=== PATIENT | male | born 1955 | race Caucasian/White ===

== ENCOUNTER 2018-07-02 09:00 | Outpatient (RCR) | payer BC, SELFPAY ==
--- NOTE | 2018-07-02 09:10 | BH.SGPN.GN ---
Behaviors/Verbalizations/Mental Status: [] Eye contact is good. Motor activity is appropriate. Appearance is casual. Speech is Appropriate. Mood is anxious/depressed. Affect is congruent. Thoughts are linear and logical. No evidence of psychosis. Reviewed daily check in sheet and reported 03/09/ for suicidal ideations and 03/09 for intent. Therapist notified Client Response/Progress/Benefit: [] Pt spoke when prompted however was attentive. This was patient's first day in IOP. Shared with the group what led to admission. Reports overwhelming depression recently. Discussed of his adult son 3 years ago in car accident and I just can't get over it... I've hit a wall. Isolating and utilizing unhealthy coping skills such as drinking to numb emotions. Talked at length about difficulty managing his emotions with limited benefit from medications and traditional counseling. No progress noted. Benefited from group support and encouragement. Will continue in IOP to maintain safety, stabilize mood, and increase coping skills. Narrative Note: []
--- NOTE | 2018-07-02 10:15 | BH.SGPN.GN ---
Behaviors/Verbalizations/Mental Status: []Client alert and oriented, neatly dressed and groomed. Eye contact fair-eyes closed at times and rubbing his head. Motor activity appropriate. Speech within normal limits. Affect constricted, mood depressed. Thoughts linear, logical, no signs of hallucinations or delusions. Client Response/Progress/Benefit: []Client responded well to session, quiet, but nodding frequently. Client listened to comments on the quote and nodded when the group mentions in order to ?carry the load? one needs coping skills. The group mentioned there are unhealthy and healthy coping skills that one learns over the years. Client nodded that healthy coping skills have more benefits; however, most people turn to unhealthy coping skills such as drinking, overworking, or avoidance because it is easier. The group mentioned often negative consequences occur from using unhealthy coping skills. Client engaged in the activity and was able to make the connection that one must have a strong base of internal and external coping skills. Client realized that during the activity his group kept looking for the ?quick fix? which they were able to connect to reverting to using coping skills that are easy, but not always healthy. Client appeared to benefit from increasing awareness of the importance of developing healthy coping skills. Client?s first day of IOP. Client to continue to prevent decompensation and reduce depressive symptoms.
--- NOTE | 2018-07-02 11:20 | BH.SGPN.GN ---
Behaviors/Verbalizations/Mental Status: [Pt eye contact good, casually dressed, motor activity appropriate, speech normal rate and tone -limited input provided, mood anxious and depressed, congruent affect, thoughts linear and intact, no evidence of delusions or hallucinations.] Client Response/Progress/Benefit: [Pt providing limited input to group due to it being his first day and is adjusting to group environment. He did well to remain attentive to group discussion on different types of coping skills AEB maintaining eye contact and taking notes throughout. Pt nodding during discussion on pros/cons of each category of coping skill discussed. Pt seemed to benefit from increasing repertoire of healthy coping skills and displayed progress in ability to recognize types of coping skills he would benefit from further developing. Identified wanting to improve use of grounding related coping skills. Pt recommended to continue IOP level of care to promote utilization of healthy coping skills, reduce depression, promote stability and maintain safety.] Narrative Note: []
--- NOTE | 2018-07-02 14:02 | BH.COMM ---
Communication Note - Communication with Client Communication Note: Therapist followed up with client as it was his first day in [facility]. Client reported group was helpful and it really sunk in with me. Therapist also assessed risk and suicidality as client marked 1/5 for thoughts of suicide and risk of suicide. Client declined any suicidal thoughts, plan, or intent as of 07/02/18. Client reported confusion on the self-assessment scale, I didn't think it went lower than 1. Client reported I have no suicidal thoughts at all. Client reports plan to attend group again on 07/04/18.
--- NOTE | 2018-07-02 14:06 | BH.COMM_ITS ---
Communication Note - Communication with Client Communication Note: Therapist followed up with client as it was his first day in [facility]. Client reported group was helpful and it really sunk in with me. Therapist also assessed risk and suicidality as client marked 1/5 for thoughts of suicide and risk of suicide. Client declined any suicidal thoughts, plan, or intent as of 07/02/18. Client reported confusion on the self-assessment scale, I didn't think it went lower than 1. Client reported I have no suicidal thoughts at all. Client reports plan to attend group again on 07/04/18.
--- NOTE | 2018-07-02 16:17 | BH.DR.ITP ---
Initial Treatment Plan - Patient Information Visit Information: ADMISSION DATE: 07/02/18 EXPECTED LOS: 4-6 weeks Diagnoses:: MDD, recurrent, unspecified. LOLY. Adjustment Disorder - Problems/Symptoms Problem #1:: Depression Symptom:: sadness, passive thoughts of , grieving Problem #2:: Anxiety Symptom:: anxiety, worry, difficulty coping with stress Problem #3:: Alcohol Use Disorder Symptom:: self-medication with alcohol, lack of coping skills
== END 2018-07-02 23:59 ==
LOC: BHIOP 09:00
PROVIDERS: Referring Provider Psychiatry & Neurology Psychiatry; Visit Provider Psychiatry & Neurology Psychiatry
DX: F33.9 Major depressive disorder, recurrent, unspecified (principal); F41.1 Generalized anxiety disorder; F43.20 Adjustment disorder, unspecified
CPT/HCPCS: H0035; 90853

== ENCOUNTER 2018-07-04 09:00 | Outpatient (RCR) | payer BC, SELFPAY ==
--- NOTE | 2018-07-04 09:10 | BH.SGPN.GN ---
Behaviors/Verbalizations/Mental Status: [] Eye contact is good. Motor activity is appropriate. Appearance is casual. Speech is Appropriate. Mood is depressed. Affect is flat. Thoughts are linear and logical. No evidence of psychosis. Reviewed daily check in sheet with no reports of suicidal ideations. Client Response/Progress/Benefit: [] Pt spoke when prompted. Emotion for today is scattered. Reports that he continues to severely struggles with controlling negative and intrusive thoughts. Feels embarrassed that he has no control over his thoughts and emotions. I'm always down on myself. Talked at length regarding his daily struggle with depression. Discussed coping skills which had been effective for anxiety such as mindfulness being ineffective for depression. States I can't believe that I'm actually like this group thing. Reports benefit from support and feeling as if he is not alone. Set goal not to drink this week. Will continue in IOP to maintain safety, improve coping for depression, prevent decompensation. Narrative Note: []
--- NOTE | 2018-07-04 11:10 | BH.SGPN.GN ---
Behaviors/Verbalizations/Mental Status: []Client alert and oriented, neatly dressed and groomed. Eye contact good. Motor activity appropriate. Speech within normal limits. Affect congruent to topics being discussed, mood depressed Thoughts linear, logical, no signs of hallucinations or delusions. Client Response/Progress/Benefit: []Client responded well to session, quiet, but engaged when prompted. Client listened as the group processed the activity and nodded that communication and tuning out the negatives helped the group accomplish the activity. Client completed the fear of failure worksheet and he reported that his biggest fear of failure is letting down the people he cares about. Client reported no desire to address conflict is his barrier to overcoming fear of failure. Client helped the group identify strategies to overcome fear of failure and client selected a goal to help him overcome his fear of failure. Client?s goal is to work on ?doing the anxious thing.? Client shared he has been avoiding things over the past few months, but he is more willing to take small steps now. Client appeared to benefit from gaining awareness and setting a goal to reduce fear of failure. Client?s second day of IOP, so no significant progress to document. Client to continue IOP to prevent decompensation and increase mood stability.
--- NOTE | 2018-07-05 10:15 | BH.SGPN.GN ---
Behaviors/Verbalizations/Mental Status: []Client alert and oriented, neatly dressed and groomed. Eye contact good. Motor activity appropriate. Speech within normal limits. Affect constricted, mood depressed, anxious. Thoughts linear, logical, no signs of hallucinations or delusions. Client Response/Progress/Benefit: []Client was a passive participant in group discussion and activity. Group worked together to identify the benefits of setting goals which included; increased motivation, maintenance in progress, accountability, sense of accomplishment, and hope. Group discussed the barriers to following through with completing a goals which included; high expectations, low motivation, negative self-talk, putting other?s needs first, hopelessness, and not knowing where to start. Client took notes and was nodding throughout discussion. Client was attentive during psychoeducation on developing SMART (Specific, Measurable, Achievable, Realistic, Timely) goals as a tool to help with goal setting. Client?s affect and mood improved during the activity and he helped the group set realistic goals. Benefited from group by learning effective strategies for goal-setting and identifying barriers to completing goals.
--- NOTE | 2018-07-05 11:20 | BH.SGPN.GN ---
Addendum entered and electronically signed by Cele Casas [facility] 07/09/18 10:51: Addendum added to include missing section of goal of group and staff interventions. Goal of group: The goal of group was to identify a short-term SMART goal to benefit mental health, explore potential barriers to achieving that set goal, and identify strategies to overcome barriers. Staff Interventions: Therapist facilitated group activity in which group members identified a goal to work on over the next week. Therapist asked group members to identify barriers to achieving identified goal and strategies to help them achieve their goal. Therapist led group in processing their goal, assisting clients with establishing SMART goals. Therapist provided support by using reflective listening. Original Note: Behaviors/Verbalizations/Mental Status: []Pt alert and oriented, eye contact good, casually dressed, motor activity appropriate, speech normal rate and tone, mood anxious, congruent affect, thoughts linear and intact, no evidence of delusions or hallucinations. Client Response/Progress/Benefit: []Pt appeared disengaged during group discussion however did complete goal setting worksheet. Pt identified her short-term SMART goal is to go outside for at least 10 minutes a day. Pt stated this goal will benefit her decreasing isolation. Pt identified not having time as one obstacle that could get in the way of her accomplishing her goal. Pt stated she can overcome not having time by putting it into her daily schedule. Pt stated another barrier apathy which she stated she can overcome this barrier by reminding herself of the benefits and taking her daughter outside with her. Pt seemed to benefit from creating a SMART goal. Pt to continue IOP level of care to decrease negative self-talk, maintain safety and prevent decompensation. Narrative Note: []
--- NOTE | 2018-07-05 15:12 | HP.PCM_ITS ---
History and Physical Date of Admission: 07/02/18 Chief Complaint: The patient is a 62-year old male who is beginning treatment in the intensive outpatient mental treatment program at [facility]. He has a history of generalized anxiety and recent worsening depression. He also has marital problems, some personality vuln erabilities, alcohol problems, and grief issues. History of Present Illness: The patient reports that he has had anxiety problems for most of his life. He is a big worrier and tends to worry about many different things. His anxiety has been under fairly good control with the help of his medications. Next Patient reports that he has had problems with depression ever since his son 3 years ago. He worked through his initial grief issues with the help of therapy. However, on the anniversary of his son's he becomes depressed again. His depression has worsened more this year, the third anniversary of his son's . He became increasingly depressed about 3 weeks ago. He does say that his medications are helping him. His sleep and appetite are good. His energy level is good. He denies crying spells. He is able to enjoy some things in life. He does have hope for the future. He denies suicidal thoughts. Patient reports problems in his marriage. He has been for 38 years. For the most part things are going pretty well until several years ago when he found out that his had taken out credit cards that he was not aware of had been spending large amounts of money. He had planned to retire at age 57 but then had to keep working to pay off the credit card bills. He confronted his about her spending, and she reportedly made light of it, said that she would cut down on her spending. However, he was deeply wounded by her behavior and thought of it as a betrayal of their marriage. He is still suspicious and worried that she is spending money excessively. In addition, he has started ruminating over his 's partners prior to their marriage - he is obsessing over betrayal issues. He has not been able to talk to his about these issues because he feels that he would lose his temper and cause problems in the marriage. Instead, he holds his resentment N and drinks alcohol excessively. The patient has a history of personality vulnerabilities. He has had anger problems all of his life. In his younger years he used to get into frequent fights. He would also drink alcohol and his anger became worse. He said that his anger problems improved after his marriage and only came out again in the setting of his 's spending of money. During the evaluation, the patient expressed his demoralization and I provided supportive therapy. Past Psychiatric History: The patient has never been admitted to a psychiatric hospital. He said that in the past he has gone to the emergency room on 2 occasions because of chest pains caused by panic symptoms and anxiety. He denies any history of suicide attempts. He has been receiving outpatient mental health care through [facility] for the past year and sees a therapist and nurse practitioner. He first received mental health treatment 3 years ago after his son . Current Psychiatric Medications: Effexor XR 225 mg daily, BuSpar 15 mg 3 times daily, Ativan 1 mg as needed Medical History: The patient has hypercholesterolemia treated with atorvastatin. Allergies: No known drug allergies Family Psychiatric History: The patient's mother and brother have depression. Personal/Social History: The patient's mother 2 years ago and his father 4 years ago. He reported a happy upbringing and said that he was raised in a [employer] family. He continues to live with his 2 brothers and sister on a [place] and said they get along well together. He dropped out during his first year of college. 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 He has been for 38 years and there have been problems in the marriage as per the HPI. He has 1 son who in an accident 3 years ago. Substance abuse history: The patient stated that he was a heavy drinker during high school and young adulthood. Drinking cut down after his marriage. Drinking worsened 4 or 5 years ago in the setting of marital problems. Binge drinks on Mondays and Fridays until I do not feel any pain. He has at least 4 drinks at a time. He has a history of hangovers but no blackouts. Denied any illegal drug use. Review of Systems: Psychiatry: Symptoms of depression and grieving as per HPI. He is not suicidal. There is no psychosis. He is cognitively intact. Constitutional: He is of muscular build and his weight has been steady. His energy level is good. He has hypercholesterolemia. All other systems reviewed and are negative. Examination: The patient presented as a demoralized male with short hair who is neatly dressed and groomed. He demonstrates good social skills. Vital signs: Height 5 feet 10 inches, weight 215 pounds, respirations 16. Musculoskeletal: No muscle weakness or joint pain. His speech is fluent and spontaneous. Leg which is intact. His judgment and insight are fair. He is alert and oriented x3. His affect is distressed and demoralized. His recent and remote memory are intact. He demonstrates normal attention span and concentration. He has normal thought processes and abstract reasoning. His associations are intact. There are no hallucinations or delusions and he is not suicidal or homicidal. He demonstrates normal age-appropriate fund of knowledge. Mental Status Examination: Patient presents as a demoralized male who demonstrates good social skills. His thoughts are logical and coherent. He reported some symptoms of depression and grieving as per HPI. He is not suicidal. There is no psychosis. He is cognitively intact. Diagnoses: [] Naylor I: Depressive disorder unspecified; generalized anxiety disorder; bereavement T: Relationship distress with spouse: Alcohol use disorder Naylor II: Personality vulnerabilities with angry traits Naylor III: Hypercholesterolemia Plan: The patient will continue current medicines at their current doses. Will participate in the intensive outpatient groups. I recommended couples therapy. During the evaluation I provided 17 minutes of supportive and prolem-solving therapy.
--- NOTE | 2018-07-05 15:12 | BH.DR.ITP ---
Initial Treatment Plan - Patient Information Visit Information: ADMISSION DATE: EXPECTED LOS: 4-6 weeks Diagnoses:: Depression unspecified; LOLY; adjustment disorder with disturbance of emotions ; alcohol use disorder - Problems/Symptoms Problem #1:: depression Symptom:: feeling sad; grieving; some passive thoughts Problem #2:: anxiety Symptom:: worry, feeling anxious, problems coping with stress Problem #3:: alcohol use disorder Symptom:: lack of coping skills, using alcohol for self-medication
--- NOTE | 2018-07-05 16:31 | BH.MDN_ITS ---
Multi-Disciplinary Note - Note 30-min Individual Time Started:: 09:25 Date: 07/05/18 Purpose of session/treatment goals addressed:: Purpose of session was to assess pt's current symptoms and stressors. Also started discussion about treatment goals for IOP and processed underlying stressor. Eye Contact:: Good Motor Activity:: Appropriate Appearance:: Casual Speech:: Appropriate Mood:: Anxious, Depressed Affect:: Constricted Thoughts:: Linear, Logical, No evidence of hallucinations/delusions noted Staff Interventions:: Therapist used open ended qeustions to elicit pt's current symptoms and stressors. Therapist processed pt's current emotional stressor of not dealing with a situation from his past. Therapist elicited pt's thoughts about treatment goals for IOP. Therapist provided support by using active listening and validating emotions. Client Response:: Client shared he has been struggling with managing his depressive symptoms. Client reported he is better able at managing his anxious symptoms because he utilizes mindfulness skills. Client shared the third anniversary of his son's was last month which has exasperated his depressive symptoms. Client stated he is upset with himself for not being able to just move on. Client shared he believes the underlying issue that is contributing to his depression is something that happened about 15 years ago that he hasn't talked about until he met with the psychiatrist this morning. Client reported about 15 years ago he found out his got them into over $75,000 in debt which he didn't know until was being called by various creditors. Client stated at the time his refused to talk about what happened and what had happened to all their money. Client shared despite feeling like she broke his trust with the situation he chose to stay in the marriage and just move on. Client shared he is frustrated for himself for not being able to just man up about the situation. Client reported he is starting to recognize pushing down his feelings are not healthy for him which he stated has resulted in him starting to use alcohol as a coping skill at times. Client stated he is unsure if he is ready to address the situation with his because he is wo rried she will view him as weak and doesn't want to upset her. Client recognizes his childhood upbringing has shaped his view that he needs to be a man but reported he is starting to see how his old way of dealing with situations has not been healthy. Client identified wanting to continue to process this situation as one of his goals in therapy. Client stated he'd also like to learn healthy coping strategies to manage depressive symptoms and anger. Risks/Concerns:: Client denies suicidal ideation, plan or intention to date. Progress Toward Goals/Plan:: Client progressing as evidenced by client's report of having improved mood since he started IOP this week. Client stated he thinks he has benefitted already from the program because talking about how he feels is helping him. Client's progress could be hindered by client having hx of putting others needs before his own. Client to continue IOP level of care to decrease depression, increase healthy coping, and prevent decompensation. Time Stopped:: 10:00
--- NOTE | 2018-07-09 09:10 | BH.SGPN.GN ---
Behaviors/Verbalizations/Mental Status: [] Eye contact is good. Motor activity is appropriate. Appearance is casual. Speech is Appropriate. Mood is depressed. Affect is flat. Thoughts are linear and logical. No evidence of psychosis. Reviewed daily check in sheet and no reports of suicidal ideations or intent Client Response/Progress/Benefit: [] Pt spoke when prompted. Appeared distressed. Tearful at times. Shared that his weekend was mixed. On Sunday he spent a majority of his time with his grandkids, however on Sunday I fell apart. Reports that he was tense, anxious, and in a depressive haze. Described this haze and group provided support and feedback. Struggles with intrusive thoughts which lead to depression and impact functioning and lead to hopelessness. Able to identify that he had a good talk with program psychiatrist last week and is hopeful that he is going to make some progress. Did not share anymore. Limited progress noted. Will continue in IOP to maintain safety, decrease intrusive depressive thoughts, and increase functioning. Benefited from group support and encouragement. Narrative Note: []
--- NOTE | 2018-07-09 10:08 | BH.SGPN.GN ---
Behaviors/Verbalizations/Mental Status: []Client alert and oriented, neatly dressed and groomed. Eye contact good. Motor activity tense. Speech within normal limits. Affect congruent to mood, mood dysthymic, irritable. Thoughts linear, logical, no signs of hallucinations or delusions. Client Response/Progress/Benefit: []Client responded well to session, quiet, but participating when prompted. Client connected with the quote and concept of having different chapters in one?s life. Group identified things that can prevent people from moving forward to their next chapter such as; fear of the unknown, negative thoughts, lack confidence, anger, and lack of awareness. Client helped group discuss the ?chapters of my life? handout and was able to make connections to emotions, thoughts, and actions in each chapter. Client identified himself as in chapter 2/3 as client shared he understands his emotions and has learned coping skills, but he is struggling with forgiveness and moving forward. Client reported a barrier keeping him from getting to chapter 3/4 is self-anger. Client appeared to benefit from increasing self-awareness of current chapter and barriers. Client appears to be progressing in increasing awareness of distortions and learning about self-compassion. Client continues to struggle with managing depressive symptoms and can continue to benefit from IOP level of care.
--- NOTE | 2018-07-09 11:17 | BH.SGPN.GN ---
Behaviors/Verbalizations/Mental Status: []Pt eye contact good, casually dressed, motor activity appropriate, speech normal rate and tone, mood anxious and irritable, congruent affect, thoughts linear and intact, no evidence of delusions or hallucinations. Client Response/Progress/Benefit: []Pt listened attentively to others during group discussion, contributed thoughts during small group discussion. Completed WDEP (Wants, Doing, Evaluate, and Plan) worksheet. Pt identified want as I want to cope with emotions and decrease anger. Pt expressed having a lot of anger towards himself. Able to identify that he is currently avoiding dealing with his emotions and not talking about how he feels. Stated he recognizes current actions are not helping him move closer to his want. Pt identified his plan is to open up by talking about his problems. Benefited from group by identifying thoughts and behaviors that are keeping him stuck and developing plan to become unstuck. Will continue in IOP to increase healthy coping, prevent decompensation, and decrease anger. Narrative Note: []
--- NOTE | 2018-07-11 09:05 | BH.SGPN.GN ---
Behaviors/Verbalizations/Mental Status: [] Eye contact is good. Motor activity is appropriate. Appearance is causal. Speech is Appropriate. Mood is depressed. Affect is flat. Thoughts are linear and logical. No evidence of psychosis. Reviewed daily check in sheet and no reports of suicidal ideations or intent. Client Response/Progress/Benefit: [] Pt was an active participant in group discussion. Shared in great detail about current stressors including relationships which are impacting his thoughts. Shared recent break-throughs during IOP which have motivated him to address ruminating thoughts which he has been pushing down for 15 years. Had difficult conversation with last night and is currently willing to participate in family counseling. Group provided feedback and praised him for his strength to address conflict rather than avoid it. Progress noted. Benefited from group feedback and support. Will continue in IOP to prevent decompensation, address family concerns, and decrease intrusive thoughts. Narrative Note: []
--- NOTE | 2018-07-11 10:12 | BH.SGPN.GN ---
Behaviors/Verbalizations/Mental Status: [Pt alert and oriented, casually and neatly dressed, appropriate grooming. Eye contact good. Motor activity WNL. Speech appropriate rate/tone. Affect constricted, mood depressed and anxious. Thoughts linear, logical, no signs of hallucinations or delusions.] Client Response/Progress/Benefit: [Pt receptive of session, actively listening AEB nodding and taking notes, though providing limited input during discussion. Pt remained attentive to discussion on barriers to effective communication and importance in maintaining healthy communication for mental health. Nodding as group identified potential communication potholes impacting ability to engage with others, indicated connecting with barriers of fear and lack of attention. Pt appeared to benefit from increasing awareness of how communication impacts mental health. Pt recommended to continue IOP to increase insight and use of coping skills for depression and anxiety, as well as prevent decompensation. ] Narrative Note: []
--- NOTE | 2018-07-11 13:16 | BH.MDN ---
Multi-Disciplinary Note - Note 30-min Individual Time Started:: 12:17 Date: 07/11/18 Purpose of session/treatment goals addressed:: Purpose of session was to assess pt's current symptoms and stressors. Processed relationship stressor, reviewed healthy communication and identified wants for relationship. Eye Contact:: Good Motor Activity:: Appropriate Appearance:: Casual Speech:: Appropriate Mood:: Anxious, Dysthymic Affect:: Congruent Thoughts:: Linear, Logical, No evidence of hallucinations/delusions noted Staff Interventions:: Therapist used open ended questions to elicit pt's current symptoms and stressors. Therapist processed conversation pt had with his yesterday. Therapist validated pt's thoughts and feelings. Therapist elicited pt's wants in regards to his marriage. Therapist provided psychoeducation about effective communication styles. Therapist discussed scheduling a family session with pt and his . Client Response:: Client reported he had a conversation with his last night about needing to be able to process and talk about what happened 15 years ago. Client shared his immediately became defensive and told him that he always attacks her. Client stated he tried to be open and honest with his and made it clear that he could no longer go on in their marriage without addressing the break of trust 15 years ago. Client shared he has gained insight into how holding onto the anger and sadness of not understanding why his didn't include him in what she was doing 15 years ago with spending an excessive amount of money. Client able to connect how over the years of ignoring what happened he has been ruminating on it and now no longer can push those feelings and thoughts down. Client stated he wants to rebuild trust with his . Client identified wanting to know why she didn't go to him 15 years ago about the spending money problems she was having. Client stated he also wants to understand how she could embarrass and hurt him by putting them into debt without his knowledge. Client reported his is open to coming in for a family session. Client shared he wants to work on this because he knows he can't continue to pretend nothing happened. Client connected with psychoeducation about different ways to communicate. Client stated he recognzies sometimes he the way he words a statement or question can be misinterpreted. Client open to working on improving the way he communicates with others. Risks/Concerns:: Pt denies suicidal ideation, plan or intention to date. Progress Toward Goals/Plan:: Pt demonstrating progress as evidenced by pt communicating his thoughts, about a situation from the past, openly with his which is something pt has avoiding in over 10 years. Pt showing progress with increased self-awareness and insight of triggers and unhealthy coping strategies. pt to continue IOP level of care to improve communication, increase use of healthy coping and prevent decompensation. Time Stopped:: 12:51
--- NOTE | 2018-07-12 09:05 | BH.SGPN.GN ---
Behaviors/Verbalizations/Mental Status: [] Eye contact is good. Motor activity is appropriate. Appearance is casual. Speech is Appropriate. Mood is depressed. Affect is flat. Thoughts are linear and logical. No evidence of psychosis. Reviewed daily check in sheet and no reports of suicidal ideations or intent. Client Response/Progress/Benefit: [] Pt participated in group discussion. Pt continues to report intrusive thoughts and ruminations on several topics mainly his relationship with . Verbalized several cognitive distortions and at one point stated that his outpatient therapist whom he has been with for years gave up on my. Discussed how he has been stuffing down an issues which turns out is central to his negative thoughts and depression. Has been avoiding this topic and recently had a conversation with . Reports that it was beneficial however painful. Group provided support and encouragement. Pt was engaged in feedback with group and benefited from other's perspectives and experiences. Progress noted. Has family sessions arranged. While he is addressing rather than avoiding it has brought up significant depression and stress. Will continue in IOP to maintain safety, stabilize emotions, and work on significant relationships stressors. Narrative Note: []
--- NOTE | 2018-07-12 10:10 | BH.SGPN.GN ---
Behaviors/Verbalizations/Mental Status: [] Eye contact is good. Motor activity is appropriate. Appearance is casual. Speech is Appropriate. Mood is depressed. Affect is flat. Thoughts are linear and logical. No evidence of psychosis. Client Response/Progress/Benefit: [] Pt was an active participant in group discussion. Attentive during psycho-education on boundaries. Worked with fellow group members to define what it means to set up a boundary. Group identified what happens when we have poor boundaries which includes; burn-out, people taking advantage of you, people pleasing, and decreased time for ourself and our issues. Identified what the result of rigid boundaries would be which includes; no close relationships, isolation, and loneliness. Attentive during education on the types of boundaries which include; physical, emotional, intellectual, sexual, material, and time. Group also identified the purpose of healthy boundaries as they can; remove toxic relationships, protect relationships by developing clear expectations, give us permission to care for ourselves, help us develop and have healthy connections, makes us feel safe, and helps protect us from taking on other people's stressors. Benefited from group by increasing education and aware of boundaries and how they impact mental health. Will continue in IOP to maintain safety, prevent decompensation, and stabilize mood. Narrative Note: []
--- NOTE | 2018-07-12 11:15 | BH.SGPN.GN ---
Behaviors/Verbalizations/Mental Status: []Client alert and oriented, neatly dressed and groomed. Eye contact good. Motor activity appropriate. Speech within normal limits. Affect congruent to mood, mood irritable, depressed. Thoughts linear, logical, no signs of hallucinations or delusions. Client Response/Progress/Benefit: []Client responded well to session, quiet, but participating when prompted. Client listened to the discussion of the different boundary setting styles. Client self-identified with the rigid boundary setting style. Client shared ?I was raised old school that I?m a man and I shouldn?t need people to help me.? Client stated now that he is older he realizes ?that couldn?t be more wrong? and that he wants to become more open to connecting with people. Client reported being rigid has kept client from asking for help and making friendships. Client listened as the group identified characteristics of healthy boundaries such as saying no when appropriate, knowing one?s limits, and stating clear expectations. Client appeared to benefit from increasing awareness of her personal boundary style and from learning ways to increase healthy boundaries. Progress noted as client reports increased self-awareness, but he continues to report self-blame, depression, and unhealthy coping skills. Client to continue IOP to prevent decompensation and increase mood stability.
--- NOTE | 2018-07-16 09:10 | BH.SGPN.GN ---
Behaviors/Verbalizations/Mental Status: [] Eye contact is good. Motor activity is appropriate. Appearance is casual. Speech is Appropriate. Mood is depressed. Affect is flat. Thoughts are linear and logical. No evidence of psychosis. Reviewed daily check in sheet and no reports of suicidal ideations or intent. Client Response/Progress/Benefit: [] Pt spoke when prompted. Attentive during group. Emotion for today is Depressed. Shared stressors and discussed recent family session. Stated several times I'm going to have to deal with it and work the program. Ruminating on past events with family and feeling lack of control which lead to depression and anxiety. Able to point out that he is addressing issues rather than avoiding however while beneficial is exhausting and overwhelming. Admits to utilizing unhealthy coping skills recently which increase guilt and feelings of failure. Limited progress. Benefited from group support, encouragement, and feedback. Will continue in IOP to stabilize emotions, prevent decompensation, provided support, and improve daily functioning. Narrative Note: []
--- NOTE | 2018-07-16 10:15 | BH.SGPN.GN ---
Behaviors/Verbalizations/Mental Status: []Client alert and oriented, neatly dressed and groomed. Eye contact good. Motor activity appropriate. Speech within normal limits. Affect constricted, mood irritable, depressed Thoughts linear, logical, no signs of hallucinations or delusions. Client Response/Progress/Benefit: []Client responded well to session, quiet, primarily an observatory participant. Client indicated connecting with the topic of cognitive distortions through nodding. Client listened to discussion of how negative thoughts impact one?s mental health and relationships. Client agreed with peers that cognitive distortions lead to increased symptoms, low self-esteem, and unhealthy coping skills. Client was attentive as the group defined and reflected upon various types of distortions. Client appeared to connect to distortions such as all or nothing thinking and labeling as shown by nodding. Client benefitted from increasing awareness of cognitive distortions and how they can impact emotions and behaviors. Progress noted as client brought in his for a family session yesterday. However, client continues to report feeling depressed, angry, and ?stuck.? Client to continue IOP to prevent further decompensation and increase emotional regulation.
--- NOTE | 2018-07-16 11:20 | BH.SGPN.GN ---
Behaviors/Verbalizations/Mental Status: [Client alert and oriented, casually dressed, hygiene well tended to. Eye contact good. Motor activity appropriate. Speech within normal limits. Affect constricted, mood depressed and anxious. Thoughts linear, logical, no signs of hallucinations or delusions.] Client Response/Progress/Benefit: [Pt receptive of session and actively listening throughout discussion on the various cognitive distortions and their potential impact on mental health. Pt provided minimal verbal input, though nodding throughout discussion, as well as taking notes. He appeared to connect with distortions reviewed AEB nodding while fellow participants provided input and indicated struggling with distortion of minimization. Pt did well to give input during small group discussion. He was able to identify what distortion was used in provided prompt, note potential mental health impacts, and brainstorm ways to reframe example thought. Benefitted from the review of thought challenging techniques and practical application of thought challenging skills. Recommended continued IOP tx to prevent decompensation, promote application of healthy coping skills, decrease healthy communication with supports, as well as decrease depression.] Narrative Note: []
--- NOTE | 2018-07-16 13:59 | BH.COMM ---
Communication Note - Communication with Client Communication Note: Completed brief check-in with pt at therapist request as she is off today. Pt denies any suicidal ideations, plan, or, intent. States I've never had any actual suicidal thoughts. Ruminating on relationship however states this is a good thing because I have to address this. Future-oriented.
--- NOTE | 2018-07-18 09:10 | BH.SGPN.GN ---
Behaviors/Verbalizations/Mental Status: [] Eye contact is good. Motor activity is appropriate. Appearance is casual. Speech is Appropriate. Mood is depressed. Affect is flat. Thoughts are linear and logical. No evidence of psychosis. Reviewed daily check in sheet and no reports of suicidal ideations or intent. Client Response/Progress/Benefit: [] Pt did not speak unless prompted. Reports that the is getting closer to coming out of deep depression Optimistic. Reports attempting to increase self-care skills. Continues to struggle with working through intrusive thoughts however is going to work the program. Talked a little more about his stressors and relationship with . Benefited from group support, feedback, and encouragement. Will continue in IOP to maintain safety, stabilize emotions, control intrusive thoughts, and improve daily functioning. Narrative Note: []
--- NOTE | 2018-07-18 10:20 | BH.SGPN.GN ---
Behaviors/Verbalizations/Mental Status: []Client alert and oriented, neatly dressed and groomed. Eye contact good. Motor activity appropriate. Speech within normal limits. Affect flat, mood anxious, depressed. Thoughts linear, logical, no signs of hallucinations or delusions. Client Response/Progress/Benefit: []Client responded well to session, mostly quiet, but attentive. Client verbally agreed with the quote and comments made by peers about the barriers to making change. Client listened to discussion of what it means to ?take action? in one?s mental health treatment. Client agreed with peers that to make change one needs self-awareness and follow through. Client identified things in his life he wants to start taking control over and change. These things included: his emotions, blaming himself for his mental health, anger, and feeling like he must control everything in his life. Client stated if he could start gaining more control over these things he would feel more stable. Client appeared to benefit from identifying things that are holding him back from mental wellness.
--- NOTE | 2018-07-18 11:25 | BH.SGPN.GN ---
Behaviors/Verbalizations/Mental Status: [Client alert and oriented, neat and casually dressed and groomed. Eye contact good. Motor activity appropriate. Speech appropriate rate and tone. Affect congruent, mood dysthymic, anxious. Thoughts linear, logical, no signs of hallucinations or delusions.] Client Response/Progress/Benefit: [Client was an active participant AEB client providing some input to discussion and taking notes throughout. Attentive and connecting to discussion of the different zones of taking action as well as the pros and cons of each. Client agreed with peers that to grow and improve mental health, one must step out of their comfort zone, but not take on too much at once to prevent staying stuck but also avoid burnout. Client completed worksheet in which he identified a problem area to focus on, a SMART goal to help work on problem area, and identify additional supports needed to be successful. Client identified he wants to improve emotion regulation. Client identified a small goal which is to identifying warning signs and use thought challenging when recognizing distorted thoughts causing irritability. Client stated additional supports needed to be successful with goal which included: positive self-talk, reminding self of importance of doing so for his mental health and relationships, and using calming skills. Appeared to benefit from creating a small goal to aid in mental health progress. Will continue IOP tx to promote use of healthy coping skills, reduce anxiety, improve mood stability, and prevent decompensation.] Narrative Note: []
--- NOTE | 2018-07-19 09:12 | BH.SGPN.GN ---
Behaviors/Verbalizations/Mental Status: [Eye contact is good. Motor activity is appropriate. Appearance is neat and casual. Speech is Appropriate. Mood is depressed, irritable. Affect is constricted. Thoughts are linear and logical. No evidence of psychosis. Reviewed daily check in sheet and no reports of suicidal ideations or intent.] Client Response/Progress/Benefit: [Pt was a mostly passive participant in group discussion, willing to process with group. Emotion for today is angry. Identified some mental health wins as practicing slowing down when recognizing warning signs so he does not escalate and attending AA. States that it has been stressful continuing to work on his relationship and challenging resentment that impacts ability to communicate with her in healthy ways. Reports insight that increasing self-care may aid in improving emotion regulation, but discussed ?self-care is hard? and struggles to find ?me time?. While it has been a struggle with his mental health due to recent stressors he states i haven't given up. Benefited from group support and encouragement. Will continue in IOP to prevent decompensation, improve daily functioning, and increase emotion regulation.] Narrative Note: []
--- NOTE | 2018-07-19 10:25 | BH.SGPN.GN ---
Behaviors/Verbalizations/Mental Status: [Client alert and oriented, casually dressed and groomed. Eye contact good. Motor activity appropriate. Speech within normal limits. Affect congruent, mood euthymic, anxious, irritable. Thoughts linear, logical, no signs of hallucinations or delusions. ] Client Response/Progress/Benefit: [Client engaged participant as shown by client?s positive contribution to discussion and helpful insight. Client participated in the discussion of the common myths about self-care including self-care is selfish, easy, makes us weak, and always fun. Indicated struggling with myth that self-care is selfish, makes him weak, and that it is times consuming. Agreed with participants who noted difficulties in finding time they feel they can justify for self-care as he often can think of other responsibilities requiring his attention. Client worked with group to debunk the myths about self-care. Client stated he is beginning to see how important self-care is in improving ability to better regulate emotions, decrease resentment, and improve personal relationships. Client seemed to benefit from increased awareness of the importance of self-care. Client progress shown by increased engagement and ability to connect with materials discussed. Will continue IOP tx, to increase improve mood stability, further promote application of healthy coping skills, improve anger management, and prevent decompensation.] Narrative Note: []
--- NOTE | 2018-07-19 11:25 | BH.SGPN.GN ---
Behaviors/Verbalizations/Mental Status: [] Eye contact is good. Motor activity is appropriate. Appearance is casual. Speech is Appropriate. Mood is depressed. Affect is flat. Thoughts are linear and logical. No evidence of psychosis. Client Response/Progress/Benefit: [] Pt was attentive during group discussion however did not provide feedback on the topic. Attentive during psychoeducation on types of self care which are spiritual, physical, emotional, social, financial, psychological, and professional. Admits to poor self-care. Will continue in IOP to maintain safety, stabilize emotions, and learn ways to manage conflict/grief which is impacting functioning. Narrative Note: []
--- NOTE | 2018-07-23 09:10 | BH.SGPN.GN ---
Behaviors/Verbalizations/Mental Status: [] Eye contact is good. Motor activity is appropriate. Appearance is casual. Speech is Appropriate. Mood is depressed. Affect is flat. Thoughts are linear and logical. No evidence of psychosis. Reviewed daily check in sheet and no reports of suicidal ideations or intent. Client Response/Progress/Benefit: [] Pt spoke with prompted. Emotions for today is hopeful. Pt reports I have to hopeful that this process will work Shared that he had a panic attacks while at the [employer] games yesterday. Has not had a panic attack in a couple months. States that he is begning to address the cause or root of his depression, anger, trust issues, and anxiety which has resulted in some erratic emotions. Admits to struggling to cope however believes that addressing rather than avoiding will have long-term benefits. Benefited from group support, feedback, and encouragement. 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 Narrative Note: []
--- NOTE | 2018-07-23 10:20 | BH.SGPN.GN ---
Behaviors/Verbalizations/Mental Status: []Client alert and oriented, neatly dressed and groomed. Eye contact good. Motor activity appropriate. Speech within normal limits. Affect constricted, mood euthymic. Thoughts linear, logical, no signs of hallucinations or delusions. Client Response/Progress/Benefit: []Client receptive of session, mostly passive participant. Participated in the activity and was attentive to the discussion of the group topic of resilience. Client agreed with the group definition of resilience as being able to overcome adversity and ?spring back? despite lives challenges. Client listened to examples of how resilience can positively impact mental health and wellness. Client engaged in small group discussion about the various strategies that can help strengthen one's resilience and provided examples of the benefits of establishing supportive connections and moving towards one?s goals in increasing resilience. Client seemed to benefit from increased awareness of various components that can contribute to resilience. Progress noted as client reports utilizing mindfulness to help manage his symptoms. However, client continues to report self-blame, anger, and rumination that reinforces depressive symptoms.
--- NOTE | 2018-07-23 11:17 | BH.SGPN.GN ---
Behaviors/Verbalizations/Mental Status: [Client alert and oriented, casually dressed and appropriately groomed. Eye contact fair to good. Motor activity appropriate. Speech within normal limits. Affect congruent to topic being discussed, mood euthymic, agitated. Thoughts linear, logical, no signs of hallucinations or delusions.] Client Response/Progress/Benefit: [Client engaged participant throughout which was evidenced by client providing some input to discussion and listening attentively to peers. Client worked cooperatively with peers to identify how each resiliency factor can help increase personal resiliency. Client reported he wants to work on the resiliency component of ?take care of yourself?. Client stated he will work on increasing personal resilience by improving ability to engage in self-care daily and begin to improve communication with himself and others. Reports plans to improve use of self-compassionate statements. Client appeared to benefit from identifying goal to improve personal resilience factors. Client to continue IOP to continue to encourage increased use of healthy coping skills, continue to reduce irritability, increase mood stability, and prevent decompensation.] Narrative Note: []
--- NOTE | 2018-07-25 09:10 | BH.SGPN.GN ---
Behaviors/Verbalizations/Mental Status: [] Eye contact is good. Motor activity is appropriate. Appearance is casual. Speech is Appropriate. Mood is anxious. Affect is congruent. Thoughts are linear and logical. No evidence of psychosis. Reviewed daily check in sheet and no reports of suicidal ideations or intent. Client Response/Progress/Benefit: [] Pt spoke when prompted. Shared with the group that he had a panic attacks yesterday while attending a conference. Reports that the anxiety lasted all day. Could not take his PRN medications b/c he was driving. Has noticed an increase in panic attacks in the past week. He associates this with relationship stressors and unresolved issues. He remains hopeful stating I know I'm on the right path with addressing these unresolved issues and reports that if he knows it will get better than is helpful. Appears that his does not want to start marriage counseling currently. Unclear on the motivation behind this decision. Regression noted with panic attacks. Benefited from group support. Pt verbalizes often that he gets a great deal from groups. Will continue in IOP to increase coping skills, stabilize emotions, and work on strategies to improve relationships. Narrative Note: []
--- NOTE | 2018-07-25 11:30 | BH.SGPN.GN ---
Addendum entered and electronically signed by FADY Meraz 03/09/19 12:51: Amended to include missing group #2 documentation Date: 07/25/18 1025 Duration: 54 minutes Assistant Controller: Angelica Sultana/FADY Group Topic: [Rat Trap] # of Participants: [9] Goal of Group: [To identify within self what is keeping client trapped from achieving better quality of life.] Staff Interventions: [Therapist facilitated discussion about what is keeping client?s stuck from moving toward mental wellness. Therapist assisted clients in connecting how thoughts can contribute to keeping clients stuck. Therapist led discussion about barriers clients face from making changes to help one move forward. Therapist provided support by using active listening and giving feedback to others.] Behaviors/Verbalizations/Mental Status: Client alert and oriented, casually dressed and groomed. Eye contact good. Motor activity appropriate. Speech within normal limits. Affect congruent, mood agitated and dysthymic. Thoughts linear, logical, no signs of hallucinations or delusions. Client Response/Progress/Benefit: Client responded well to session, attentive and participating throughout. Participated in discussion of things that can keep people feeling trapped or stuck in life including; isolation, lack of trust, past experiences, negative perspective, lack of awareness, denial, fear, and low self-esteem. Group discussed the connection between thoughts, emotions, and behaviors as well as how negative thinking can keep a person stuck. Client indicated being able to identify how this has played out in regard to his relationships and maintaining irritability. Attentive during psychoeducation on maintenance cycles. Client able to identify negative thoughts that have reinforced depression and kept client feeling trapped. Client shared a negative thought maintaining depression as ?It?s too late for things to get any better.? Client reported this thought has caused increased irritability and resentment, led to wanting to give up, and led to increased avoidance and poor communication. Appeared to benefit from gaining awareness of how negative thoughts reinforce mental health symptoms and keep people stuck. Progress noted in client?s report of improved awareness of thoughts keeping her stuck. Will continue IOP to prevent decompensation, increase emotional regulation, reduce agitation, and maintain safety. Original Note: Behaviors/Verbalizations/Mental Status: []Client alert and oriented, neatly dressed and groomed. Eye contact good. Motor activity appropriate. Speech within normal limits. Affect flat-for most of session, mood dysthymic. Thoughts linear, difficulty formulating thoughts per his report, no signs of hallucinations or delusions. Client Response/Progress/Benefit: []Client responded well to session, quiet, participating when prompted. Client appeared to connect with how negative thinking can keep a person stuck. Client identified a negative thought that has kept him stuck which was ?I can?t accept this.? Client shared when he thinks this way it causes client to feel angry, depressed, anxious, and use unhealthy coping skills. Client recognized that this thought is unrealistic because he is working on acceptance. Client able to reframe the thought to ?I must work through this and know I can only do so much.? Client shared this thought would improve his mental health because it would help client feel more confident and reduce anxiety and anger. Client appeared to benefit from practicing challenging negative thinking. Client showing progress in increasing self-awareness and applying coping skills. Client to continue IOP to prevent decompensation and reduce negative core beliefs of self.
--- NOTE | 2018-07-26 09:10 | BH.SGPN.GN ---
Behaviors/Verbalizations/Mental Status: [] Eye contact is good. Motor activity is appropriate. Appearance is casual. Speech is Appropriate. Mood is depressed. Affect is flat. Thoughts are linear and logical. No evidence of psychosis. Reviewed daily check in sheet and no reports of suicidal ideations or intent. Client Response/Progress/Benefit: [] Pt spoke with prompted. Emotion for today is hopeful. Reports being overwhelmed. Recent in the family. Pt reports feelings like I want to shutdown however knows that will not be beneficial. Has not reached to alcohol to self-medicate. States I have to do it however I don't know how. Issues with marriage have been constant rumination and does not want marriage counseling. Group provided feedback and discussed positive from marriage counseling from some members. Limited progress noted. Some regression in the past week. Benefited from group support, feedback, and encouragement. Will continue in IOP to maintain safety, stabilize mood, and improve daily functioning. Narrative Note: []
--- NOTE | 2018-07-26 10:13 | BH.SGPN.GN ---
Behaviors/Verbalizations/Mental Status: []Eye contact is good. Motor activity is appropriate. Appearance is casual. Speech is Appropriate. Mood is depressed. Affect is flat. Thoughts are linear and logical. No evidence of psychosis. Client Response/Progress/Benefit: []Client responded well to session, attentive and listening to peers during discussion. Client listened to discussion of the importance of sleep and how it impacts mental health. Group able to identify benefits of sleep on mental health including: improved emotional regulation, better patience, improved attention, and better cognition. Client listened to the discussion of the ?dos and don?ts? of sleep hygiene. The group identified strategies to improve sleep hygiene including: turning off electronics, getting sunlight during the day, reducing caffeine, having a routine, and engaging in relaxation strategies. Client participated in identifying things to avoid or things that could hinder sleep quality including: drinking alcohol before bed, using substances, exercising before bed, eating large meals, and spending time on electronics. Appeared to benefit from psychoeducation on sleep hygiene. Will continue IOP tx as he continues to struggle with managing his depressive symptoms and anger.
--- NOTE | 2018-07-26 11:39 | PCM.PN.BLA ---
Progress Note Chief Complaint: The patient is a 62-year old male who is an active participant in the intensive outpatient mental health treatment program at [facility]. He has a history of generalized anxiety, depression, marital problems, some personality vulnerabilities, alcohol problems and grief issues. History of Present Illness/Interim History: The patient has good days and bad. He is working in groups on trying to manage his mental health symptoms. He finds groups helpful. He continues to have problems in his marriage, and his mood is often dictated by how things are going at home. He brought his in for a meeting with 1 of our therapists. He stated that he voiced his complaints and concerns and she became highly defensive. Similarly, he voiced her concerns and he became defensive. They have not had good communication since the marital session, but they have not had good communication in the long time.. He continues to feel bad about the relationship with his . He is still highly concerned about her spending of money, especially when the end up in debt. She manages the finances and is not transparent with him about the state of their finances. He said that it will be impossible for him to move forward and improve his mental health without current improvement in his marriage. He expressed demoralization and I provided supportive therapy. His level of anxiety and depression often depends on what is going on at home. He also still is grieving the of his son. Current Psychiatric Medications: Effexor XR 225 mg daily, BuSpar 15 mg 3 times daily, Ativan 1 mg as needed Review of Symptoms: Psychiatry: Symptoms of depression, anxiety and grieving continue as per HPI. He is not suicidal. There is no psychosis. He is cognitively intact. Constitutional: He is of muscular build and his weight has been steady. His energy level is good. Mental Status Examination: The patient presented as a demoralized male who demonstrates good social skills. His thoughts are logical and coherent. He reported ongoing intermittent symptoms of depression, anxiety and grieving as per HPI. He is not suicidal. There is no psychosis. He is cognitively intact. Diagnoses: [place] I: Depressive disorder unspecified, generalized anxiety disorder, bereavement, relationship distress with spouse [place] II: Personality vulnerabilities with angry traits [place] III: Hypercholesterolemia Plan: I am continuing treatment with Effexor XR, BuSpar and Ativan at their current doses. The patient will continue participation in the intensive outpatient groups. I highly recommended that he begin with his on a standard course of marital therapy. During the session I provided 16 minutes of supportive therapy. I will see him again for follow-up.
--- NOTE | 2018-07-26 11:48 | PN_ITS ---
Progress Note Chief Complaint: The patient is a 62-year old male who is an active participant in the intensive outpatient mental health treatment program at [facility]. He has a history of generalized anxiety, depression, marital problems, some personality vulnerabilities, alcohol problems and grief issues. History of Present Illness/Interim History: The patient has good days and bad. He is working in groups on trying to manage his mental health symptoms. He finds groups helpful. He continues to have problems in his marriage, and his mood is often dictated by how things are going at home. He brought his in for a meeting with 1 of our therapists. He stated that he voiced his complaints and concerns and she became highly defensive. Similarly, he voiced her concerns and he became defensive. They have not had good communication since the marital session, but they have not had good communication in the long time.. He continues to feel bad about the relationship with his . He is still highly concerned about her spending of money, especially when the end up in debt. She manages the finances and is not transparent with him about the state of their finances. He said that it will be impossible for him to move forward and improve his mental health without current improvement in his marriage. He expre ssed demoralization and I provided supportive therapy. His level of anxiety and depression often depends on what is going on at home. He also still is grieving the of his son. Current Psychiatric Medications: Effexor XR 225 mg daily, BuSpar 15 mg 3 times daily, Ativan 1 mg as needed Review of Symptoms: Psychiatry: Symptoms of depression, anxiety and grieving continue as per HPI. He is not suicidal. There is no psychosis. He is cognitively intact. Constitutional: He is of muscular build and his weight has been steady. His energy level is good. Mental Status Examination: The patient presented as a demoralized male who demonstrates good social skills. His thoughts are logical and coherent. He reported ongoing intermittent symptoms of depression, anxiety and grieving as per HPI. He is not suicidal. There is no psychosis. He is cognitively intact. Diagnoses: [place] I: Depressive disorder unspecified, generalized anxiety disorder, bereavement, relationship distress with spouse [place] II: Personality vulnerabilities with angry traits [place] III: Hypercholesterolemia Plan: I am continuing treatment with Effexor XR, BuSpar and Ativan at their current doses. The patient will continue participation in the intensive outpatient groups. I highly recommended that he begin with his on a standard course of marital therapy. During the session I provided 16 minutes of supportive therapy. I will see him again for follow-up.
--- NOTE | 2018-08-01 15:55 | BH.DS ---
Discharge Summary - Demographics Date of Admission:: 07/02/18 Discharge Date: 08/01/18 Presenting Problems at Admission:: Pt presented to [facility] for worsening depression following the anniversary of his son's . Pt also struggling with marital problems which seemed to exasperate his mental health symptoms. Pt endorsed grief over son's , increased anger and irritability, and increased use of alcohol as way of coping with stress and mental health. Pt not functioning at baseline. Discharge Diagnoses:: F33.9 Major Depressive disorder, recurrent, unspecified; generalized anxiety disorder; bereavement; relationship distress with spouse Reason for Discharge:: During time in program pt gained increased insight as to how much his marital problems are impacting his mental health. Pt's main stressor is currently his marital problems so pt is discharging from [facility] to begin couples counseling with his . - Treatment Progress During Treatment & Response: Pt demonstrated progress with increased self-awarenes of how ignoring his emotions and thoughts negatively impact his depressive symptoms. Pt progressed with opening up to his about his feelings about a situation that occured many years ago in their marriage. Pt's main stressor was pt's marital problems as a result progress hindered due to pt's focus being on relationship issues and pt realizing marital counseling would better fit his needs at this time. Pt tended to be quiet in group sessions, at times contributing his thoughts and ideas to discussion. Pt engaged in group activities and listened attentively to peers. Issues Still to be Addressed:: Pt could benefit from marriage counseling to improve relationship with his . Pt also could benefit from increasing utilization of healthy coping skills, challenging distorted thoughts, and improved communciation skills. Discharge Recommendations/Instructions:: 1. Pt to follow up with individual counseling at [facility]. 2. Pt to follow up with psychiatrist at [facility]. 3. Pt states he will contact his individual counselor at [facility] for a referral to a couples counselor at [facility]. Discharge Handout: Complete Discharge Handout with client on aftercare options and continuity of care.
--- NOTE | 2018-08-01 16:24 | BH.DS_ITS ---
Discharge Summary - Demographics Date of Admission:: 07/02/18 Discharge Date: 08/01/18 Presenting Problems at Admission:: Pt presented to [facility] for worsening depression following the anniversary of his son's . Pt also struggling with marital problems which seemed to exasperate his mental health symptoms. Pt endorsed grief over son's , increased anger and irritability, and increased use of alcohol as way of coping with stress and mental health. Pt not functioning at baseline. Discharge Diagnoses:: F33.9 Major Depressive disorder, recurrent, unspecified; generalized anxiety disorder; bereavement; relationship distress with spouse Reason for Discharge:: During time in program pt gained increased insight as to how much his marital problems are impacting his mental health. Pt's main stressor is currently his marital problems so pt is discharging from [facility] to begin couples counseling with his . - Treatment Progress During Treatment & Response: Pt demonstrated progress with increased self-awarenes of how ignoring his emotions and thoughts negatively impact his depressive symptoms. Pt progressed with opening up to his about his feelings about a situation that occured many years ago in their marriage. Pt's main stressor was pt's marital problems as a result progress hindered due to pt's focus being on relationship issues and pt realizing marital counseling would better fit his needs at this time. Pt tended to be quiet in group sessions, at times contributing his thoughts and ideas to discussion. Pt engaged in group activities and listened attentively to peers. Issues Still to be Addressed:: Pt could benefit from marriage counseling to improve relationship with his . Pt also could benefit from increasing utilization of healthy coping skills, challenging distorted thoughts, and improved communciation skills. Discharge Recommendations/Instructions:: 1. Pt to follow up with individual counseling at [facility]. 2. Pt to follow up with psychiatrist at [facility]. 3. Pt states he will contact his individual counselor at [facility] for a referral to a couples counselor at [facility]. Discharge Handout: Complete Discharge Handout with client on aftercare options and continuity of care.
== END 2018-08-01 14:00 | disposition home or self-care (01) ==
LOC: BHIOP 09:00
PROVIDERS: Referring Provider Psychiatry & Neurology Psychiatry; Visit Provider Psychiatry & Neurology Psychiatry
DX: F33.9 Major depressive disorder, recurrent, unspecified (principal); F41.1 Generalized anxiety disorder; Z63.4 Disappearance and death of family member; Z63.0 Problems in relationship with spouse or partner; Z79.899 Other long term (current) drug therapy; E78.00 Pure hypercholesterolemia, unspecified
CPT/HCPCS: H0035; 90832; 90847; 90853

== ENCOUNTER → 2019-03-25 06:08 | Outpatient (CLI) | payer BC, SELFPAY ==
[2019-03-13 15:49] VITALS: BMI 35.3
--- NOTE | 2019-03-25 06:08 | ECHOCS_ITS ---
Reason For Study: CHEST PAIN Procedure This was a 2D Doppler, Color Flow transthoracic echocardiogram. The study was technically difficult. Contrast injection was performed. Exam performed in department. Left Ventricle Based upon the 2D echocardiographic and contrast enhanced images obtained there appears to be grossly normal left ventricular size, wall motion, and systolic function. The estimated ejection fraction is 55 %. Diastolic function is indeterminate. Right Ventricle Normal RV size. Normal systolic function. Atria The left atrium is mildly enlarged. Normal right atrium. No doppler evidence for ASD. Mitral Valve There is no mitral annular calcification. Normal mitral valve. Trivial mitral valve insufficiency. Tricuspid Valve Normal tricuspid valve. Trivial tricuspid valve insufficiency. Right ventricular systolic pressure estimated to be 32 mmHg. Aortic Valve Trisinus/trileaflet aortic valve. Mild diffuse aortic valve calcification. Trivial aortic valve insufficiency. Pulmonic Valve The pulmonic valve is not well visualized. Trivial pulmonic valve insufficiency. Great Vessels Normal sized aortic root. Pericardium/Pleural No pericardial effusion. Medication Diluted definity 3.0ml given slow IV push to enhance endocardial definition. MMode/2D Measurements & Calculations LVIDd: 4.6 cm IVSd: 1.2 cm Ao root diam: 3.2 cm LVIDs: 3.2 cm LVPWd: 1.2 cm RVDd: 4.2 cm FS: 30.3 % LAV(MOD-bp): 79.0 ml EDV(MOD-sp4): 106.0 ml EDV(MOD-sp2): 60.5 ml LAV(MOD-bp) Indexed: 34.6 ml/m2 ESV(MOD-sp4): 43.4 ml EF(MOD-sp2): 55.4 % LAV(MOD-sp2): 80.8 ml EF(MOD-sp4): 59.0 % LAV(MOD-sp4): 77.4 ml SV(MOD-sp4): 62.5 ml SV(MOD-sp2): 33.5 ml LA A4 area: 23.9 cm2 LA dimension(2D): 3.4 cm RA A4 area: 15.9 cm2 Time Measurements MV dec time: 0.20 sec Doppler Measurements & Calculations MV E max louie: 73.3 cm/sec Lat Peak E' Louie: 9.7 cm/sec Med Peak E' Louie: 6.2 cm/sec MV A max louie: 54.6 cm/sec E/E' lat: 7.6 E/E' med: 11.8 MV E/A: 1.3 Ao V2 max: 144.2 cm/sec LV V1 max: 97.6 cm/sec PA V2 max: 81.9 cm/sec Ao max P.3 mmHg LV V1 max P.8 mmHg TR max louie: 270.5 cm/sec TR max P.3 mmHg Interpretation Summary The study was technically difficult. Contrast injection was performed. Based upon the 2D echocardiographic and contrast enhanced images obtained there appears to be grossly normal left ventricular size, wall motion, and systolic function. The estimated ejection fraction is 55 %. The left atrium is mildly enlarged. Trivial mitral valve insufficiency. Trivial tricuspid valve insufficiency. Mild diffuse aortic valve calcification. Trivial aortic valve insufficiency. Trivial pulmonic valve insufficiency. Right ventricular systolic pressure estimated to be 32 mmHg. Diastolic function is indeterminate. Ordering Physician: Cleveland Perez Referring Physician: laverne Ernandez Performed By: Nilsa Buckley, RDCS, RVT
--- NOTE | 2019-03-25 10:55 | STRESSREP ---
Stress Test Report Date: 03-25-2019 Procedure: Exercise tolerance test/imaging study Indications: Chest pain; shortness of breath/dyspnea on exertion Consent: Per the patient Procedure: The patient exercised on a Rob protocol for 10 minutes completing Stage III and 1 minute of Stage IV achieving a peak heart rate of 151 bpm (94 % predicted maximal heart rate) with a peak blood pressure 162/78 mmHg and a peak MET capacity of 11 METs. The baseline ECG demonstrated normal sinus rhythm. The peak exercise ECG demonstrated somatic/motion artifact with no obvious ECG changes. There was a rare PVC during exercise and a rare PAC during recovery. The functional capacity was considered good. There was no complaint of chest discomfort during exercise or recovery. The examination was discontinued secondary to dyspnea. Impression: 1. Technically adequate (percent predicted maximal heart rate greater than 85%) exercise tolerance test 2. Peak exercise ECG with somatic/motion artifact with no obvious ECG changes 3. There was a rare PVC during exercise and a rare PAC during recovery 4. Nuclear images pending Myocardial perfusion imaging study: Technique: The patient was injected with 14.3 mCi of technetium 99m Cardiolite and subsequently rest SPECT Cardiolite nuclear imaging was obtained in the horizontal long, vertical long, and short axis views. The patient exercised on a Rob protocol for 10 minutes completing Stage III and 1 minute of Stage IV achieving a peak heart rate of 151 bpm (94 % predicted maximal heart rate) with a peak blood pressure 162/78 mmHg and a peak MET capacity of 11 METs. The patient was injected with 44.6 mCi of technetium 99m Cardiolite and subsequently stress SPECT Cardiolite nuclear imaging was obtained in the horizontal long, vertical long, and short axis views. A gated Cardiolite study at peak stress was obtained. Interpretation: Rest and stress SPECT Cardiolite nuclear imaging status post realignment, normalization, and attenuation correction, demonstrates the appearance of relative uniform tracer uptake and myocardial perfusion appearing within normal limits. There is end systolic thickening and brightening. The gated Cardiolite study demonstrates myocardial thickening and inward wall motion. The reported LVEF is 67 %. Impression: 1. Rest and stress SPECT Cardiolite nuclear imaging demonstrate relative uniform tracer uptake and myocardial perfusion appearing within normal limits. 2. The gated Cardiolite study reports an LVEF of 67 %. This note was generated with [employer] software. It may contain incorrect words, spelling, and punctuation that were not noted in checking the note before signing.
== END ==
PROVIDERS: Family Provider Family Medicine; PCP Family Medicine; Referring Provider Internal Medicine Cardiovascular Disease; Visit Provider Internal Medicine Cardiovascular Disease
DX: R07.9 Chest pain, unspecified (principal); E78.2 Mixed hyperlipidemia
CPT/HCPCS: 78452; 93017; 93306; A9500; Q9957; A4216; C8929

== ENCOUNTER → 2019-05-06 09:07 | Outpatient (CLI) | payer BC, SELFPAY ==
[2019-04-16 10:45] VITALS: BMI 35.6
[2019-04-24 15:27] VITALS: BMI 35.2
--- NOTE | 2019-05-06 15:26 | PFTCOMP ---
COMPLETE PULMONARY FUNCTION TEST INTERPRETATION Brief HPI: Patient is a 63 year old male, currently under the care of Dr. Powers, who presents to [facility] for complete pulmonary function tests secondary to diagnosis of dyspnea. Respiratory therapist reports good effort and reproducible results. Interpretation: Forced expiration spirometry shows no large airways obstructive ventilatory defect with an FEV1 of 100% predicted. There is no significant bronchodilator response by strict ATS criteria. Spirograms are of good quality and plateau normally. The respiratory flow volume loop shows a normal pattern. Lung volumes by body plethysmography show a normal total lung capacity at 6.35 L, 96% predicted. All other lung volumes are within normal limits. Diffusion capacity by carbon monoxide is normal at 109% predicted. The airway resistance is normal. No previous pulmonary function tests were available for review. Impression: These pulmonary function tests are within normal limits.
== END ==
PROVIDERS: PCP Family Medicine; Referring Provider Family Medicine; Visit Provider Family Medicine
DX: R06.02 Shortness of breath (principal)
CPT/HCPCS: 94060; 94726; 94729

== ENCOUNTER → 2019-05-07 12:15 | Outpatient (CLI) | payer BC, SELFPAY ==
[2019-04-16 10:45] VITALS: BMI 35.6
[2019-04-24 15:27] VITALS: BMI 35.2
[2019-05-07 12:30] VITALS: PULSE 101; PULSE 77; PULSE 83; PULSE 95; PULSE 98; PULSE 99; O2SAT 90; O2SAT 92; O2SAT 93; O2SAT 94; O2SAT 95; O2SAT 96
--- NOTE | 2019-05-07 14:46 | PCM.PSN.6M ---
PSN 6 Minute Walk Test - 6 Minute Walk Test 6 Minute Walk Test: 6 Minute Walk Test PSN:6-Minute Walk Test Start: 05/07/19 12:50 Freq: Status: Active Protocol: RESP.6MINW Document 05/07/19 12:30 [facility] (Rec: 05/07/19 12:56 [facility] [id number]) 6 Minute Walk Test Date Performed 05/07/19 Time Performed 12:30 Height 5 ft 10 in Weight: 108.862 kg Weight in Pounds 240.[address]: Shaheed Powers Assistive device used: None Pre-test Oxygen Delivery Method Room Air Pulse Ox (%) 94 Pulse Rate (60-100 beats/min) 83 Dyspnea Spencer Scale (0-10) 0 Exertion Spencer Scale (6-20) 6 1st minute Oxygen Delivery Method Room Air Pulse Ox (%) 92 Pulse Rate (60-100 beats/min) 99 2nd minute Oxygen Delivery Method Room Air Pulse Ox (%) 90 Pulse Rate (60-100 beats/min) 101 H 3rd minute Oxygen Delivery Method Room Air Pulse Ox (%) 94 Pulse Rate (60-100 beats/min) 101 H 4th minute Oxygen Delivery Method Room Air Pulse Ox (%) 93 Pulse Rate (60-100 beats/min) 98 5th minute Oxygen Delivery Method Room Air Pulse Ox (%) 93 Pulse Rate (60-100 beats/min) 101 H 6th minute Oxygen Delivery Method Room Air Pulse Ox (%) 95 Pulse Rate (60-100 beats/min) 95 Dyspnea Spencer Scale (0-10) 0 Exertion Spencer Scale (6-20) 8 Post-test Oxygen Delivery Method Room Air Pulse Ox (%) 96 Pulse Rate (60-100 beats/min) 77 Full Laps Walked 22 Partial Lap, Number of Tiles Walked 0 Total Distance Walked (ft) 1298 - Interpretation Interpretation: The patient was able to ambulate 1298 feet over the course of 6 minutes on room air with no assistive devices or breaks. The patient did experience significant desaturation from a baseline of 94% to as low as 90% with some reflexive tachycardia. These findings are consistent with a respiratory limitation exercise tolerance. - Recommendations Recommendations: No supplemental oxygen is indicated at this time. However, patient will need to be followed closely given level of desaturation.
== END ==
PROVIDERS: PCP Family Medicine; Referring Provider Family Medicine; Visit Provider Family Medicine
DX: R06.02 Shortness of breath (principal)
CPT/HCPCS: 94618

== ENCOUNTER 2019-06-18 16:30 | Outpatient (RCR) | payer BC, SELFPAY ==
[2019-06-03 09:50] VITALS: BMI 35.6
--- NOTE | 2019-06-11 18:00 | HP.SP.AD_ITS ---
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 Pt reports the following: extreme difficulty with respiration - pato gray inhalation - following instances of lifting heavy objects for the last 5- 6 years. Pt reports being very Type A and is diagnosed with anxiety, depression, and OCD. Pt is medicated for anxiety for the last year and reports improvement in mood, however, still has some anxiety which may be an additional trigger. Pt denies any other triggers (exercise, noxious stimuli, etc...) Symptoms begin suddenly and consist of the feeling of having the air knocked out of his chest/abdomin, stridor with inhalation, and dizziness, with the pt near fainting on many occasions. Symptoms are acute and severe, requiring emergency assistance 2x (pt to ED). During these attacks, the pt reports feeling of panic and extreme anxiety. Attacks last approximately 30 seconds to one minute. Pt has been seen by pulmonology and cardiology who have found pt WNL for age. Pt passed a stress test. Pt has attempted use of an albuterol inhaler with no reported improvement in symptoms so has since discontinued. Pt does see a counselor weekly who is educating on mindfulness technique. Over the last five years, the pt has had a lot of emotional troubling events in his life (divorce and in family, with cancer). Plan - Plan Plan: Skilled therapy is warranted and medically necessary at this time as the pt presents with many severe symptoms consistent with PVFM which may have a significant impact on both his physical and mental health. - Recommendations Treatment Warranted: Yes - Frequency Frequency: 1x/Week Duration: 2 Months - Prognosis Prognosis: Good - Goals that are Established: Determination:: Goals will be added/modified as deemed necessary and appropriate. Therapy will be discontinued when results of re-evaluation indicate therapy is no longer needed or lack of progress has been documented. - Goal #1-5 Goal #1: The patient will increase his knowledge of PVFM by discussing normal an d paradoxical vocal fold motion during breathing to reduce anxiety and improve sense of control with 80% accuracy in 2/3 sessions. Goal #2: The patient will report awareness prior to participating in, or by consciously avoiding, a PVFM trigger in 4/5 opportunities. Goal #3: The patient will learn and report independent use of breathing methods in order to control and ultimately prevent an attack in 4/5 opportunities. Education - Patient Instruction Patient Education: Diagnosis, Treatment Plan, Goals Person Taught: Patient Teaching Method: Discussion, Demonstration Response to teaching: Verbalize understanding
--- NOTE | 2019-06-25 10:57 | HP.SP.DC ---
ST Discharge Summary - Discharged: Discharge: Tien Reaves is discharged from outpatient speech therapy effective 06/25/2019. Tien participated in two therapy sessions following his initial evaluation targeting suspected paradoxical vocal fold malfunction. Tien was provided education on the disorder and demonstrated increased awareness and/or avoidance of triggers as well as independent and successful use of breathing methods to control and/or prevent attacks. The patient reported decreased anxiety regarding his breathing as well as confidence moving forward on his own. Please reconsult as necessary.
== END 2019-06-18 19:00 | disposition home or self-care (01) ==
LOC: SP 16:30
PROVIDERS: PCP Family Medicine; Referring Provider Internal Medicine Critical Care Medicine; Visit Provider Internal Medicine Critical Care Medicine
DX: J38.3 Other diseases of vocal cords (principal)
CPT/HCPCS: 92507; 92524

== ENCOUNTER → 2019-11-20 13:33 | Outpatient (CLI) | payer BC, SELFPAY ==
[2019-06-03 09:50] VITALS: BMI 35.6
== END ==
PROVIDERS: Referring Provider Family Medicine; Visit Provider Family Medicine
DX: Z11.59 Encounter for screening for other viral diseases (principal)
CPT/HCPCS: 87635; U0003

== ENCOUNTER → 2019-12-04 10:42 | Outpatient (CLI) | payer BC, SELFPAY ==
[2019-06-03 09:50] VITALS: BMI 35.6
== END ==
PROVIDERS: Referring Provider Family Medicine; Visit Provider Family Medicine
DX: Z11.59 Encounter for screening for other viral diseases (principal)
CPT/HCPCS: 87635; U0003

== ENCOUNTER → 2019-12-18 12:54 | Outpatient (CLI) | payer BC, SELFPAY ==
[2019-06-03 09:50] VITALS: BMI 35.6
== END ==
PROVIDERS: Referring Provider Family Medicine; Visit Provider Family Medicine
DX: Z03.818 Encounter for observation for suspected exposure to other biological agents ruled out (principal)
CPT/HCPCS: 87635; U0003

== ENCOUNTER → 2020-01-01 10:44 | Outpatient (CLI) | payer BC, SELFPAY ==
[2019-06-03 09:50] VITALS: BMI 35.6
== END ==
PROVIDERS: Referring Provider Family Medicine; Visit Provider Family Medicine
DX: Z03.818 Encounter for observation for suspected exposure to other biological agents ruled out (principal)
CPT/HCPCS: 87635; U0003

== ENCOUNTER → 2020-01-15 13:16 | Outpatient (CLI) | payer BC, SELFPAY ==
[2019-06-03 09:50] VITALS: BMI 35.6
== END ==
PROVIDERS: Referring Provider Family Medicine; Visit Provider Family Medicine
DX: Z03.818 Encounter for observation for suspected exposure to other biological agents ruled out (principal)
CPT/HCPCS: 87635; U0003

== ENCOUNTER → 2020-11-12 12:51 | Outpatient (CLI) | payer BC, SELFPAY ==
--- NOTE | 2020-11-12 12:55 | ECHOCS_ITS ---
Reason For Study: AFIB Procedure This was a 2D Doppler, Color Flow transthoracic echocardiogram. The study was technically difficult. Contrast injection was performed. Exam performed in department. Left Ventricle Normal LV size. Left ventricular systolic function is normal. The estimated ejection fraction is 60 %. No evidence for diastolic dysfunction. No regional wall motion abnormalities noted. Right Ventricle Normal RV size. Normal systolic function. Atria The left atrium is mildly enlarged. Normal right atrium. No doppler evidence for ASD. Mitral Valve There is mild to moderate mitral annular calcification. Extension of the mitral annular calcification onto the posterior mitral valve leaflet. Trivial mitral valve insufficiency. Tricuspid Valve Normal tricuspid valve. Trivial tricuspid valve insufficiency. Right ventricular systolic pressure estimated to be 29 mmHg. Aortic Valve Normal aortic valve. Mild focal aortic valve calcification. Pulmonic Valve The pulmonic valve is not well visualized. Trivial pulmonic valve insufficiency. Great Vessels Normal sized aortic root. Calcified aortic root. Pericardium/Pleural No pericardial effusion. Medication 22 gauge I.V. with prn adaptor inserted into right arm. Diluted definity 6.0ml given slow IV push to enhance endocardial definition. MMode/2D Measurements & Calculations LVIDd: 4.5 cm IVSd: 1.2 cm Ao root diam: 4.2 cm LVIDs: 2.9 cm LVPWd: 1.2 cm RVDd: 3.8 cm FS: 34.7 % LAV(MOD-bp): 58.7 ml LVAd ap4: 40.4 cm2 LVAd ap2: 33.4 cm2 LAV(MOD-bp) Indexed: 25.4 ml/m2 LVLd ap4: 9.8 cm LVLd ap2: 9.2 cm LAV(MOD-sp2): 70.2 ml EDV(MOD-sp4): 138.1 ml EDV(MOD-sp2): 100.9 ml LAV(MOD-sp4): 50.2 ml EDV(sp4-el): 141.2 ml EDV(sp2-el): 102.9 ml LVAs ap4: 25.2 cm2 LVAs ap2: 21.8 cm2 LVLs ap4: 8.3 cm LVLs ap2: 8.2 cm ESV(MOD-sp4): 62.7 ml ESV(MOD-sp2): 48.7 ml ESV(sp4-el): 64.9 ml ESV(sp2-el): 49.1 ml EF(MOD-sp4): 54.6 % EF(MOD-sp2): 51.8 % EF(sp4-el): 54.0 % SV(MOD-sp4): 75.4 ml SV(MOD-sp2): 52.2 ml SV(sp4-el): 76.3 ml LA A4 area: 19.3 cm2 LA dimension(2D): 4.7 cm RA A4 area: 13.6 cm2 Time Measurements MV dec time: 0.22 sec Doppler Measurements & Calculations MV E max louie: 99.7 cm/sec Lat Peak E' Louie: 9.6 cm/sec Med Peak E' Louie: 7.4 cm/sec E/E' lat: 10.4 E/E' med: 13.4 Ao V2 max: 166.9 cm/sec LV V1 max: 101.4 cm/sec PA V2 max: 76.9 cm/sec Ao max P.5 mmHg LV V1 max P.3 mmHg PI end-d louie: 108.0 cm/sec TR max louie: 253.5 cm/sec TR max P.7 mmHg ECHO/Echo Complete W/ Contrast Interpretation Summary The study was technically difficult. Contrast injection was performed. Left ventricular systolic function is normal. The estimated ejection fraction is 60 %. The left atrium is mildly enlarged. There is mild to moderate mitral annular calcification. Extension of the mitral annular calcification onto the posterior mitral valve l eaflet. Trivial mitral valve insufficiency. Trivial tricuspid valve insufficiency. Mild focal aortic valve calcification. Trivial pulmonic valve insufficiency. Calcified aortic root. Right ventricular systolic pressure estimated to be 29 mmHg. No evidence for diastolic dysfunction. Ordering Physician: Cleveland Perez Referring Physician: CAMDEN SCOTT Performed By: Leelee Batista, AMANUELCS, RVT
== END ==
PROVIDERS: PCP Family Medicine; Referring Provider Internal Medicine Cardiovascular Disease; Visit Provider Internal Medicine Cardiovascular Disease
DX: I48.0 Paroxysmal atrial fibrillation (principal)
CPT/HCPCS: 93306; Q9957; A4216; C8929; J3490

== ENCOUNTER → 2020-11-18 13:08 | Outpatient (CLI) | payer BC, SELFPAY | PROVIDERS: PCP Family Medicine; Referring Provider Internal Medicine Cardiovascular Disease; Visit Provider Internal Medicine Cardiovascular Disease | DX: I48.0 Paroxysmal atrial fibrillation (principal) | CPT/HCPCS: 93225; 93226 ==

== ENCOUNTER 2021-07-21 16:53 | Emergency (ER) | payer OTHER, SELFPAY ==
[2021-07-21] VITALS (8 sets, daily range): BP systolic 118–156; BP diastolic 86–98; PULSE 63–81; RESP 15–18; TEMP 35.8; O2SAT 95–98; BMI 41.6
--- NOTE | 2021-07-21 17:05 | CT_ITS ---
We are attempting to reach an attending provider to discuss findings. An addendum with communication details will be sent when the communication is complete. EXAM: CT CHEST, ABDOMEN AND PELVIS WITH INTRAVENOUS CONTRAST CLINICAL INDICATION: trauma fall chest pain TECHNIQUE: Helically acquired images were obtained of the chest, abdomen and pelvis with intravenous contrast. This CT exam was performed using one or more of the following dose reduction techniques: automated exposure control, adjustment of the mA and/or kV according to patient size, and/or use of iterative reconstruction technique. This report was created using [employer] technology. CONTRAST: IV 100mL Isovue-300 RADIATION DOSE: CTDIvol = 35.38 mGy, DLP = 3340.10 mGy-cm COMPARISON: None. FINDINGS: CHEST: LUNGS AND PLEURAL SPACES: Small left pneumothorax which is less than 5% in size. No mass. No pleural effusion or thickening. HEART: There are coronary arterial calcifications. Heart size is normal. No pericardial effusion. MEDIASTINUM: Unremarkable. No mediastinal or hilar adenopathy. Esophagus is unremarkable. No hiatal hernia. THYROID: Unremarkable. No thyroid lesions. ABDOMEN: LIVER: There is diffuse fatty infiltration of the liver. GALLBLADDER AND BILE DUCTS: Unremarkable. No calcified gallstones. No gallbladder distention or wall edema. No intra- or extrahepatic biliary ductal dilation. PANCREAS: Unremarkable. No focal cystic or solid mass. SPLEEN: Calcified splenic granulomas. ADRENALS: Unremarkable. No nodules. KIDNEYS AND URETERS: Unremarkable. Normal renal size and position. No hydronephrosis. STOMACH AND BOWEL: There is an umbilical hernia containing fat. There is no bowel involvement. There is no incarceration. There is no findings suggesting that this is causing a bowel obstruction. There are bilateral inguinal hernias containing fat. There is no bowel involvement. There is no incarceration. There is no findings suggesting that this is causing a bowel obstruction. No focal inflammatory change. PELVIS: APPENDIX: The appendix is visualized and is normal. BLADDER: Unremarkable. REPRODUCTIVE: Unremarkable as visualized. No mass. CHEST, ABDOMEN and PELVIS: INTRAPERITONEAL SPACE: Unremarkable. No ascites or other fluid collection. No free air. BONES/JOINTS: Acute fracture of the left lateral second and third fourth fifth sixth seventh eighth ninth rib. Acute fracture of the left third fourth fifth sixth seventh eighth ninth posterior rib. Lower lobe infiltrates suggest pulmonary contusions. Degenerative findings in the lumbar spine. There is bilateral neural foraminal stenosis at L4-5 and L5-S1. No suspicious lytic or blastic abnormality. SOFT TISSUES: See above. VASCULATURE: There are calcifications of the abdominal aorta. This is consistent for atherosclerotic disease. There is NO abdominal aortic aneurysm. Vascular workup can be obtained based on clinical correlation. No aortic dissection. No obvious central pulmonary embolism although this study was not performed with the pulmonary embolism protocol. LYMPH NODES: Unremarkable. No enlarged lymph nodes. CT/CT Chest, Abd, Pel w/Contrast IMPRESSION: 1. Small left pneumothorax which is less than 5% in size. 2. There is diffuse fatty infiltration of the liver. 3. Acute fracture of the left lateral second and third fourth fifth sixth seventh eighth ninth rib. Acute fracture of the left third fourth fifth sixth seventh eighth ninth posterior rib. Lower lobe infiltrates suggest pulmonary contusions. 4. There is no shift of the mediastinum. CF called and case discussed. Electronically Signed: Gino Abebe MD at 18:50 EDT ,
--- NOTE | 2021-07-21 17:05 | CT_ITS ---
STUDY: CT BRAIN WITHOUT CONTRAST REASON FOR EXAM: Male, 65 years old. Technologist Notes fell approx 1 feet off ladder hitting head, + LOC, chest pain, on Eliquis. head pain head trauma TECHNIQUE: Transaxial CT imaging of the brain was performed without administration of intravenous contrast material. Individualized dose optimization techniques were used for this CT. COMPARISON: None FINDINGS: Normal calvarium. Normal soft tissues. Normal size ventricles and extra-axial spaces for the patient''s age. Normal white matter tracts of the cerebral hemispheres. Normal basal ganglia and thalami. Normal brainstem. Normal cerebellum. There is no intracranial hemorrhage. There are no findings of an acute ischemic infarction. Degenerative changes of the mandibular condyles. ASPECTS 10 CT/Brain/Head without Contrast IMPRESSION: There are no acute intracranial findings. Electronically Signed: Gino Abebe MD at 18:07 EDT ,
--- NOTE | 2021-07-21 17:05 | CT_ITS ---
STUDY: CT Spine Cervical W/O Contrast Injection 07/21/2021 6:17 PM REASON FOR EXAM: Male, 65 years old. NECK PAIN trauma HISTORY: NECK PAIN trauma TECHNIQUE: High resolution transaxial imaging was performed without intravenous administration of contrast material. Sagittal and coronal images were reconstructed. Individualized dose optimization techniques were used for this CT. COMPARISON: None FINDINGS: Normal craniovertebral junction. Normal anterior atlantoaxial articulation. Normal odontoid process. Normal cervical lordosis. Normal vertebral bodies and posterior osseous elements. C2-3: Normal endplates. Normal disc height and morphology. Normal central canal and intervertebral neuroforamina. C3-4: Normal endplates. Normal disc height and morphology. Normal central canal and intervertebral neuroforamina. C4-5: Normal endplates. Normal disc height and morphology. Normal central canal and intervertebral neuroforamina. C5-6: Loss of intervertebral disc height. There is endplate spondylosis of the vertebral body. Normal central canal and intervertebral neuroforamina. There is bilateral facet arthropathy. C6-7: Loss of intervertebral disc height. There is endplate spondylosis of the vertebral body. Normal central canal and intervertebral neuroforamina. There is bilateral facet arthropathy. C7-T1: Loss of intervertebral disc height. There is endplate spondylosis of the vertebral body. Normal central canal and intervertebral neuroforamina. There is bilateral facet arthropathy. Normal visualized soft tissue structures. CT/Spine Cervical without Contras IMPRESSION: (NOT LISTED IN ORDER OF SIGNIFICANCE) Multilevel degenerative changes, as described above. Electronically Signed: Gino Abebe MD at 18:18 EDT ,
--- NOTE | 2021-07-21 17:10 | ED.VIS.FALL ---
HPI HPI - Fall History of Present Illness Chief Complaint: Trauma Informant: patient Occured/Mechanism Occurred: Today and Hours Mechanism/Context: No same level fall Fall from Height (ft): Patient was on a ladder on a porch roof about 12 feet from the ground when Usually ambulates: Without assistance Pain/Injury Pain Location: head, chest and abdomen Current Severity: Moderate Maximum Severity: Moderate Associated Symptoms Associated Symptoms: Positive for Loss of consciousness; Negative for Parasthesias, Weakness, Loss of function and Inability to ambulate Narrative Narrative: 65-year-old male history of AJosefina ortez on [place]. Was on a ladder working on a porch roof about 12 foot near when he lost his balance and fell to the ground. He did have loss of conscious. Hit his head. Complaining of head pain, chest wall pain and abdominal pain. Prior similar symptoms: No Recent Illness/Hospitalization: [facility] Medical History Anxiety Chest pain Mixed hyperlipidemia Paroxysmal atrial fibrillation RBBB SOB (shortness of breath) Home Medications buspirone 15 mg tablet 15 mg PO BID tab 03/13/19 [History Last Taken Unknown] risperidone 0.5 mg tablet 0.5 mg PO QHS PRN 03/13/19 [History Last Taken Unknown] venlafaxine 75 mg capsule,extended release 24 hr 300 mg PO DAILY cap 03/13/19 [History Last Taken Unknown] apixaban 5 mg tablet 5 mg PO BID 10/29/20 [History Last Taken Unknown] hydroxyzine pamoate 100 mg capsule 100 mg PO QHS PRN 10/29/20 [History Last Taken Unknown] rosuvastatin 10 mg tablet 10 mg PO DAILY 10/29/20 [History Last Taken Unknown] metoprolol succinate 50 mg tablet,extended release 24 hr 50 mg PO DAILY #30 tab 11/24/20 [Rx Last Taken Unknown] Allergy/AdvReac Type Severity Reaction Status Date / Time No Known Allergies Allergy Verified 07/21/21 17:07 Family History Father CAD (coronary artery disease) Myocardial infarction Grandfather CAD (coronary artery disease) Myocardial infarction Surgical History History of repair of hiatal hernia History of spinal fusion Social History Smoking Status: Never smoker alcohol intake: current details: occasional substance use type: does not use caffeine: Yes Type: coffee Number of servings: 1 ROS ROS ED ROS Narrative Denies recent illness. Review of Systems ROS Unobtainable: Denies due to encephalopathy Constitutional Constitutional ED: Denies fever(s) Eyes Eyes: Denies change in vision ENT ENT ED: Denies ear pain Cardiovascular Cardiovascular: Denies chest pain Respiratory/Chest Respiratory/Chest: Denies cough or dyspnea Gastrointestinal Gastrointestinal: Reports abdominal pain; Denies diarrhea, nausea or vomiting Genitourinary Genitourinary ED: Denies dysuria Musculoskeletal Musculoskeletal: Denies myalgias Integumentary Denies rash Neurologic Neurologic: Reports headache(s) Psychiatric Psychiatric: Denies depression Endocrine Endocrinology: Denies polyuria Hematologic/Lymphatic Hematologic/Lymphatic: Denies easy bruising Allergic/Immunologic Allergic/Immunologic ED: Denies urticaria EXAM Physical Exam Narrative Exam Narrative: 65-year-old male trauma patient. Backboard and c-collar. Patient is awake and alert. Initial vital signs are stable. On 3 L nasal cannula his pulse ox is 98% no hypoxia. H EENT exam. Legs motions are intact. He has abrasions and contusions to his face worse on the left than the right. C-spine is immobilized. Trachea midline. Lungs clear to auscultation bilaterally. Heart regular rhythm rate about 70 no murmur. He does have chest wall tenderness with abrasions and contusions on his left chest wall and rib cage. No crepitus. No subcu air. Abdomen is soft. He is tender on the left we also has a contusion and abrasion. Pelvic girdle intact. He is moving all 4 extremities. Nontender. No deformity. 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 Dorsi and plantar flexion intact. Both hips, knees and ankles are nontender. Neurologically he is awake and alert. He is answering questions and following commands. Currently has a GCS of 15. Const Vital Signs: 07/21/21 17:00 07/21/21 17:07 07/21/21 17:15 Temperature 96.4 F L Temperature Source Temporal Pulse Rate 68 65 Respiratory Rate 16 16 Respiratory Effort Normal Non-Labored Respiratory Depth Normal Respiratory Pattern Normal Blood Pressure 147/89 H 134/98 H Blood Pressure Mean 108 110 Pulse Ox 98 98 Oxygen Delivery Method Nasal Cannula Nasal Cannula Nasal Cannula Oxygen Flow Rate (L/min) 3 3 3 07/21/21 17:30 07/21/21 17:45 07/21/21 18:00 Temperature Temperature Source Pulse Rate 69 68 80 Respiratory Rate 16 18 16 Respiratory Effort Respiratory Depth Respiratory Pattern Blood Pressure 139/94 H 150/98 H 156/86 H Blood Pressure Mean 109 115 109 Pulse Ox 97 95 98 Oxygen Delivery Method Nasal Cannula Nasal Cannula Nasal Cannula Oxygen Flow Rate (L/min) 3 3 3 07/21/21 18:15 07/21/21 18:30 Temperature Temperature Source Pulse Rate 79 81 Respiratory Rate 15 18 Respiratory Effort Respiratory Depth Respiratory Pattern Blood Pressure 152/92 H 118/86 H Blood Pressure Mean 112 96 Pulse Ox 97 96 Oxygen Delivery Method Nasal Cannula Nasal Cannula Oxygen Flow Rate (L/min) 3 3 Positive well nourished, well developed and obese; Negative for cachectic, contractures or unkempt General Appearance ED: well developed; Negative for unkempt, cachectic, contractures or NAD Nutritional Appearance: obese; Negative for cachectic HEENT Reports normocephalic trauma, contusion and tenderness; Negative for atraumatic Eyes PERRL and EOMs intact bilaterally General Eye ED: Negative for pale conjunctiva or scleral icterus Neck No full ROM, no lymphadenopathy and supple Neck Narrative: C-collar in place. Chest Wall Negative for inspection of chest normal or palpation of chest normal Chest Narrative: Abrasions and contusions to his chest wall more so on the left. Tenderness. Resp normal respiratory effort, no retractions and clear to auscultation bilaterally Auscultation: Negative for rales, rhonchi or wheezes Cardio regular rate, regular rhythm, S1 normal heart sound, S2 normal heart sound and no murmurs GI non-distended and no masses; Negative for non-tender Auscultation: normoactive bowel sounds Palpation: soft; Negative for guarding Back/Spine Back/Spine Narrative: Currently has backboard and c-collar. I did not do a back exam as of yet. Extremity normal to inspection, full ROM, no calf tenderness and no pedal edema Extremity Narrative: Upper and lower extremities are nontender. Normal predictive maintenance technician strength. Normal dorsi plantar flexion. Neuro oriented x3, moves all extremities and no focal motor deficits Neuro Narrative: GCS of 15. [place] Coma Scale: document GCS findings Spontaneous Obeys Commands Oriented 15 Sensorium / Orientation: alert, oriented to person, oriented to place and oriented to time; Negative for orientation impaired, confused, lethargic or stuporous Psych Appearance: Negative for unkempt Skin Lesions: no lesions and No lesion noted Rashes: no rashes and No rashes noted Trauma: abrasion MDM MDM MDM Narrative Medical decision making narrative: 65-year-old male significant trauma on a ladder on a roof fell to the ground on [facility]. Lab work and CAT scans are being obtained. He will be given fentanyl IV for pain and Zofran for nausea. I am significantly concerned due to the patient's trauma being on Eliquis that he may have a significant injury. Multiple repeat exams the patient is stable. He is awake and alert. I discussed initial test results with he and his family. Were awaiting the formal radiology interpretation of the CAT scans. He has been given a first dose of fentanyl for pain and he was given a second dose of the second dose of Zofran. He will be transferred to a level 1 trauma center to be observed overnight. CAT scan of the chest showed rib fractures on the left second rib through the ninth. Some had multiple fractures. Also small pneumothorax. I discussed that with the family. Will be transferred to a trauma center. We are attempting to contact [facility]. Patient was removed on his right side. His thoracic and lumbar spine are nontender. He was taken off the backboard. C-collar remained in place. Awaiting ambulance transfer to a [facility] [place]. Lab Data Attestation: I reviewed the patient's lab results. Lab results narrative: CBC normal white count of 10. H&H 16 and 46. PT, INR and PTT unremarkable. Electrolytes unremarkable gap 11. His BUN is elevated 25 creatinine was abnormal 1.56. Liver enzymes AST of 49 ALT of 89. Alk phos is normal. As is his total bilirubin. I reviewed his initial CAT scans of his head, neck, chest, abdomen and pelvis. Awaiting formal radiology interpretation. Alcohol was negative. Labs: Laboratory Results - last 24 hr 07/21/21 07/21/21 07/21/21 16:35 16:35 16:35 WBC 10.0 RBC 5.45 Hgb 16.1 Hct 46.5 MCV 85.3 MCH 29.5 MCHC 34.6 RDW Std Deviation 38.4 RDW Coeff of Yolanda 12.6 Plt Count 315 MPV 8.9 PT 13.7 INR 1.1 APTT 25.9 Sodium 142 Potassium 4.0 Chloride 106 Carbon Dioxide 25.0 Anion Gap 11 BUN 25 H Creatinine 1.56 H Estim Creat Clear Calc 50.04 Est GFR (MDRD) Af Amer 58 L Est GFR (MDRD) Non-Af 48 L BUN/Creatinine Ratio 16.0 Glucose 126 H Calcium 9.6 Total Bilirubin 0.50 AST 49 H ALT 89 H Alkaline Phosphatase 74 Total Protein 7.4 Albumin 4.1 Globulin 3.3 Albumin/Globulin Ratio 1.2 Ethyl Alcohol 07/21/21 17:45 WBC RBC Hgb Hct MCV MCH MCHC RDW Std Deviation RDW Coeff of Yolanda Plt Count MPV PT INR APTT Sodium Potassium Chloride Carbon Dioxide Anion Gap BUN Creatinine Estim Creat Clear Calc Est GFR (MDRD) Af Amer Est GFR (MDRD) Non-Af BUN/Creatinine Ratio Glucose Calcium Total Bilirubin AST ALT Alkaline Phosphatase Total Protein Albumin Globulin Albumin/Globulin Ratio Ethyl Alcohol 6.0 Radiography Diagnostic Testing: Clinical Impression(s) from Imaging Studies Brain CT 07/21/21 17:05 IMPRESSION: There are no acute intracranial findings. Electronically Signed: Gino Abebe MD at 18:07 EDT , Cervical Spine CT 07/21/21 17:05 IMPRESSION: (NOT LISTED IN ORDER OF SIGNIFICANCE) Multilevel degenerative changes, as described above. Electronically Signed: Gino Abebe MD at 18:18 EDT , Chest/Abdomen/Pelvis CT 07/21/21 17:05 IMPRESSION: 1. Small left pneumothorax which is less than 5% in size. 2. There is diffuse fatty infiltration of the liver. 3. Acute fracture of the left lateral second and third fourth fifth sixth seventh eighth ninth rib. Acute fracture of the left third fourth fifth sixth seventh eighth ninth posterior rib. Lower lobe infiltrates suggest pulmonary contusions. 4. There is no shift of the mediastinum. CF called and case discussed. Electronically Signed: Gino Abebe MD at 18:50 EDT , ADDENDUM: 07/21/21 1910 IMPRESSION: 1. Small left pneumothorax which is less than 5% in size. 2. There is diffuse fatty infiltration of the liver. 3. Acute fracture of the left lateral second and third fourth fifth sixth seventh eighth ninth rib. Acute fracture of the left third fourth fifth sixth seventh eighth ninth posterior rib. Lower lobe infiltrates suggest pulmonary contusions. 4. There is no shift of the mediastinum. CF called and case discussed. N.B. : The above Results were Read Back by Gino Abebe MD to David Ardon MD, and understanding confirmed on 07/21/2021 19:03:28 (ET). Electronically Signed: Gino Abebe MD at 18:50 EDT , Rhythm Strip Rhythm Strip: Sinus Rhythm Rate: 88 Ectopy: None EKG Initial EKG: Attestation: I personally reviewed and interpreted this EKG as follows: Interpretation: Sinus Rhythm and No Acute Injury Pattern Comments: Sinus rhythm rate of 88 no acute signs of [place] nor ischemia. Critical Care Time Critical care time (excluding procedures): 30-74 minutes, Discussing w/Patient &/or Family/[place], Discussing w/Consultants, Arranging Admission or Transfer, Performing Direct Patient Care at Bedside and - (35 min) Discharge Plan Triage Chief Complaint: Trauma ED Provider: Jake Ardon Dx/Rx/DC Orders Clinical Impression: Fall from height of greater than 3 feet, Closed head injury, Contusion of face, Chest wall contusion, Abdominal wall contusion, History of atrial fibrillation, Chronic anticoagulation, Multiple fractures of ribs, Pneumothorax on left Prescriptions: No Action buspirone 15 mg tablet 15 mg PO BID RF: 0 risperidone 0.5 mg tablet 0.5 mg PO QHS PRN (Reason: Anxiety) RF: 0 hydroxyzine pamoate 100 mg capsule 100 mg PO QHS PRN (Reason: Sleep) RF: 0 venlafaxine [Effexor XR] 75 mg capsule,extended release 24hr 300 mg PO DAILY RF: 0 rosuvastatin 10 mg tablet 10 mg PO DAILY RF: 0 Eliquis 5 mg tablet 5 mg PO BID RF: 0 metoprolol succinate 50 mg tablet extended release 24 hr 50 mg PO DAILY Qty: 30 RF: 12 Primary Care Provider: Ravinder Ernandez Referrals: Ravinder Ernandez MD [Primary Care Provider] - Disposition Disposition: Acute Care Hospital
[2021-07-21] MEDS: Ondansetron 4 MG/2 ML Vial IV ×2 (17:17→18:06)
[2021-07-21] MEDS: 0.9% Normal Saline 1,000 ML 1000 ML IV (17:17)
[2021-07-21 17:18] LABS: Hematocrit 46.5 % (40-54); Hemoglobin 16.1 g/dL (13.0-16.5); Mean Corp Hgb Conc 34.6 g/dL (32-36); Mean Corpuscular Hgb 29.5 pg (27.0-32.0); Mean Corpuscular Volume 85.3 fL (80-94); Mean Platelet Vol. 8.9 fl (6.2-12.0); Platelet Count 315 K/mm3 (150-450); RBC Distribution Width CV 12.6 % (11.6-14.6); RBC Distribution Width SD 38.4 fl (35.1-43.9); Red Blood Count 5.45 M/mm3 (4.6-6.2)
[2021-07-21] MEDS: fentaNYL 100 MCG/2 ML Ampul 50 MCG IV ×3 (17:18→19:24)
[2021-07-21 17:26] LABS: International Normalized Ratio 1.1; Prothrombin Time (Protime)PT. 13.7 SECONDS (11.7-14.9)
[2021-07-21 17:27] LABS: Partial Thromboplast Time 25.9 Seconds (24.1-36.2)
[2021-07-21 17:37] LABS: ALB/GLOB Ratio 1.2 RATIO (0.9-2.4); AST(SGOT) 49 U/L (15-37); Alanine Aminotransfer ALT/SGPT 89 U/L (16-61); Albumin, Serum 4.1 g/dL (3.2-5.0); Alkaline Phosphatase 74 U/L (45-117); Anion Gap 11 (5-15); BUN 25 mg/dL (7-18); Calcium,Total 9.6 mg/dL (8.5-10.1); Chloride 106 mmol/L (98-107); Creatinine, Serum 1.56 mg/dL (0.70-1.30); EST Glomerular Filtration Rate 48 mL/min (>60); Est Glom Filt Rate - Afr Amer 58 mL/min (>60); Estimated Creatinine Clearance 50.04 ml/min; Globulin 3.3 g/dL (2.2-4.2); Glucose 126 mg/dL (74-106); Protein, Total 7.4 g/dL (6.4-8.2); Sodium Level 142 mmol/L (136-145)
--- NOTE | 2021-07-21 17:58 | EKG12_ITS ---
Test Reason : FALL Blood Pressure : / mmHG Vent. Rate : 088 BPM Atrial Rate : 053 BPM P-R Int : 168 ms QRS Dur : 086 ms QT Int : 422 ms P-R-T Axes : 050 066 048 degrees QTc Int : 510 ms Sinus bradycardia with marked sinus arrhythmia Prolonged QT Abnormal ECG Confirmed by KRYSTEN DYER, FINA ([id number]), loan expeditor NATALIE LINARES ([id number]) on 07/25/2021 9:56:38 AM Referred By: JAVIER Confirmed By:EASTON BASHIR MD
== END 2021-07-21 20:38 | disposition short-term general hospital (02) ==
PROVIDERS: Emergency Provider Emergency Medicine; PCP Family Medicine; Visit Provider Emergency Medicine
DX: S30.1XXA Contusion of abdominal wall, initial encounter (principal); I48.0 Paroxysmal atrial fibrillation; Y99.0 Civilian activity done for income or pay; W11.XXXA Fall on and from ladder, initial encounter; E78.2 Mixed hyperlipidemia; S00.83XA Contusion of other part of head, initial encounter; S27.0XXA Traumatic pneumothorax, initial encounter; S22.32XA Fracture of one rib, left side, initial encounter for closed fracture; S20.20XA Contusion of thorax, unspecified, initial encounter; R11.0 Nausea; Z79.01 Long term (current) use of anticoagulants; F41.9 Anxiety disorder, unspecified; Z79.899 Other long term (current) drug therapy
CPT/HCPCS: 70450; 71260; 72125; 74177; 80053; 82077; 85027; 85610; 85730; 93005; 96361; 96374; 96375; 96376; 99285; J7030; Q9967; A4216; J2405

== ENCOUNTER 2021-09-19 08:30 | Outpatient (RCR) | payer OTHER, SELFPAY ==
--- NOTE | 2021-08-17 09:54 | HP.PTEVAL ---
Patient's Visit Information NOE ALEXADNRE is a 65 year old M referred to Physical Therapy by Dr. Ravinder Ernandez MD with a diagnosis of L shoulder pain. Date of Evaluation: 08/17/21 Physical Therapist: Miguel Cesar, DPT, OCS, CSCS - Visit Plan Frequency: 3x /Week Duration: 4-6 Weeks Plan: 3x/week for 2-4 weeks for. 1. manual and AAROM to aROM L shoulder. 2. Strength RC L and postural muscles. 3. US, TENS, ice if needed. Pt to contact doctor paulino regarding RCT for next step(MRI, ORtho)(pt will not get in a tube for MRI he says) - Subjective Fell off a roof and busted 8 ribs and got steel plate and frozen L shoulder. Fall was 3 weeks ago. Shoulder does Not hurt but it is hard to move. It hurts to have it moved though. swims with it every day and can move it around, out of the water it will not move. Ribs are still painful. X rays done. No MRI yet and he will not do it. Sleep is fine. 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 Does nto do a lot of physical stuff due to rib pain. Hard to breathe with ribs. Basic ADLs done just slow. No hobbies, just works. 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 HEP for shoulder, washcloth across table, pendulum, ext rotation isometric. - Pain L shouldr pain Pain Intensity (Out of 10): 0 Pain Intensity Range: 0, 8 Comment: transient with movement. - Objective Pt moves I with gait and trasnfers although hesitant with rib pain. Posture is forward head and kyphosis in T/S. Tender to touch over supraspinatus and generally in upper shoulder. Cervical aROM is full and painfree, scapular motion is good and painfree. elbow and wrist and finger AROM WNL and painfree. R shoulder movement WNL. 70 L elevation limiited by pain in LLA and unable in SLA. ext rotation aROM 75 and IR slow but able to L5. reflexes 2/3 bi and tri. Sensation UE WNL to gross light touch. Strength is 3 in ext rotation 4 in IR, not much pain just weak. 3- in elevation. Strength elbow and wrist 5/5. + L drop arm test.- apprehension, + HK L and + neer. - Balance/Special Test Scores Quick DASH Score: 65.9075 - Goals Goal 1:: Full aROM of L shoulder without pain or hesitation Goal Time Frame: 2-4 Weeks Goal 2:: Pt feel shoulder function is back to 90% normal. Goal Time Frame: 2-4 Weeks Goal 3:: QuickDash score 15 or better. Goal Time Frame: 2-4 Weeks Goal 4:: I management of condition Goal Time Frame: 2-4 Weeks - Rehabilitation Potential Physical Therapy Diagnosis: Likely Rotator cuff pathology Rehabilitation Potential: Questionable - Anticipated Interventions Patient/Client Instruction: Educate patient on: Condition, Plan of Care For the Purpose of:: To decrease pain, To increase ROM, To improve muscle performance and motor function, To increase tolerance to activity/condition/position Therapeutic Exercise to Include: Strength training, Postural training, Flexibilty training For the Purpose of:: To decrease pain, To increase ROM, To improve muscle performance and motor function, To increase tolerance to activity/condition/position Manual Therapy Techniques to Include: Mobilization, Soft tissue mobilization For the Purpose of:: To improve muscle performance and motor function, To increase tolerance to activity/condition/position TENS: Yes Cryotherapy (ice pack, ice massage): Yes For the Purpose of:: To decrease pain, To decrease swelling/inflammation, To increase ROM, To improve muscle performance and motor function Thank you for the opportunity to evaluate your patient. For Medicare and Medicare HMO plans, please review the plan of care and approve it. It will need to be FAXED BACK to us at [phone] for Medicare purposes. For Medicare only, by signing this I certify the plan of care. Please let me know if there are questions or concerns regarding this plan of care. Physician Signature: Date:
--- NOTE | 2021-09-19 08:56 | HP.PTDCSUM ---
It has been my pleasure to treat NOE ALEXANDRE referred by Dr. Ravinder Ernandez MD, with the diagnosis of L shoulder pain for a total of 11 visit(s). Discharge Date: 09/19/21 Please see the following information for a summary of their discharge status. Subjective: Getting better. Saw doctor last week adn did not have any other options. Does not want injection.Pain in the last week up to 3/10, 0/10 at rest. 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 Worked 9 hours Sunday. Putting belt on is doable but painful posteriorly. Does get clicking and grinding sometimes. L shouldr pain Pain Intensity (Out of 10): 3 % Improvement: 75 Objective/Function: Full aROM just stiffer on L in elevation. Weakness persists L external rotation at 3+ but good ROM and improved form initial day. 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 Goal 1:: Full aROM of L shoulder without pain or hesitation Goal Progress: Progressing Goal 2:: Pt feel shoulder function is back to 90% normal. Goal Progress: 75% Goal 3:: QuickDash score 15 or better. Goal Progress: Progressing Goal 4:: I management of condition Goal Progress: Goal Met Plan: d/c to gym 3x/week and HEP daily. If there are questions or concerns regarding this patient's physical therapy, please feel free to call me at [phone]. Thank you for the referral of this patient. Sincerely, Miguel Cesar, DPT, OCS, CSCS Balance/Gait/Functional tests - Balance/Special Test Scores Quick DASH Score: 31.8175
== END 2021-09-19 19:00 | disposition home or self-care (01) ==
LOC: PT 08:30
PROVIDERS: PCP Family Medicine; Referring Provider Family Medicine; Visit Provider Family Medicine
DX: S22.39XD Fracture of one rib, unspecified side, subsequent encounter for fracture with routine healing (principal); X58.XXXD Exposure to other specified factors, subsequent encounter; M25.512 Pain in left shoulder
CPT/HCPCS: 97110; 97140; 97161; 97164

== ENCOUNTER 2023-01-23 15:48 | Emergency (ER) | payer OTHER, SELFPAY ==
[2023-01-23 15:49] VITALS: BP 123/85; PULSE 76; RESP 18; TEMP 36.2; O2SAT 99; BMI 36.6
[2023-01-23 15:54] VITALS: O2SAT 98
--- NOTE | 2023-01-23 16:13 | RAD_ITS ---
INDICATION: chest pain EXAMINATION/TECHNIQUE: X-RAY - XR Chest 1 View COMPARISON: None. FINDINGS: The lungs are clear. Tortuous and calcified thoracic aorta. The heart is mildly enlarged. No pleural effusion or pneumothorax. Degenerative changes of the thoracic spine. Multiple chronic left-sided rib fractures. RAD/Chest 1 View (Portable) IMPRESSION: No acute radiographic abnormalities. Electronically Signed: Howard Espinal MD at 16:37 EST ,
[2023-01-23 16:39] LABS: Absolute Lymphocyte Count 3.28 X10^3/uL (0.83-4.51); Absolute Neutrophil Count 4.1 X10^3/uL (2.0-7.7); Basophil# 0.03 X10^3/uL; Basophil% 0.4 % (0-1); Eosinophil# 0.19 X10^3/uL; Eosinophils% 2.3 % (0-5); Hematocrit 45.1 % (40-54); Hemoglobin 14.9 g/dL (13.0-16.5); Lymphocyte # 3.28 X10^3/ul (0.83-4.51); Mean Corpuscular Hgb 28.9 pg (27.0-32.0); Mean Corpuscular Volume 87.4 fL (80-94); Mean Platelet Vol. 8.5 fl (6.2-12.0); Monocyte# 0.59 X10^3/uL; Monocyte% 7.2 % (0-10); NRBC Flagged by Analyzer 0 % (0-5); Neutrophil % 49.9 % (47-70); Platelet Count 272 K/mm3 (150-450); RBC Distribution Width CV 12.9 % (11.6-14.6); Red Blood Count 5.16 M/mm3 (4.6-6.2); White Blood Count 8.2 K/mm3 (4.4-11.0)
--- NOTE | 2023-01-23 16:51 | EX.ED.DYSGE1 ---
HPI History of Present Illness Chief Complaint: Syncope Informant: patient Onset/Context/Timing Onset: Today Context: Sudden Onset Timing: Intermittent Quality: Lightheaded, nauseated Location: Generalized Worsened by: Standing, exertion Relieved by: Rest Narrative Narrative: Patient presents with near syncopal episode that occurred today. He states he felt lightheaded and nauseated. Patient states this came on after he was doing some exertional activity and then stood up quickly. Patient states he had to sit down and his symptoms improved. Patient states that over the past few days he has had some dyspnea with exertion. Patient states he has a history of paroxysmal atrial fibrillation and thinks he may be back in again. Patient denies any palpitations. Patient states he does not normally feel whenever he goes in and out of atrial fibrillation. Patient does admit to some intermittent pain in his chest. Patient denies any fevers or chills. [facility] Medical History Anxiety Chest pain Mixed hyperlipidemia Paroxysmal atrial fibrillation RBBB SOB (shortness of breath) Home Medications buspirone 15 mg tablet 15 mg PO BID 03/13/19 [History Last Taken Unknown] venlafaxine 75 mg capsule,extended release 24 hr (Effexor XR) 300 mg PO DAILY 03/13/19 [History Last Taken Unknown] apixaban 5 mg tablet (Eliquis) 5 mg PO BID 10/29/20 [History Last Taken Unknown] hydroxyzine pamoate 100 mg capsule 100 mg PO QHS PRN Sleep 10/29/20 [History Last Taken Unknown] rosuvastatin 10 mg tablet 10 mg PO DAILY 10/29/20 [History Last Taken Unknown] metoprolol succinate 50 mg tablet,extended release 24 hr 50 mg PO DAILY #30 tabs 04/20/22 [Rx Last Taken Unknown] Allergy/AdvReac Type Severity Reaction Status Date / Time No Known Allergies Allergy Verified 01/23/23 15:49 Family History Father CAD (coronary artery disease) Myocardial infarction Grandfather CAD (coronary artery disease) Myocardial infarction Surgical History History of repair of hiatal hernia History of spinal fusion Social History Smoking Status: Never smoker alcohol intake: current details: occasional substance use type: does not use caffeine: Yes Type: coffee Number of servings: 1 ROS ROS ED Constitutional Constitutional ED: Denies chills or fever(s) Eyes Eyes: Denies blurry vision or change in vision ENT ENT ED: Denies rhinorrhea or sore throat Cardiovascular Cardiovascular: Reports chest pain; Denies palpitations Respiratory/Chest Respiratory/Chest: Denies cough or dyspnea Gastrointestinal Gastrointestinal: Denies nausea or vomiting Genitourinary Genitourinary ED: Denies dysuria or hematuria Musculoskeletal Musculoskeletal: Reports back pain; Denies neck pain Integumentary Denies abscess or rash Neurologic Neurologic: Denies headache(s) or weakness Allergic/Immunologic Allergic/Immunologic ED: Denies mouth swelling or urticaria EXAM Physical Exam Const Vital Signs: 01/23/23 15:49 01/23/23 15:54 01/23/23 15:54 Temperature 97.1 F L Temperature Source Temporal Pulse Rate 76 Respiratory Rate 18 Respiratory Effort Normal Non-Labored Respiratory Pattern Normal Blood Pressure 123/85 H Blood Pressure Mean 97 Pulse Ox 99 98 Oxygen Delivery Method Room Air Room Air 01/23/23 17:01 Temperature Temperature Source Pulse Rate 78 Respiratory Rate 12 Respiratory Effort Respiratory Pattern Blood Pressure 112/71 Blood Pressure Mean 84 Pulse Ox 97 Oxygen Delivery Method Room Air Positive well nourished and well developed General Appearance ED: well developed and NAD HEENT Reports moist mucous membranes Neck supple and no JVD Chest Wall inspection of chest normal and palpation of chest normal Resp normal respiratory effort and clear to auscultation bilaterally Cardio Rhythm: abnormal rhythm irregularly irregular GI non-tender and non-distended Palpation: soft Neuro oriented x3, CN's II-XII intact bilaterally and no sensory deficits noted Sensorium / Orientation: alert Motor Exam: strength 5/5 throughout Psych mental status grossly normal MDM MDM MDM Narrative Medical decision making narrative: Differential diagnosis includes cardiac dysrhythmia, cardiac ischemia, congestive heart failure, electrolyte abnormality, pneumonia, dehydration, and orthostatic hypotension. EKG will be obtained to assess for cardiac dysrhythmia and cardiac ischemia. Chest x-ray will be obtained to assess for congestive heart failure and pneumonia. CBC will be obtained to assess for leukocytosis and anemia. Basic metabolic profile will be obtained to assess for electrolyte abnormality and renal function. High-sensitivity troponin will be obtained to assess for cardiac ischemia. Lab Data Attestation: I reviewed the patient's lab results. Lab results narrative: CBC was reviewed and was within normal limits. Basic metabolic profile was reviewed and was essentially within normal limits. High-sensitivity troponin was reviewed and was normal at 9. 2-hour repeat high-sensitivity troponin was reviewed and was normal at 7. Labs: Laboratory Results - last 24 hr 01/23/23 01/23/23 16:30 18:30 WBC 8.2 RBC 5.16 Hgb 14.9 Hct 45.1 MCV 87.4 MCH 28.9 MCHC 33.0 RDW Std Deviation 41.0 RDW Coeff of Yolanda 12.9 Plt Count 272 MPV 8.5 Immature Gran % (Auto) 0.200 Neut % (Auto) 49.9 Lymph % (Auto) 40.0 [place] % (Auto) 7.2 Eos % (Auto) 2.3 Baso % (Auto) 0.4 Absolute Neuts (auto) 4.1 Absolute Lymphs (auto) 3.28 Nucleated RBC % 0 Sodium 139 Potassium 4.5 Chloride 107 Carbon Dioxide 30.0 Anion Gap 2 L BUN 19 H Creatinine 1.03 Estim Creat Clear Calc 73.83 Est GFR (MDRD) Af Amer 93 Est GFR (MDRD) Non-Af 77 BUN/Creatinine Ratio 18.4 Glucose 111 H Calcium 9.1 Troponin I High Sens 9 7 Radiography Diagnostic Testing: Clinical Impression(s) from Imaging Studies Chest X-Ray 01/23/23 16:13 IMPRESSION: No acute radiographic abnormalities. Electronically Signed: Howard Espinal MD at 16:37 EST , Portable 1 view chest x-ray was obtained. On my independent interpretation, lung novoa are clear. There is normal cardiac silhouette. Bony thorax is normal. There is no acute process noted. Radiologist also interpreted the x-ray and agrees. EKG Initial EKG: Attestation: I personally reviewed and interpreted this EKG as follows: Interpretation: No Acute Injury Pattern and Atrial Fibrillation (85) Comments: EKG was obtained. On my independent interpretation, it shows atrial fibrillation with a rate of 85. QRS interval was normal, QTc interval was normal. [place] was normal. There are no ST or T wave changes noted. Prior EKG tracings: available for review Prior: Unchanged (07/21/2021) Treatment and Re-Evaluation :: Patient is feeling better on reevaluation. Patient was advised of his findings. Patient states that they normally let him convert back to a sinus rhythm on his own. Patient states he has not been cardioverted in the past. Patient does not want cardioversion at this time. Patient is hemodynamically stable. Heart rate is controlled. Patient was instructed to continue his Eliquis as prescribed. Patient was instructed to get plenty of rest. Patient was instructed to follow-up with his primary care physician in 3 to 5 days. 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 Patient understood and was agreeable with the plan. All questions were answered. Discharge Plan Triage Chief Complaint: Syncope ED Provider: Miguel Sierra Dx/Rx/DC Orders Clinical Impression: Near syncope, PAF (paroxysmal atrial fibrillation) Instructions: ED AFIB, ED Near-Fainting, Uncertain Cause Prescriptions: No Action buspirone 15 mg tablet 15 mg PO BID hydroxyzine pamoate 100 mg capsule 100 mg PO QHS PRN (Reason: Sleep) venlafaxine [Effexor XR] 75 mg capsule,extended release 24hr 300 mg PO DAILY rosuvastatin 10 mg tablet 10 mg PO DAILY Eliquis 5 mg tablet 5 mg PO BID metoprolol succinate 50 mg tablet extended release 24 hr 50 mg PO DAILY Qty: 30 12RF Primary Care Provider: Care Physician,No Primary Referrals: Ravinder Ernandez MD [Non-Staff] - 3-5 Days Shukri Olson MD [Med Staff - Active Staff] - 5-7 Days Disposition Disposition: Home, Self Care
[2023-01-23 16:57] LABS: Anion Gap 2 (5-15); BUN 19 mg/dL (7-18); BUN/Creat Ratio 18.4 RATIO (10-20); Calcium,Total 9.1 mg/dL (8.5-10.1); Chloride 107 mmol/L (98-107); Creatinine, Serum 1.03 mg/dL (0.70-1.30); EST Glomerular Filtration Rate 77 mL/min (>60); Est Glom Filt Rate - Afr Amer 93 mL/min (>60); Estimated Creatinine Clearance 73.83 ml/min; Glucose 111 mg/dL (74-106); Potassium 4.5 mmol/L (3.5-5.1); Sodium Level 139 mmol/L (136-145); Troponin-I HS (w/2H Reflex) 9 pg/mL (3.0-78.0)
[2023-01-23 17:01] VITALS: BP 112/71; PULSE 78; RESP 12; O2SAT 97
[2023-01-23 18:36] LABS: Reflex Troponin-HS? (from REC) Y
[2023-01-23 18:53] LABS: Troponin-I HS 7 pg/mL (3.0-78.0)
[2023-01-23 19:31] VITALS: BP 119/95; PULSE 71; RESP 16; O2SAT 99
== END 2023-01-23 19:35 | disposition home or self-care (01) ==
PROVIDERS: Emergency Provider Emergency Medicine; Visit Provider Emergency Medicine
DX: R55 Syncope and collapse (principal); I48.0 Paroxysmal atrial fibrillation
CPT/HCPCS: 71045; 80048; 84484; 85025; 93005; 99283; A4216

== ENCOUNTER 2023-02-13 16:55 | Emergency (ER) | payer OTHER, SELFPAY ==
[2023-02-13 16:55] VITALS: BP 144/77; PULSE 81; RESP 18; TEMP 36.6; O2SAT 99; BMI 37.5
--- NOTE | 2023-02-13 17:16 | EKG12_ITS ---
Test Reason : SOB Blood Pressure : / mmHG Vent. Rate : 145 BPM Atrial Rate : 000 BPM P-R Int : 000 ms QRS Dur : 086 ms QT Int : 256 ms P-R-T Axes : 000 056 -21 degrees QTc Int : 397 ms Critical Test Result: High HR Atrial fibrillation with rapid ventricular response Abnormal QRS-T angle, consider primary T wave abnormality Abnormal ECG Confirmed by KRYSTEN DYER, FINA ([id number]), map editor APURVA RIBERA ([id number]) on 02/19/2023 7:06:37 AM Referred By: PL/TL Confirmed By:EASTON BASHIR MD
[2023-02-13 17:17] VITALS: O2SAT 98
[2023-02-13 17:37] LABS: Absolute Lymphocyte Count 3.64 X10^3/uL (0.83-4.51); Absolute Neutrophil Count 6.3 X10^3/uL (2.0-7.7); Basophil# 0.05 X10^3/uL; Basophil% 0.5 % (0-1); Eosinophil# 0.13 X10^3/uL; Eosinophils% 1.2 % (0-5); Hematocrit 44.3 % (40-54); Lymphocyte # 3.64 X10^3/ul (0.83-4.51); Lymphocyte % 33.2 % (19-41); Mean Corp Hgb Conc 33.9 g/dL (32-36); Mean Corpuscular Hgb 28.7 pg (27.0-32.0); Mean Corpuscular Volume 84.9 fL (80-94); Monocyte# 0.81 X10^3/uL; Monocyte% 7.4 % (0-10); NRBC Flagged by Analyzer 0 % (0-5); Neutrophil % 57.3 % (47-70); Platelet Count 304 K/mm3 (150-450); RBC Distribution Width CV 12.3 % (11.6-14.6); RBC Distribution Width SD 37.5 fl (35.1-43.9); Red Blood Count 5.22 M/mm3 (4.6-6.2)
--- NOTE | 2023-02-13 17:50 | EDS_ITS ---
HPI History of Present Illness Chief Complaint: Shortness of Breath Informant: patient Narrative Narrative: Patient referred in the ED after consult PCP today increasing left knee pain and swelling to the calf over 5 days. 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 No history of PE or DVT. No recent travel. He is on Eliquis for history of paroxysmal atrial fibrillation. He is on metoprolol 50 mg once a day. Reports exertional dyspnea worsening over 2 days no chest pains. He states mild dyspnea since last month before [place]. He was seen in the ER. He had COVID before also. He states he does not feel his heart rhythm go in or out. [facility] Medical History Anxiety Chest pain Mixed hyperlipidemia Paroxysmal atrial fibrillation RBBB SOB (shortness of breath) Home Medications buspirone 15 mg tablet 15 mg PO BID 03/13/19 [History Last Taken Unknown] venlafaxine 75 mg capsule,extended release 24 hr (Effexor XR) 300 mg PO DAILY 03/13/19 [History Last Taken Unknown] apixaban 5 mg tablet (Eliquis) 5 mg PO BID 10/29/20 [History Last Taken Unknown] hydroxyzine pamoate 100 mg capsule 100 mg PO QHS PRN Sleep 10/29/20 [History Last Taken Unknown] rosuvastatin 10 mg tablet 10 mg PO DAILY 10/29/20 [History Last Taken Unknown] metoprolol succinate 50 mg tablet,extended release 24 hr 50 mg PO DAILY #30 tabs 04/20/22 [Rx Last Taken Unknown] allopurinol 100 mg tablet 100 mg PO DAILY 02/13/23 [History Last Taken Unknown] metoprolol succinate 25 mg tablet,extended release 24 hr 25 mg PO DAILY #30 tabs 02/13/23 [Rx Last Taken Unknown] Allergy/AdvReac Type Severity Reaction Status Date / Time No Known Allergies Allergy Verified 02/13/23 16:58 Family History Father CAD (coronary artery disease) Myocardial infarction Grandfather CAD (coronary artery disease) Myocardial infarction Surgical History History of repair of hiatal hernia History of spinal fusion Social History Smoking Status: Never smoker alcohol intake: current details: occasional substance use type: does not use caffeine: Yes Type: coffee Number of servings: 1 ROS ROS ED Constitutional Constitutional ED: Denies chills, fever(s) or sweats Eyes Eyes: Denies change in vision ENT ENT ED: Denies dysphagia or sore throat Cardiovascular Cardiovascular: Denies chest pain, leg edema, palpitations or racing heartbeat Respiratory/Chest Respiratory/Chest: Reports dyspnea and dyspnea on exertion; Denies cough Gastrointestinal Gastrointestinal: Denies abdominal pain, diarrhea, nausea or vomiting Genitourinary Genitourinary ED: Denies dysuria, hematuria or urinary frequency Musculoskeletal Musculoskeletal: Reports extremity pain; Denies back pain or neck pain Integumentary Denies rash or wounds Neurologic Neurologic: Denies headache(s), paresthesias or weakness EXAM Physical Exam Const Vital Signs: 02/13/23 16:55 02/13/23 17:17 02/13/23 18:05 Temperature 98 F Temperature Source Temporal Pulse Rate 81 Respiratory Rate 18 Respiratory Effort Normal Respiratory Depth Normal Respiratory Pattern Normal Blood Pressure 144/77 H Blood Pressure Mean 99 Pulse Ox 99 98 Oxygen Delivery Method Room Air Room Air 02/13/23 18:13 02/13/23 19:59 Temperature Temperature Source Pulse Rate 97 Respiratory Rate 18 Respiratory Effort Respiratory Depth Respiratory Pattern Blood Pressure 133/70 H Blood Pressure Mean 91 Pulse Ox 95 Oxygen Delivery Method Room Air Room Air Positive well nourished and well developed General Appearance ED: well developed and NAD HEENT Reports moist mucous membranes normocephalic and atraumatic Eyes PERRL, EOMs intact bilaterally and conjunctivae normal General Eye ED: Yes normal appearance of both eyes Neck no lymphadenopathy and supple General: Negative for tenderness Chest Wall Chest: Negative for tenderness Resp normal respiratory effort and normal air movement Effort and Inspection: symmetric chest movement; Negative for respiratory distress Cardio regular rate, regular rhythm and no murmurs Peripheral Pulses: pulses 2+ throughout GI normal to inspection, nondistended, normoactive bowel sounds and non-tender Palpation: Negative for guarding or rebound tenderness present Back/Spine no CVA tenderness and no thoracic nor lumbar tenderness Extremity Extremity Narrative: Left lower extremity: Negative logroll. Knee extensor intact. There is patellar tenderness there is callus to the infrapatellar region. No erythema. Negative varus and valgus. No deformities. No erythema no warmth. Skin intact. Neuro vas intact distally. General Extremety ED: Negative for edema or tenderness General Extremity: Negative for edema Neuro oriented x3, CN's II-XII intact bilaterally and no sensory deficits noted Sensorium / Orientation: awake and alert Skin no rashes or lesions noted and no wounds MDM MDM MDM Narrative Medical decision making narrative: Interventions / MDM: Differential diagnosis: Atrial fibrillation Diagnosis considered but do not suspect: Pulmonary embolus however he is on Eliquis and being compliant. DVT with ultrasound negative. No clinical cellulitis or septic knee My EKG interpretation: A-fib RVR at 145, no ST changes. Imaging independently reviewed and interpreted by myself: Left knee x-ray 4 views: Soft tissue swelling, no bony process. Two-view chest x-ray: No acute process no pleural effusion. This also read by radiology. External documents reviewed: N/A Test considered but not ordered:N/A ED course: Patient presentation for left knee and calf pain. Triage EKG had concerns A-fib RVR. However on the room appears to be in normal sinus rhythm and not tachycardic. Will place him on a monitor. Labs will be ordered, will check ultrasound of his leg and left knee x-ray. X-ray soft tissue swelling no clinical cellulitis or septic knee. Heart rate resting go down to the 80s and 90s. Chest x-ray negative. Negative ultrasound for DVT. Patient ambulated became slightly more dyspneic however not hypoxic his heart rate would go in the 120s. I suspect with exertion these more A-fib with RVR causing symptoms. Currently on 50 mg metoprolol. Previous history of paroxysmal A-fib however previously had controlled A-fib a month ago. Discussed with increases metoprolol to total 75 mg which she will take additional 25 mg which is sent to his pharmacy once a day. Continue his Eliquis. He will call his cardiology team for follow-up. Return precaution discussed. He will monitor for lightheaded symptoms in case he goes back into normal rhythm becomes bradycardic. All questions were answered. Re-evaluation: stable Disposition discussed with patient/family/significant other: Patient and son Case discussed with consulting clinician: N/A This note was generated with Mobile [employer]ation software. It may contain incorrect words, spelling, and punctuation that were not noted in checking the note before signing. Lab Data Attestation: I reviewed the patient's lab results. Labs: Laboratory Results - last 24 hr 02/13/23 17:13 WBC 11.0 RBC 5.22 Hgb 15.0 Hct 44.3 MCV 84.9 MCH 28.7 MCHC 33.9 RDW Std Deviation 37.5 RDW Coeff of Yolanda 12.3 Plt Count 304 MPV 9.0 Immature Gran % (Auto) 0.400 Neut % (Auto) 57.3 Lymph % (Auto) 33.2 [place] % (Auto) 7.4 Eos % (Auto) 1.2 Baso % (Auto) 0.5 Absolute Neuts (auto) 6.3 Absolute Lymphs (auto) 3.64 Nucleated RBC % 0 Sodium 138 Potassium 4.1 Chloride 104 Carbon Dioxide 30.0 Anion Gap 4 L BUN 20 H Creatinine 1.26 Estim Creat Clear Calc 60.35 Est GFR (MDRD) Af Amer 74 Est GFR (MDRD) Non-Af 61 BUN/Creatinine Ratio 15.9 Glucose 161 H Calcium 10.3 H Troponin I High Sens 10 Radiography Diagnostic Testing: Clinical Impression(s) from Imaging Studies Venous Duplex 02/13/23 18:02 IMPRESSION: Normal venous Doppler ultrasound of the lower extremity. Electronically Signed: Luke Ludwig MD at 19:58 EST Reading Location ID and State: [facility] / [place] , Service support , Chest X-Ray 02/13/23 18:23 IMPRESSION: No acute cardiopulmonary disease. Stable posttraumatic and postoperative changes. Electronically Signed: Luke Ludwig MD at 19:09 EST , Knee X-Ray 02/13/23 18:23 IMPRESSION: Anterior soft tissue swelling. Mild degenerative change Electronically Signed: Luke Ludwig MD at 19:16 EST , Discharge Plan Triage Chief Complaint: Shortness of Breath ED Provider: Alin Green Dx/Rx/DC Orders Clinical Impression: Atrial fibrillation, SOB (shortness of breath), Knee pain, left Instructions: AFib Dc Prescriptions: New metoprolol succinate 25 mg tablet extended release 24 hr 25 mg PO DAILY Qty: 30 0RF No Action buspirone 15 mg tablet 15 mg PO BID hydroxyzine pamoate 100 mg capsule 100 mg PO QHS PRN (Reason: Sleep) venlafaxine [Effexor XR] 75 mg capsule,extended release 24hr 300 mg PO DAILY rosuvastatin 10 mg tablet 10 mg PO DAILY Eliquis 5 mg tablet 5 mg PO BID allopurinol 100 mg tablet 100 mg PO DAILY Patient Comments: TAKE 1 TABLET BY MOUTH EVERY DAY AFTER MEALS metoprolol succinate 50 mg tablet extended release 24 hr 50 mg PO DAILY Qty: 30 12RF Primary Care Provider: Riley Rodriguez Referrals: Shukri Olson MD [Med Staff - Active Staff] - 1 Week Riley Rodriguez DO [Primary Care Provider] - Activity Restrictions/Additional Instructions: Your knee x-ray negative, ultrasound left leg negative for DVT. With ambulation your heart rate would go up with your A-fib causing symptoms. Take additional 25 mg daily for total of 75 mg of metoprolol for your A-fib. Continue your Eliquis. Follow-up with cardiology as an outpatient. Return if any worsening symptoms. Disposition Disposition: Home, Self Care Discharge Date/Time: 02/13/23 20:53
[2023-02-13 18:01] LABS: Anion Gap 4 (5-15); BUN 20 mg/dL (7-18); BUN/Creat Ratio 15.9 RATIO (10-20); Calcium,Total 10.3 mg/dL (8.5-10.1); Chloride 104 mmol/L (98-107); Creatinine, Serum 1.26 mg/dL (0.70-1.30); EST Glomerular Filtration Rate 61 mL/min (>60); Est Glom Filt Rate - Afr Amer 74 mL/min (>60); Estimated Creatinine Clearance 60.35 ml/min; Glucose 161 mg/dL (74-106); Potassium 4.1 mmol/L (3.5-5.1); Sodium Level 138 mmol/L (136-145); Troponin-I HS 10 pg/mL (3.0-78.0)
--- NOTE | 2023-02-13 18:02 | US_ITS ---
STUDY: VENOUS DOPPLER ULTRASOUND - LEFT LOWER EXTREMITY REASON FOR EXAM: Male, 67 years old. LT LEG SWELLING TECHNIQUE: Ultrasound evaluation of the deep vein system to include [place]-scale imaging and compression was performed. [place]-scale imaging and Doppler sonographic evaluation, including duplex spectral analysis and qualitative color flow sonography, was performed. COMPARISON: None. FINDINGS: Common Femoral Vein: Normal compression, spontaneity and augmentation. Normal color Doppler. Common Femoral Vein/Greater Saphenous Junction: Normal compression, spontaneity and augmentation. Normal color Doppler. Deep Femoral Vein: Normal compression, spontaneity and augmentation. Normal color Doppler. Femoral Proximal: Normal compression, spontaneity and augmentation. Normal color Doppler. Femoral Middle: Normal compression, spontaneity and augmentation. Normal color Doppler. Femoral Distal: Normal compression, spontaneity and augmentation. Normal color Doppler. Popliteal Vein: Normal compression, spontaneity and augmentation. Normal color Doppler. Posterior Tibial Vein: Normal compression, spontaneity and augmentation. Normal color Doppler. Peroneal Vein: Normal compression, spontaneity and augmentation. Normal color Doppler. There is no demonstrated deep venous thrombosis. US/Venous Duplex Imag/Limited/Uni IMPRESSION: Normal venous Doppler ultrasound of the lower extremity. Electronically Signed: Luke Ludwig MD at 19:58 EST ,
--- NOTE | 2023-02-13 18:23 | RAD_ITS ---
STUDY: X-RAY CHEST REASON FOR EXAM: Male, 67 years old. SOB TECHNIQUE: Single AP portable view of the chest. COMPARISON: January 23, 2023 FINDINGS: The lungs are clear and expanded. There is no demonstrated pleural abnormality. Normal size heart. Normal mediastinum and zachary. Normal visualized pulmonary arteries. Normal visualized aortic arch and descending thoracic aorta. Normal visualized thoracic spine. There are multiple healed left rib fractures including status post ORIF with fixation plate and screws. There is no demonstrated abnormality of the visualized soft tissue structures of the upper abdomen. RAD/Chest 1 View (Portable) IMPRESSION: No acute cardiopulmonary disease. Stable posttraumatic and postoperative changes. Electronically Signed: Luke Ludwig MD at 19:09 EST ,
--- NOTE | 2023-02-13 18:23 | RAD_ITS ---
STUDY: X-RAY - LEFT KNEE REASON FOR EXAM: Male, 67 years old. Pain TECHNIQUE: 4 view(s) of the knee. COMPARISON: None. FINDINGS: Normal visualized distal femur. Normal visualized proximal tibia and fibula. Normal proximal tibiofibular articulation. There is no demonstrated fracture. There is mild degenerative arthrosis of the medial femorotibial compartment. Normal lateral femorotibial compartment. There is mild degenerative arthrosis of the patellofemoral articulation. There is anterior soft tissue swelling. RAD/Knee 4 or More Views IMPRESSION: Anterior soft tissue swelling. Mild degenerative change Electronically Signed: Luke Ludwig MD at 19:16 EST ,
[2023-02-13 19:59] VITALS: BP 133/70; PULSE 97; RESP 18; O2SAT 95; O2SAT 97
== END 2023-02-13 20:53 | disposition home or self-care (01) ==
PROVIDERS: Emergency Provider Emergency Medicine; Visit Provider Emergency Medicine
DX: I48.0 Paroxysmal atrial fibrillation (principal); R06.02 Shortness of breath; M25.562 Pain in left knee; E78.2 Mixed hyperlipidemia; F41.9 Anxiety disorder, unspecified; Z79.01 Long term (current) use of anticoagulants; Z79.899 Other long term (current) drug therapy; Z86.16 Personal history of COVID-19
CPT/HCPCS: 71045; 73564; 80048; 84484; 85025; 93005; 93971; 94760; 99284; A4216

== ENCOUNTER 2023-03-02 12:26 | Emergency (ER) | payer OTHER, SELFPAY ==
[2023-03-02 12:27] VITALS: BP 138/90; PULSE 80; RESP 14; TEMP 35.6; O2SAT 99; BMI 36.5
[2023-03-02 12:53] VITALS: BP 117/77; PULSE 73; RESP 13; TEMP 36.4; O2SAT 100
--- NOTE | 2023-03-02 12:54 | NURSING ---
Dr Garland gave verbal orders to not place a C collar at this time.
--- NOTE | 2023-03-02 13:04 | EKG12_ITS ---
Test Reason : HEAD INJURY Blood Pressure : / mmHG Vent. Rate : 070 BPM Atrial Rate : 000 BPM P-R Int : 000 ms QRS Dur : 094 ms QT Int : 444 ms P-R-T Axes : 000 039 028 degrees QTc Int : 479 ms Atrial fibrillation Abnormal ECG Confirmed by MANJINDER RUBIO MD ([id number]), editor department APURVA RIBERA ([id number]) on 03/06/2023 8:27:50 AM Referred By: Kg Garland Confirmed By:MANJINDER RUBIO MD
--- NOTE | 2023-03-02 13:04 | CT_ITS ---
INDICATION: trauma EXAMINATION: CT CERVICAL SPINE - CT Spine Cervical W/O Contrast Injection TECHNIQUE: Helically acquired images were obtained of the cervical spine. 2D reformatted images were reviewed. A radiation dose optimization technique was used for this scan. IV Contrast dosage and agent: None. RADIATION DOSAGE (If Supplied By Facility): CTDIvol = ( 20.73 ) mGy, DLP = ( 482.33 ) mGycm COMPARISON: Prior study dated: 07/21/2021. FINDINGS: VERTEBRAE: Small irregularity or chip fracture of the anterior-inferior aspect of C4 vertebra of undetermined age but new since the previous exam. The vertebral heights are otherwise within normal limits. No evidence of acute compression fracture deformity. No discrete lytic or blastic abnormality. Straightening of the cervical spine. Normal craniocervical junction and cervicothoracic junction. DISCS and SPINAL CANAL: Narrowing of C5-C6 disc space with posterior lateral degenerative spurs and mild narrowing of the neural foramina. Degenerative changes in the apophyseal joints at the levels of C5-C6 and C6-7 unchanged. Otherwise no critical stenosis. NECK SOFT TISSUES: No prevertebral soft tissue swelling. There is no cervical adenopathy. LUNG APICES: Clear. CT/Spine Cervical without [place] IMPRESSION: 1. Irregularity of the anterior-inferior aspect of C4 vertebra could represent small chip fracture of undetermined age but new since previous exam without prevertebral soft tissue swelling. 2. Otherwise no evidence of acute fracture or subluxation. 3. Degenerative changes.. Electronically Signed: Patrice Arellano MD at 13:52 EST ,
--- NOTE | 2023-03-02 13:04 | CT_ITS ---
INDICATION: trauma EXAMINATION: CT BRAIN - CT Head or Brain W/O Contrast Injection TECHNIQUE: Multiple axial images were obtained of the head without intravenous contrast. A radiation dose optimization technique was used for this scan. IV Contrast dosage and agent: None. RADIATION DOSAGE (If Supplied By Facility): CTDIvol = ( 47.06 ) mGy, DLP = ( 943.26 ) mGycm COMPARISON: Prior study dated: 07/21/2021. FINDINGS: BRAIN PARENCHYMA: No intra- or extra-axial hemorrhage. No evidence of acute infarct. No intracranial mass or mass effect. There is preservation of the [place]/white matter interface. Posterior fossa structures are unremarkable. CSF SPACES: Appropriate for age. No hydrocephalus. Basal cisterns are patent. CALVARIUM, SKULL BASE, PARANASAL SINUSES AND MASTOID AIR CELLS: Clear. No discrete lytic or blastic abnormalities. ORBITS: Both globes, extraocular muscles, optic nerves and retrobulbar fat appear unremarkable. CT/Brain/Head without Contrast IMPRESSION: No acute intracranial process. Electronically Signed: Patrice Arellano MD at 13:43 EST ,
--- NOTE | 2023-03-02 13:11 | EDS_ITS ---
HPI History of Present Illness Chief Complaint: Head Injury Informant: patient and spouse/S.O. Narrative Narrative: 67-year-old male on apixaban for atrial fibrillation presenting to the emergency room following a syncopal episode. Patient states that approximately 34 hours ago he began to have vomiting and diarrhea. He was on the toilet when he had a syncopal episode. Struck his left forehead. He notes pain in his posterior neck and a headache. He was persistent nausea. He notes sweats. He was diagnosed with COVID about a month ago. [facility] Medical History Anxiety Chest pain Mixed hyperlipidemia Paroxysmal atrial fibrillation RBBB SOB (shortness of breath) Home Medications buspirone 15 mg tablet 15 mg PO BID 03/13/19 [History Last Taken Unknown] venlafaxine 75 mg capsule,extended release 24 hr (Effexor XR) 300 mg PO DAILY 03/13/19 [History Last Taken Unknown] apixaban 5 mg tablet (Eliquis) 5 mg PO BID 10/29/20 [History Last Taken Unknown] hydroxyzine pamoate 100 mg capsule 100 mg PO QHS PRN Sleep 10/29/20 [History Last Taken Unknown] rosuvastatin 10 mg tablet 10 mg PO DAILY 10/29/20 [History Last Taken Unknown] metoprolol succinate 50 mg tablet,extended release 24 hr 50 mg PO DAILY #30 tabs 04/20/22 [Rx Last Taken Unknown] allopurinol 100 mg tablet 100 mg PO DAILY 02/13/23 [History Last Taken Unknown] metoprolol succinate 25 mg tablet,extended release 24 hr 25 mg PO DAILY #30 tabs 02/13/23 [Rx Last Taken Unknown] ondansetron 4 mg disintegrating tablet 4 mg PO Q6H PRN PRN Nausea #15 tabs 03/02/23 [Rx Last Taken Unknown] oxycodone-acetaminophen 5 mg-325 mg tablet 1 tab PO Q6H PRN PRN Pain 3 days #12 TABLETS 03/02/23 [Rx Last Taken Unknown] Allergy/AdvReac Type Severity Reaction Status Date / Time No Known Allergies Allergy Verified 03/02/23 12:27 Family History Father CAD (coronary artery disease) Myocardial infarction Grandfather CAD (coronary artery disease) Myocardial infarction Surgical History History of repair of hiatal hernia History of spinal fusion Social History Smoking Status: Never smoker alcohol intake: current details: occasional substance use type: does not use caffeine: Yes Type: coffee Number of servings: 1 ROS ROS ED Constitutional Constitutional ED: Reports sweats; Denies chills, fever(s) or weight loss Eyes Eyes: Denies change in vision or diplopia ENT ENT ED: Reports rhinorrhea; Denies ear pain or sore throat Cardiovascular Cardiovascular: Denies chest pain, orthopnea, palpitations or racing heartbeat Respiratory/Chest Respiratory/Chest: Reports cough; Denies dyspnea or orthopnea Gastrointestinal Gastrointestinal: Reports diarrhea, nausea and vomiting; Denies abdominal pain Genitourinary Genitourinary ED: Denies dysuria, hematuria or urinary frequency Musculoskeletal Musculoskeletal: Reports myalgias and neck pain; Denies arthralgias or back pain Integumentary Denies abscess or rash Neurologic Neurologic: Reports headache(s); Denies weakness Psychiatric Psychiatric: Denies anxiety, depression, suicidal ideation or suicidal thoughts Endocrine Endocrinology: Denies polydipsia, polyphagia or polyuria Allergic/Immunologic Allergic/Immunologic ED: Denies mouth swelling, tongue swelling or urticaria EXAM Physical Exam Const Vital Signs: 03/02/23 12:27 03/02/23 12:44 03/02/23 12:53 Temperature 96.1 F L 97.6 F L Temperature Source Temporal Oral Pulse Rate 80 73 Respiratory Rate 14 13 Respiratory Effort Normal Non-Labored Respiratory Depth Normal Respiratory Pattern Normal Blood Pressure 138/90 H 117/77 Blood Pressure Mean 106 90 Pulse Ox 99 100 Oxygen Delivery Method Room Air Room Air Room Air 03/02/23 13:35 03/02/23 15:03 03/02/23 16:05 Temperature Temperature Source Pulse Rate 69 95 82 Respiratory Rate 14 9 L 16 Respiratory Effort Respiratory Depth Respiratory Pattern Blood Pressure 126/92 H 124/88 H Blood Pressure Mean 103 100 Pulse Ox 100 94 94 Oxygen Delivery Method Room Air Room Air Positive well nourished, well developed and obese General Appearance ED: well developed Nutritional Appearance: obese HEENT Reports normocephalic and moist mucous membranes HEENT Narrative: Left periorbital contusion Eyes PERRL and EOMs intact bilaterally Neck no lymphadenopathy, supple and no JVD Resp normal respiratory effort and clear to auscultation bilaterally Cardio regular rate, regular rhythm and no murmurs GI normal to inspection, nondistended, normoactive bowel sounds and non-tender Palpation: soft Back/Spine no CVA tenderness and normal ROM Cervical Spine: cervical spine tenderness Extremity normal to inspection General Extremety ED: Negative for edema General Extremity: Negative for edema Neuro oriented x3 and CN's II-XII intact bilaterally Sensorium / Orientation: alert Motor Exam: strength 5/5 throughout Psych mental status grossly normal Mood & Affect: Negative for depressed or tearful Skin no rashes or lesions noted and no wounds MDM MDM MDM Narrative Medical decision making narrative: Basic blood work was fairly unremarkable. BUN of 24 with a creatinine 1.25. White count 8.7. Troponin 7 lipase 22. Normal liver enzymes. CT the brain demonstrated no acute hemorrhage or fracture. CT of the cervical spine demonstrated an anterior inferior wedge fracture of C4. This was discussed with orthopedic spine and is stable. We will use A soft collar for comfort. He will need to follow-up with them. Clinically I think the patient has a gastroenterit is. He received IV fluids morphine Zofran and Ativan. He is not overtly volume depleted. I think the syncopal episode was vagally mediated. I will write for Zofran. I can write for some pain medication. Patient is comfortable with follow-up return if worsening or concerns History & Record Review Discussion w/independent historian: Patient and Family Lab Data Attestation: I reviewed the patient's lab results. Labs: Laboratory Results - last 24 hr 03/02/23 12:56 WBC 8.7 RBC 5.69 Hgb 16.4 Hct 49.2 MCV 86.5 MCH 28.8 MCHC 33.3 RDW Std Deviation 40.0 RDW Coeff of Yolanda 12.9 Plt Count 296 MPV 8.9 Immature Gran % (Auto) 0.200 Neut % (Auto) 47.7 Lymph % (Auto) 41.8 H Divide % (Auto) 8.9 Eos % (Auto) 1.2 Baso % (Auto) 0.2 Absolute Neuts (auto) 4.1 Absolute Lymphs (auto) 3.62 Nucleated RBC % 0 Sodium 139 Potassium 4.2 Chloride 107 Carbon Dioxide 27.0 Anion Gap 5 BUN 24 H Creatinine 1.25 Estim Creat Clear Calc 60.83 Est GFR (MDRD) Af Amer 75 Est GFR (MDRD) Non-Af 62 BUN/Creatinine Ratio 19.2 Glucose 132 H Calcium 9.4 Total Bilirubin 0.50 Direct Bilirubin 0.16 AST 29 ALT 46 Alkaline Phosphatase 60 Troponin I High Sens 7 Total Protein 7.5 Albumin 3.7 Globulin 3.8 Lipase 22 Radiography Diagnostic Testing: Clinical Impression(s) from Imaging Studies Brain CT 03/02/23 13:04 IMPRESSION: No acute intracranial process. Electronically Signed: Patrice Arellano MD at 13:43 EST , Cervical Spine CT 03/02/23 13:04 IMPRESSION: 1. Irregularity of the anterior-inferior aspect of C4 vertebra could represent small chip fracture of undetermined age but new since previous exam without prevertebral soft tissue swelling. 2. Otherwise no evidence of acute fracture or subluxation. 3. Degenerative changes.. Electronically Signed: Patrice Arellano MD at 13:52 EST , EKG Initial EKG: Attestation: I personally reviewed and interpreted this EKG as follows: Comments: Atrial fibrillation with a ventricular rate of 70 bpm. Discharge Plan Triage Chief Complaint: Head Injury ED Provider: Kg Garland Dx/Rx/DC Orders Clinical Impression: Anticoagulated, Concussion, Gastroenteritis, Syncope, Fx C4 vertebra-closed Instructions: Fx Neck Spine, ED Concussion, ED Fainting, Vagal Reaction, ED Gastroenteritis, Viral (Adult) Prescriptions: New oxycodone-acetaminophen [oxycodone-acetaminophen] 5-325 mg tablet 1 tab PO Q6H PRN PRN (Reason: Pain) 3 Days Qty: 12 0RF ondansetron [ondansetron] 4 mg tablet,disintegrating 4 mg PO Q6H PRN PRN (Reason: Nausea) Qty: 15 0RF No Action buspirone 15 mg tablet 15 mg PO BID hydroxyzine pamoate 100 mg capsule 100 mg PO QHS PRN (Reason: Sleep) venlafaxine [Effexor XR] 75 mg capsule,extended release 24hr 300 mg PO DAILY rosuvastatin 10 mg tablet 10 mg PO DAILY Eliquis 5 mg tablet 5 mg PO BID allopurinol 100 mg tablet 100 mg PO DAILY Patient Comments: TAKE 1 TABLET BY MOUTH EVERY DAY AFTER MEALS metoprolol succinate 25 mg tablet extended release 24 hr 25 mg PO DAILY Qty: 30 0RF metoprolol succinate 50 mg tablet extended release 24 hr 50 mg PO DAILY Qty: 30 12RF Primary Care Provider: Riley Rodriguez Referrals: Sukhjinder Foster MD [Med Staff - Active Staff] - As soon as possible (for orthopedic spine care) Riley Rodriguez DO [Primary Care Provider] - As Needed Disposition Disposition: Home, Self Care Discharge Date/Time: 03/02/23 16:10
[2023-03-02] MEDS: Ondansetron 4 MG/2 ML Vial IV (13:12)
[2023-03-02] MEDS: 0.9% Normal Saline (1000mL) 1,000 ML 1000 ML IV (13:12)
[2023-03-02] MEDS: Morphine 4 MG/ML Syringe IV (13:12)
[2023-03-02 13:24] LABS: Absolute Lymphocyte Count 3.62 X10^3/uL (0.83-4.51); Absolute Neutrophil Count 4.1 X10^3/uL (2.0-7.7); Basophil# 0.02 X10^3/uL; Basophil% 0.2 % (0-1); Eosinophils% 1.2 % (0-5); Hematocrit 49.2 % (40-54); Hemoglobin 16.4 g/dL (13.0-16.5); Lymphocyte # 3.62 X10^3/ul (0.83-4.51); Lymphocyte % 41.8 % (19-41); Mean Corp Hgb Conc 33.3 g/dL (32-36); Mean Corpuscular Hgb 28.8 pg (27.0-32.0); Mean Corpuscular Volume 86.5 fL (80-94); Mean Platelet Vol. 8.9 fl (6.2-12.0); Monocyte# 0.77 X10^3/uL; Monocyte% 8.9 % (0-10); NRBC Flagged by Analyzer 0 % (0-5); Neutrophil # 4.13 X10^3/uL (2.7-7.7); Neutrophil % 47.7 % (47-70); Platelet Count 296 K/mm3 (150-450); RBC Distribution Width CV 12.9 % (11.6-14.6); Red Blood Count 5.69 M/mm3 (4.6-6.2); White Blood Count 8.7 K/mm3 (4.4-11.0)
[2023-03-02 13:35] VITALS: BP 126/92; PULSE 69; RESP 14; O2SAT 100
[2023-03-02 13:37] LABS: AST(SGOT) 29 U/L (15-37); Alanine Aminotransfer ALT/SGPT 46 U/L (16-61); Albumin, Serum 3.7 g/dL (3.2-5.0); Alkaline Phosphatase 60 U/L (45-117); Anion Gap 5 (5-15); BUN 24 mg/dL (7-18); BUN/Creat Ratio 19.2 RATIO (10-20); Bilirubin, Direct 0.16 mg/dL (0.00-0.30); Calcium,Total 9.4 mg/dL (8.5-10.1); Chloride 107 mmol/L (98-107); Creatinine, Serum 1.25 mg/dL (0.70-1.30); EST Glomerular Filtration Rate 62 mL/min (>60); Est Glom Filt Rate - Afr Amer 75 mL/min (>60); Estimated Creatinine Clearance 60.83 ml/min; Globulin 3.8 g/dL (2.2-4.2); Glucose 132 mg/dL (74-106); Lipase 22 U/L (13-75); Potassium 4.2 mmol/L (3.5-5.1); Protein, Total 7.5 g/dL (6.4-8.2); Sodium Level 139 mmol/L (136-145); Troponin-I HS 7 pg/mL (3.0-78.0)
--- OUTSIDE RECORDS SUMMARY | 2023-03-02 13:57 | XMS RPT_ITS | CCD ---
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 Name Role Phone JUNE BENTLEY Unavailable Unavailable JAMES LORA Unavailable Unavailable JAMES LORA Unavailable Unavailable JUNE BENTLEY Unavailable Unavailable Ravinder Ernandez Primary Care Provider [phone] Cleveland Perez Unavailable Ravinder Ernandez Primary Care Provider [phone] Cleveland Perez Unavailable DANA RICARDO DO Primary Care Physician DANA RICARDO DO Primary Care Unavailable DANA RICARDO DO Attending Unavailable DANA RICARDO DO Attending Unavailable DANA RICARDO DO Primary Care Unavailable DANA RICARDO DO Attending Unavailable DANA RICARDO DO Primary Care Unavailable DANA RICARDO DO Attending Unavailable DANA RICARDO DO Primary Care Unavailable DANA RICARDO DO Attending Unavailable DANA RICARDO DO Primary Care Unavailable KAITLIN REY Attending Un available DANA RICARDO DO Primary Care Unavailable Allergies Allergy Classification Reported Allergen(s) Allergy Type Date of Onset Reaction(s) Facility (10 sources) Codeine; Translations: [codeine] Drug Allergy 01-09-2016 [facility] Medications Current Medications Medication Drug Class(es) Dates Sig (Normalized) Sig (Original) allopurinol 100 mg oral tablet (3 sources) Xanthine Oxidase Inhibitor Start: 08-29-2022 allopurinol 100 mg oral tablet Dose : 100 mg = 1 tab(s), Oral, qDayPC, # 90 tab(s), 0 Refill(s), Pharmacy: [facility]/pharmacy #[id number], Gout, 180, cm, 08/29/22 9:32:00 EDT, Height, kg, 08/29/22 9:32:00 EDT, Dosing Weight Start Date: 08/29/22 Status: Ordered Completed/Discontinued Medications Medication Drug Class(es) Dates Sig (Normalized) Sig (Original) lidocaine 0.04 mg/mg medicated patch (5 sources) Antiarrhythmic, Amide Local Anesthetic Start: 07-29-2021 lidocaine (SALONPAS) 4 % patch Apply 1 Patch as directed once daily as needed (Pain) for up to 5 doses. 5 Patch 0 07/29/2021 Active Problems Active Problems Problem Classification Problem Date Documented Date Episodic/Chronic Anxiety disorders (5 sources) Generalized anxiety disorder 09-09-2021 Chronic Cardiac dysrhythmias (10 sources) Paroxysmal atrial fibrillation; Translations: [Paroxysmal atrial fibrillation] 07-29-2021 Chronic Coagulation and hemorrhagic disorders (2 sources) Hypercoagulability state 08-29-2022 Chronic Conduction disorders (5 sources) Right bundle branch block; Translations: [Unspecified right bundle-branch block] 12-10-2020 Chronic Crushing injury or internal injury (1 source) Traumatic pneumothorax; Translations: [Traumatic pneumothorax, subsequent encounter] Episodic Diabetes mellitus without complication (2 sources) Prediabetes 05-30-2022 Episodic Disorders of lipid metabolism (11 sources) Mixed hyperlipidemia; Translations: [Mixed hyperlipidemia] 07-25-2021 Chronic Gout and other crystal arthropathies (5 sources) Gout 11-23-2021 Chronic Mood disorders (5 sources) Recurrent major depression 09-09-2021 Chronic Nonspecific chest pain (5 sources) Chest pain; Translations: [Chest pain, unspecified] 12-10-2020 Episodic Other aftercare (5 sources) Long-term current use of anticoagulant; Translations: [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 anticoagulants] 07-22-2021 Episodic Other fractures (8 sources) Fracture of multiple ribs ; Translations: [Multiple fractures of ribs, unspecified side, initial encounter for closed fracture] Onset: 2 07-29-2021 Episodic Other fractures (1 source) Closed fracture of multiple left ribs; Translations: [Multiple fractures of ribs, left side, initial encounter for closed fracture] Episodic Other fractures (3 sources) Fracture of rib 08-11-2021 Episodic Other lower respiratory disease (5 sources) Dyspnea; Translations: [Shortness of breath] 12-10-2020 Episodic Other non-traumatic joint disorders (5 sources) Shoulder pain 08-11-2021 Episodic Other nutritional; endocrine; and metabolic disorders (5 sources) Obese class II; Translations: [Obesity, unspecified] Onset: 1 07-22-2021 Chronic Other nutritional; endocrine; and metabolic disorders (2 sources) Body mass index 30+ - obesity 05-30-2022 Chronic Other nutritional; endocrine; and metabolic disorders (2 sources) Severe obesity 05-30-2022 Chronic Residual codes; unclassified (5 sources) Other specified personal risk factors, not elsewhere classified; Translations: [Other specified personal history presenting hazards to health] 12-10-2020 Episodic Unclassified (1 source) Unknown / UNK(Unknown) Onset: 7 Unclassified (5 sources) Patient encounter status 11-23-2021 Past or Other Problems Problem Classification Problem Date Documented Da te Episodic/Chronic Syncope (1 source) Syncope Onset: 09-10-2016 Results Test Name Value Interpretation Reference Range Facil ity Vital Signs Date Time Vital Sign Value Performing Clinician Faci lity 08-11-2021 13:08-0400 Body height 177.8 cm Acute 359 Work Phone: [facility] 08-11-2021 13:08-0400 Body weight 113.4 kg Acute 359 Work Phone: [facility] 08-11-2021 13:08-0400 Diastolic blood pressure 86 mm[Hg] Acute 359 Work Phone: [facility] 08-11-2021 13:08-0400 Heart rate 86 /min Acute 359 Work Phone: [facility] 08-11-2021 13:08-0400 Respiratory rate 20 /min Acute 359 Work Phone: [facility] 08-11-2021 13:08-0400 SaO2% (BldA) [Mass fraction] 98 % Acute 359 Work Phone: [facility] 08-11-2021 13:08-0400 Systolic blood pressure 129 mm[Hg] Acute 359 Work Phone: [facility] Encounters Encounter Date Encounter Type Care Provider Facility Start: 12-06-2022 End: 12-07-2022 ambulatory DANA RICARDO DO Facility:B Start: 12-06-2022 End: 12-06-2022 Patient encounter procedure DANA RICARDO DO [facility] Start: 10-17-2022 End: 10-18-2022 ambulatory DANA HIGGINSINS DO Facility:B Start: 10-17-2022 End: 10-17-2022 Patient encounter procedure DANA RICARDO DO [facility] Start: 08-23-2022 End: 08-24-2022 ambulatory DANA RICARDO DO Facility:B Start: 07-26-2022 End: 07-27-2022 ambulatory DANA HIGGINSINS DO Facility:B Start: 05-25-2022 End: 05-26-2022 ambulatory DANA E RICARDO DO Facility:B Start: 05-25-2022 End: 05-25-2022 Patient encounter procedure DANA RICARDO DO [facility] Start: 05-25-2022 End: 05-25-2022 Well adult monitoring check done DANA RICARDO DO [facility] Start: 01-02-2022 End: 01-03-2022 ambulatory KAITLIN GAMBOA APRN-EXTRUDER Facility:B Start: 01-02-2022 End: 01-02-2022 Patient encounter procedure KAITLIN GAMBOA APRN-EXTRUDER [facility] Start: 11-23-2021 End: 11-23-2021 Patient encounter procedure DANA RICARDO DO [facility] Start: 11-10-2021 End: 11-10-2021 ambulatory Acute 359 Work Phone: [facility] Procedures Date Procedure Procedure Detail Performing Clinician Start: 08-11-2021 Radiologic exam ches t 2 views Denia Drain SHEET METAL CONTRACTOR.EXTRUDER Work Phone: Start: 07-24-2021 Antibody screen Plan of Treatment Date Care Activity Detail Author Start: 07-29-2024 DIABETES SCREEN DIABETES SCREEN [facility] Start: 10-30-2022 LIPID SCREEN LIPID SCREEN [facility] Start: 02-09-2022 End: 12-10-2022 Radiologic exam chest 2 views XR CHEST 2V FRONTAL/LAT Radiology Routine Multiple rib fractures involving four or more ribs Expected: 02/09/2022 (Approximate), Expires: 12/10/2022 [facility] Work Phone: Immunizations Immunization Date Immunization Notes Care Provider Fa cili 08-29-2022 tetanus toxoid, redu rian diphtheria toxoid, and acellular pertussis vaccine, adsorbed; Translations: [Boostrix (Tdap)] DANA RICARDO DO [facility] 08-29-2022 zoster vaccine recombinant; Translations: [Shingrix] DANA RICARDO DO [facility] 03-21-2022 influenza virus vaccine, unspecified formulation DANA RICARDO DO [facility] 10-05-2021 SARS-CoV-2 mRNA (tozinameran) vaccine DANA RICARDO DO [facility] Payers Date Payer Category Payer Unknown [id number] 2021 Unknown [employer] [id number] 2021-Present [phone] [address] [place] [address] PPO [id number] 2021 Unknown [employer] [id number] 2021-Present [phone] [address] [place] [address] PPO [id number] 2015 Unknown [id number] 1957 Unknown [id number] 1957 Unknown [id number] 1957 Unknown [id number] 1957 Unknown [id number] 1957 Unknown [id number] 1957 Unknown [id number] Social History Date Type Detail Facility Start: 01-09-2016 End: 12-03-2019 Tobacco smoking status NHIS Never smoked tobacco [facility] Start: 01-09-2016 End: 2020 Tobacco use and exposure Smokeless tobacco non-user [facility] Start: 12-13-2020 End: 08-11-2021 Alcohol intake Current drinker of alcohol (finding) [facility] Start: 2020 History SDOH Alcohol Comment occassional [facility] Start: 1955 Sex Assigned At Not on file [facility] Start: 07-19-2021 End: 07-29-2021 Exposure to SARS-CoV-2 (event) Unable to assess [facility] Start: 08-01-2021 End: 11-08-2021 Exposure to SARS-CoV-2 (event) Not sure [facility] Sex Assigned At Male [facility] Medical Equipment Procedure Code Equipment Code Equipment Origin al Text Equipment Identifier Dates Scrw Canc Lck Bl u Rbf 2.4x14 [id number] Start: 07-24-2021 Cap Locking Larg e Bone Screw [id number] Start: 07-24-2021 Washer 9.5mm 323.1290 [id number] St art: 07-24-2021 Plate Straight E ight Hole [id number] Start: 07-24-2021 Advatagerib Shor t Bridge 60mm W/23mm Locking Posts [id number] Start: 07-24-2021 Ribfix Blue Fixa tion Plate Ns [id number] Start: 07-24-2021 Bridge Post Long 23mm 323.1033 [id number] Start: 07-24-2021 Clinical Notes 12-13-2020 to 01-02-2022 Denia Drain, SHEET METAL CONTRACTOR.EXTRUDER - 11/10/2021 12:42 PM EDTAurelio Kelsey PA-C - 08/11/2021 3:02 PM EDRT Mercedez(Jameson) - 08/11/2021 12:15 PM EDT Note Date & Type Note Facility 01-02-2022 Note ORIGINAL HISTORY: Elevated liver enzymes COMPARISON: No TECHNIQUE: The following organs are evaluated: liver, pancreas, gallbladder, common bile duct and right kidney. FINDINGS: The liver is of increased and heterogeneous echogenicity, with mild sparing around the gallbladder fossa. The remaining abdominal organs are unremarkable, although the pancreas is suboptimally visualized. There is no sonographic Jorge sign. The common bile duct is within normal limits at 2 mm in diameter. There is no free fluid. IMPRESSION: Fatty infiltration of the liver, otherwise unremarkable. Interpreted by: Simeon Vasquez MD Preliminary Report By: Simeon Vasquez MD Electronically signed By Simeon Vasquez MD Dictated Date: 01/02/2022 4:13:42 PM Prelim Date: 01/02/2022 4:14:48 PM Sign Date: 01/02/2022 4:14:48 PM Ordering Provider: KAITLIN COOPER [facility] 01-02-2022 Note ORIGINAL HISTORY: Elevated liver enzymes COMPARISON: No TECHNIQUE: The following organs are evaluated: liver, pancreas, gallbladder, common bile duct and right kidney. FINDINGS: The liver is of increased and heterogeneous echogenicity, with mild sparing around the gallbladder fossa. The remaining abdominal organs are unremarkable, although the pancreas is suboptimally visualized. There is no sonographic Jorge sign. The common bile duct is within normal limits at 2 mm in diameter. There is no free fluid. IMPRESSION: Fatty infiltration of the liver, otherwise unremarkable. Interpreted by: Simeon Vasquez MD Preliminary Report By: Simeon Vasquez MD Electronically signed By Simeon Vasquez MD Dictated Date: 01/02/2022 4:13:42 PM Prelim Date: 01/02/2022 4:14:48 PM Sign Date: 01/02/2022 4:14:48 PM Ordering Provider: [facility] 11-10-2021 Note HNO ID: [id number] Author: Denia Bragg APRN.EXTRUDER Service: ? Author Type: Nurse Practitioner Type: Progress Notes Filed: 11/10/2021 1:02 PM Note Text: Trauma Clinic Follow Up Note SERVICE DATE: 11/10/2021 SUBJECTIVE: Mr. Alexandre is following up via telephone today for rib fractures sustained in a fall from a ladder on July 21, 2021. He underwent rib plating on July 24. He called into the office in September reporting a lump near his incision which has since nearly resolved. He denies pain, does report some SOB but it is steadily improving. He has returned to work and normal activities. He has no questions or concerns and is doing well. Discussed plan for 3 month CXR and telephone call, patient agreeable to this plan. OBJECTIVE: CXR: No acute radiographic abnormality. No significant change. PHYSICAL EXAM: Deferred, telephone visit ASSESSMENT AND PLAN: ACTIVE PROBLEM LIST Paf (Paroxysmal Atrial Fibrillation) (Hcc) Rbbb Sob (Shortness of Breath) Mixed Hyperlipidemia Chest Pain At Risk for Stroke Anticoagulant Long-Term Use Obesity, Class II, Bmi 35-39.9 Multiple Rib Fractures Involving Four Or More Ribs 65 year old male s/p fall from ladder on [facility] on 07/21/2021, underwent rib plating on 07/24/2021 Plan: CXR stable Patient recovering well, denies pain, has returned to normal ADLs Follow up in 3 more months (6 months post-op) with telephone call and CXR. Call office with questions/concerns in the interim. Staff Trauma Surgeon: Dr. Lang This Team Access Model visit is a phone encounter. It required patient-provider interaction for the medical decision making as documented below. Total time spent on medical discussion: 5 minutes [id number] SIGNATURE: Denia Bragg APRN.CNP PATIENT NAME: Tien Alexandre DATE: November 10, 2021 TIME: 12:42 PM Pager: [facility] 11-10-2021 History of Presen t illness Narrative Images from the original note were not included. Trauma Clinic Follow Up Note SERVICE DATE: 11/10/2021 SUBJECTIVE: Mr. Alexandre is following up via telephone today for rib fractures sustained in a fall from a ladder on July 21, 2021. He underwent rib plating on July 24. He called into the office in September reporting a lump near his incision which has since nearly resolved. He denies pain, does report some SOB but it is steadily improving. He has returned to work and normal activities. He has no questions or concerns and is doing well. Discussed plan for 3 month CXR and telephone call, patient agreeable to this plan. OBJECTIVE: CXR: No acute radiographic abnormality. No significant change. PHYSICAL EXAM: Deferred, telephone visit ASSESSMENT AND PLAN: ACTIVE PROBLEM LIST Paf (Paroxysmal Atrial Fibrillation) (Hcc) Rbbb Sob (Shortness of Breath) Mixed Hyperlipidemia Chest Pain At Risk for Stroke Anticoagulant Long-Term Use Obesity, Class II, Bmi 35-39.9 Multiple Rib Fractures Involving Four Or More Ribs 65 year old male s/p fall from ladder on [facility] on 07/21/2021, underwent rib plating on 07/24/2021 Plan: CXR stable Patient recovering well, denies pain, has returned to normal ADLs Follow up in 3 more months (6 months post-op) with telephone call and CXR. Call office with questions/concerns in the interim. Staff Trauma Surgeon: Dr. Lang This Team Access Model visit is a phone encounter. It required patient-provider interaction for the medical decision making as documented below. Total time spent on medical discussion: 5 minutes [id number] SIGNATURE: Denia Bragg APRN.CNP PATIENT NAME: Tien Alexandre DATE: November 10, 2021 TIME: 12:42 PM Pager: documented in this encounter [facility] 08-11-2021 Note HNO ID: [id number] Author: Aurelio Kelsey PA-C Service: ? Author Type: Physician Reel And Rewinder Operator Type: Progress Notes Filed: 08/11/2021 3:13 PM Note Text: Trauma Clinic Note SERVICE DATE: 08/11/2021 Trauma Service Pager: For questions or concerns Mon-Fri 6a-5p please page [phone]. After 5pm and on Weekends and Holidays, please page [phone] if in ICU or [phone] if on RNF. SUBJECTIVE: Patient presents to the trauma clinic with his significant other today for follow up after chest trauma with subsequent rib plating. He states he has been using over the counter medications mostly for pain control. He is using Roxicodone at night for additional relief. He is requesting a refill on his gabapentin. He denied any MONROY, ABD pain, N/V, fevers, chills, or cough. He is tolerating his diet and having bowel function. He has some SOB that is exertional. Overall, he feels improved since the injury. He has been working with home health care for PT. All questions and concerns were addressed. OBJECTIVE: Vitals: BP 129/86 Pulse 86 Resp 20 Ht 177.8 cm (5' 10 ) Wt 113.4 kg (250 lb) SpO2 98% BMI 35.87 kg/m? PHYSICAL EXAM: Genl: Appears age appropriate. No acute distress. Resting comfortably. Head/Face: Normocephalic. Atraumatic. Eyes: EOMI. Sclera not icteric, not injected Neck: No mid-line masses. C-spine non-tender. Back: T AND L Spine non-tender, no step-offs or deformities noted. No flank tenderness. Resp: No audible wheezes. Breathing is non-labored on RA @98%. Surgical site of left chest wall and previous left chest tube site with routine healing. No active drainage. There is some minimal TTP of his left chest wall. CVS: HR as above; 2+ pulses at RA bilat. GI: Abdomen is soft, non-tender, not distended. No peritonitis. MSK: Extremities without clubbing, cyanosis, edema. Normal ROM x 4. Skin: Warm and dry. Not jaundiced. Neuro: AANDOx3. Strength and sensation normal. NG. GCS15. Psych: Normal mood. Normal affect. Appropriate insight into current situation. ASSESSMENT AND PLAN: Problem List Items Addressed This Visit Musculoskeletal Multiple rib fractures involving four or more ribs - Primary 65 year old male s/p fall from ladder. Traumatic Injuries: 1. Left lateral 2-9 rib fractures, posterior 3-9 rib fractures 2. Small (<5%) left pneumothorax ? Operations/Procedures: 1. 07/22/2021 - Left chest tube placed 2. 07/24/2021 - Surgical stabilization of rib fractures: external fixation of Left 3 and 4, internal fixation of ribs 5 through 8 all posteriorly, VATS, evacuation of hemotorax, chest tube placement, cryoneurolysis (Dr. Bennett) Care Plan: 1. 2V CXR reviewed with patient. Official radiology read is pending. There is no gross pneumothorax or large hemothorax noted. 2. Patient's O2 status is stable on room air. 3. He reports 0/10 pain at rest, 0/10 pain with deep inspiration, and 2/10 pain with activities 4. Continue prn Tylenol and Roxicodone. I will refill his gabapentin today. 5. Patient is doing well with as expected post-op recovery. 6. Will check another 2V CXR in 3 months and schedule a follow up telephone call at that time as well. 7. Patient is to call us sooner with any questions or concerns. Staff Trauma Surgeon: Dr. Bennett SIGNATURE: Aurelio Kelsey PA-C PATIENT NAME: Tien Alexandre DATE: August 11, 2021 TIME: 3:02 PM Pager: [phone] (text page) [facility] 08-11-2021 History of Presen t illness Narrative Images from the original note were not included. Trauma Clinic Note SERVICE DATE: 08/11/2021 Trauma Service Pager: For questions or concerns Mon-Fri 6a-5p please page [phone]. After 5pm and on Weekends and Holidays, please page [phone] if in ICU or [phone] if on RNF. SUBJECTIVE: Patient presents to the trauma clinic with his significant other today for follow up after chest trauma with subsequent rib plating. He states he has been using over the counter medications mostly for pain control. He is using Roxicodone at night for additional relief. He is requesting a refill on his gabapentin. He denied any MONROY, ABD pain, N/V, fevers, chills, or cough. He is tolerating his diet and having bowel function. He has some SOB that is exertional. Overall, he feels improved since the injury. He has been working with home health care for PT. All questions and concerns were addressed. OBJECTIVE: Vitals: BP 129/86 Pulse 86 Resp 20 Ht 177.8 cm (5' 10 ) Wt 113.4 kg (250 lb) SpO2 98% BMI 35.87 kg/m PHYSICAL EXAM: Genl: Appears age appropriate. No acute distress. Resting comfortably. Head/Face: Normocephalic. Atraumatic. Eyes: EOMI. Sclera not icteric, not injected Neck: No mid-line masses. C-spine non-tender. Back: T & L Spine non-tender, no step-offs or deformities noted. No flank tenderness. Resp: No audible wheezes. Breathing is non-labored on RA @98%. Surgical site of left chest wall and previous left chest tube site with routine healing. No active drainage. There is some minimal TTP of his left chest wall. CVS: HR as above; 2+ pulses at RA bilat. GI: Abdomen is soft, non-tender, not distended. No peritonitis. MSK: Extremities without clubbing, cyanosis, edema. Normal ROM x 4. Skin: Warm and dry. Not jaundiced. Neuro: A&Ox3. Strength and sensation normal. NG. GCS15. Psych: Normal mood. Normal affect. Appropriate insight into current situation. ASSESSMENT AND PLAN: Problem List Items Addressed This Visit Musculoskeletal Multiple rib fractures involving four or more ribs - Primary 65 year old male s/p fall from ladder. Traumatic Injuries: 1. Left lateral 2-9 rib fractures, posterior 3-9 rib fractures 2. Small (<5%) left pneumothorax Operations/Procedures: 1. 07/22/2021 - Left chest tube placed 2. 07/24/2021 - Surgical stabilization of rib fractures: external fixation of Left 3 and 4, internal fixation of ribs 5 through 8 all posteriorly, VATS, evacuation of hemotorax, chest tube placement, cryoneurolysis (Dr. Bennett) Care Plan: 1. 2V CXR reviewed with patient. Official radiology read is pending. There is no gross pneumothorax or large hemothorax noted. 2. Patient's O2 status is stable on room air. 3. He reports 0/10 pain at rest, 0/10 pain with deep inspiration, and 2/10 pain with activities 4. Continue prn Tylenol and Roxicodone. I will refill his gabapentin today. 5. Patient is doing well with as expected post-op recovery. 6. Will check another 2V CXR in 3 months and schedule a follow up telephone call at that time as well. 7. Patient is to call us sooner with any questions or concerns. Staff Trauma Surgeon: Dr. Bennett SIGNATURE: Aurelio Kelsey PA-C PATIENT NAME: Tien Alexandre DATE: August 11, 2021 TIME: 3:02 PM Pager: [phone] (text page) documented in this encounter [facility] 08-11-2021 Note HNO ID: [id number] Author: LATASHA Elizabeth) Service: Radiology Author Type: Technologist Type: Progress Notes Filed: 08/11/2021 12:35 PM Note Text: Radiology Service Progress Note PATIENT NAME: Tien Alexandre DATE OF SERVICE: August 11, 2021 TIME: 12:35 PM PATIENT IDENTITY VERIFICATION COMPLETED USING TWO (2) IDENTIFIERS: Name and Date of confirmed by patient verbally and Name and Date of confirmed by identification band. FALL SCREENING: Has the patient had 2 falls in the last year or 1 fall with injury or currently using an Ambulatory Assistive Device (Walker, Cane, Wheelchair, Crutches, etc.)? No PATIENT GENDER DATA: Male PATIENT RELEVANT IMPLANT DATA REVIEWED: Not Applicable RADIOLOGY DEPARTMENT: General X-ray: Exam(s) Completed: Chest X-Ray PERIPHERAL IV DATA: Not applicable SIGNED BY: LATASHA Elizabeth) August 11, 2021 12:35 PM [facility] 08-11-2021 History of Presen t illness Narrative Radiology Service Progress Note PATIENT NAME: Tien Alexandre DATE OF SERVICE: August 11, 2021 TIME: 12:35 PM PATIENT IDENTITY VERIFICATION COMPLETED USING TWO (2) IDENTIFIERS: Name and Date of confirmed by patient verbally and Name and Date of confirmed by identification band. FALL SCREENING: Has the patient had 2 falls in the last year or 1 fall with injury or currently using an Ambulatory Assistive Device (Walker, Cane, Wheelchair, Crutches, etc.)? No PATIENT GENDER DATA: Male PATIENT RELEVANT IMPLANT DATA REVIEWED: Not Applicable RADIOLOGY DEPARTMENT: General X-ray: Exam(s) Completed: Chest X-Ray PERIPHERAL IV DATA: Not applicable SIGNED BY: RT Glenn(Jameson) August 11, 2021 12:35 PM documented in this encounter [facility] 08-02-2021 Miscellaneous Notes PATIENT INFORMATION Record ID: [id number] Patient Name: Tien Alexandre Hospital: [facility] [place]: [facility]) Attending: Alexandro Brantley Center: General Surgery [facility] INSTRUCTIONS All Clear SN to remind patient of next upcoming appointment date, time, location All Clear All Clear All Clear SURVEY INFORMATION Medical/Nurse Reel And Rewinder Operator: Garo Sargent 1. Your discharge instructions are important in guiding you through the recovery process. Is there anything I could help you clarify on your discharge instructions? (Standard Question) No 2. Do you have your follow up appointment related to your hospital stay scheduled within the next 30 days? (Standard Question) Yes 3. Do you have all the necessary equipment and supplies at home? (Standard Question) Yes 4. Many patients have concerns about their medications once they are home. Do you have any questions about getting or taking your medications? (Standard Question) No 5. Do you have any new or different symptoms? (Standard Question) No documented in this encounter [facility] 07-29-2021 Note HNO ID: [id number] Author: Sameera Richter RN Service: Care Management Author Type: Registered Nurse Type: Care Mgt Progress Note Filed: 07/29/2021 11:07 AM Note Text: CARE MANAGEMENT DISCHARGE NOTE SERVICE DATE: 07/29/2021 SERVICE TIME: 11:04 AM LOS: 8 days Admission Date: 07/21/2021 DISCHARGE ARRANGEMENT (list agency and phone number) Discharge Arrangement: Home with Home Health Provider Name: [facility] CAREGIVER ASSESSMENT: Caregiver is ready, willing and able to meet the patient's needs as recommended by the inter-professional team:: Yes Does the patient have an acute stroke diagnosis, or has the patient had a stroke during this admission?: No Patient's transition needs and plan for meeting these needs: Home with skilled home health care and home therapy services HANDOFF COMMUNICATION: Handoff to: Other Caregiver Other Caregiver Name/Phone: [facility]/ Bedside RN to give patient discharge instructions TRANSPORTATION ARRANGEMENTS: Transportation Arrangements: Car Needs Prior to Discharge: Ready for Discharge Discharge today. Discharge orders complete. Plan is home with skilled home health care and home therapy services. [facility] is able to accept patient. [facility] aware of discharge home today. Physician order placed for home care services: Yes. Start of care date: [facility] will reach out to patient to confirm start of care date. Patient/Family agreeable to discharge plan: Yes. Will continue to follow for further DC planning needs. SIGNATURE: Sameera Richter RN PATIENT NAME: Tien Alexandre DATE: July 29, 2021 TIME: 11:04 AM PAGER/CONTACT #: [phone] [facility] 07-29-2021 Note HNO ID: [id number] Author: Denia Bragg APRN.CNP Service: General Surgery Author Type: Nurse Practitioner Type: Progress Notes Filed: 07/29/2021 8:01 AM Note Text: Trauma Surgery Progress Note SERVICE DATE: 07/29/2021 Trauma Service Pager: For questions or concerns Mon-Fri 6a-5p please page [phone]. After 5pm and on Weekends and Holidays, please page [phone] if in ICU or [phone] if on RNF. SUBJECTIVE: NAEON. Patient reporting adequate pain control - discussed need to cut back on oxycodone dose prior to discharge, patient agreeable. Denies SOB. Hopefull to go home today. OBJECTIVE: Vitals: Temp (24hrs), Av.8 ?C (98.2 ?F), Min:36.5 ?C (97.7 ?F), Max:37.2 ?C (99 ?F) BP 149/71 Pulse 78 Temp 36.5 ?C (97.7 ?F) (Oral) Resp 17 Ht 177.8 cm (5' 10 ) Wt 128.7 kg (283 lb 11.7 oz) SpO2 94% BMI 40.71 kg/m? O2 Therapy: Room Air IANDO: Date 07/28/21 0700 - 07/29/21 0659 07/29/21 0700 - 07/30/21 0659 Shift 6999-0758 7853-6453 7088-0083 24 Hour Total 8750-2858 6091-5562 2531-6149 24 Hour Total INTAKE Shift Total OUTPUT Urine Urine Not Saved. 1 x 1 x Shift Total Weight (kg) 128.7 128.7 128.7 128.7 128.7 128.7 128.7 128.7 MEDICATIONS: Current Facility-Administered Medications Medication Dose Route Frequency - apixaban 5 mg tab(s) (ELIQUIS) 5 mg ORAL BID - oxyCODONE IR 5-10 mg tab(s) (ROXICODONE) 5-10 mg ORAL q 4 H PRN - hydrOXYzine HCl 25 mg tab(s) (ATARAX) 25 mg ORAL TID PRN - metoclopramide HCl 10 mg injection (REGLAN) 10 mg INTRAVENOUS q 8 H - bisacodyl 10 mg suppository (DULCOLAX) 10 mg RECTAL DAILY PRN - busPIRone 15 mg tab(s) (BUSPAR) 15 mg ORAL BID - cyclobenzaprine 10 mg tab(s) (FLEXERIL) 10 mg ORAL TID PRN - ipratropium-albuterol 3 mL nebulizer solution (DUONEB) 3 mL INHALATION q 4 H PRN - [MAR Hold due to Transfer] risperiDONE 0.25 mg tab(s) (RisperDAL) 0.25 mg ORAL AT BEDTIME - sodium chloride 0.9 % (flush) 10 mL (BD POSIFLUSH) 10 mL INTRAVENOUS q 12 H - sodium chloride 0.9 % (flush) 20 mL (BD POSIFLUSH) 20 mL INTRAVENOUS PRN - senna-docusate 8.6-50 mg 1 tablet (SENNA-S) 1 tablet ORAL BID - polyethylene glycol 3350 17 g packet (MIRALAX, GLYCOLAX) 17 g ORAL DAILY - metoprolol succinate ER 50 mg tab(s) (TOPROL XL) 50 mg ORAL DAILY - venlafaxine ER 300 mg cap(s) (EFFEXOR XR) 300 mg ORAL DAILY - sodium chloride 0.9 % (flush) 3-5 mL (BD POSIFLUSH) 3-5 mL INTRAVENOUS q 12 H - NaCl 0.9% iv flush bag 20 mL INTRAVENOUS PRN - ondansetron 4 mg tab(s) (ZOFRAN) 4 mg ORAL q 6 H PRN Or - ondansetron (PF) 4 mg injection (ZOFRAN) 4 mg INTRAVENOUS q 6 H PRN - acetaminophen 975 mg tab(s) (TYLENOL) 975 mg ORAL QID - lidocaine 4 % 1 Patch (SALONPAS) 1 Patch TRANSDERMAL DAILY AT 9 PM And - lidocaine patch - REMOVE OTHER DAILY And - lidocaine - VERIFY PATCH OTHER q 8 H - pregabalin 50 mg cap(s) (LYRICA) 50 mg ORAL BID Labs: Recent Labs 07/29/21 0558 07/28/21 0539 07/27/21 0326 NA 135* 139 137 K 4.0 3.7 3.5* CHLOR 98 103 106* CO2 26 27 26 BUN 14 17 19 CREAT 0.91 0.95 0.90 GLUC 104* 103* 100* ANION 11 9 5* CA 8.7 8.6 7.6* MG -- 2.3 2.1 P -- -- 2.4* WBC 7.00 6.56 7.59 HB 12.2* 10.8* 10.4* HCT 36.6* 32.4* 31.6* PLT 298 256 214 PHYSICAL EXAM: Genl: Appears age appropriate. No acute distress. Resting comfortably. Head/Face: Normocephalic. Atraumatic. Eyes: EOMI. Sclera not icteric, not injected Neck: No mid-line masses. C-spine non-tender. Resp: Lung sounds are clear but diminished bilat. No wheezes. No rales. Breathing is non-labored on RA @94%. Left chest tube with serous output, (-) air leak. CVS: RRR as above; 2+ pulses at RA, DP, PT bilat. GI: Abdomen is soft, non-tender, not distended. Bowel sounds normoactive. No peritonitis. MSK: Extremities without clubbing, cyanosis, edema. Normal ROM x 4. Skin: Warm and dry. Not jaundiced. Neuro: AANDOx3. Strength and sensation normal. NG. GCS15. Psych: Normal mood. Normal affect. Appropriate insight into current situation. ASSESSMENT AND PLAN: Active Hospital Problems Diagnosis Date Noted - Multiple rib fractures involving four or more ribs 07/21/2021 - Acute blood loss anemia 07/25/2021 - Ileus (HCC) 07/25/2021 - Fall from ladder 07/22/2021 - Obesity, Class II, BMI 35-39.9 12/13/2020 - PAF (paroxysmal atrial fibrillation) ([facility]) - Anticoagulant long-term use - Mixed hyperlipidemia 65 year old male s/p fall from ladder on Eliquis ? Imaging performed: 1. CT [facility] @ [place] (07/21) 2. CXR, XR L femur (07/21) 3. CXR (07/22) 4. CXR (07/23) 5. CXR (07/24) 6. CXR, KUB (07/25) 7. CXR (07/26) 8. CXR (07/27) 9. CXR (07/28) ? Traumatic Injuries: 1. Left lateral 2-9 rib fractures, posterior 3-9 rib fractures 2. Small (<5%) left pneumothorax ? Operations/Procedures: 1. 07/22/2021 - Left chest tube placed 2. 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 [facility] 07-28-2021 Note HNO ID: [id number] Author: Denia Bragg APRN.EXTRUDER Service: General Surgery Author Type: Nurse Practitioner Type: Plan of Care Filed: 07/28/2021 9:12 AM Note Text: Left chest tube removed on maximal inspiration. Site covered with occlusive dressing. Patient tolerated well. ? 2V CXR ordered for 1pm today. Will obtain sooner if patient develops worsening chest pain or SOB. ? Denia Bragg APRN.CNP 07/28/2021 9:00 AM [facility] 07-28-2021 Note HNO ID: [id number] Author: Denia Bragg APRN.CNP Service: General Surgery Author Type: Nurse Practitioner Type: Progress Notes Filed: 07/28/2021 8:09 AM Note Text: Trauma Surgery Progress Note SERVICE DATE: 07/28/2021 Trauma Service Pager: For questions or concerns Mon-Fri 6a-5p please page [phone]. After 5pm and on Weekends and Holidays, please page [phone] if in ICU or [phone] if on RNF. SUBJECTIVE: NAEON. Patient reports adequate pain control and states breathing treatments are helping him cough up phlegm. He is hopeful for chest tube removal in near future. Tolerating diet, no complaints. OBJECTIVE: Vitals: Temp (24hrs), Av.6 ?C (97.8 ?F), Min:36.3 ?C (97.3 ?F), Max:36.8 ?C (98.2 ?F) BP 135/90 Pulse 74 Temp 36.6 ?C (97.9 ?F) Resp 18 Ht 177.8 cm (5' 10 ) Wt 128.7 kg (283 lb 11.7 oz) SpO2 98% BMI 40.71 kg/m? O2 Therapy: Room Air IANDO: Date 07/27/21699 - 07/28/21 0659 07/28/21 07 - 07/29/21 0659 Shift 1647-4560 1800-5523 8207-5692 24 Hour Total 8751-8559 2222-1261 0324-5338 24 Hour Total INTAKE PO 600 600 PO 600 600 Supplements (mL) 0 0 Shift Total 600 600 OUTPUT Urine Urine Not Saved. 1 x 1 x Chest Tube 38 60 50 148 Chest Tube Output (Chest Tube 07/24/21 Left Lateral Pleural 28 Fr Tube #1) 38 60 50 148 Shift Total 38 60 50 148 Weight (kg) 125.3 125.3 128.7 128.7 128.7 128.7 128.7 128.7 MEDICATIONS: Current Facility-Administered Medications Medication Dose Route Frequency - hydrOXYzine HCl 25 mg tab(s) (ATARAX) 25 mg ORAL TID PRN - enoxaparin 30 mg injection (LOVENOX) 30 mg SUBCUTANEOUS q 12 HR - metoclopramide HCl 10 mg injection (REGLAN) 10 mg INTRAVENOUS q 8 H - bisacodyl 10 mg suppository (DULCOLAX) 10 mg RECTAL DAILY PRN - busPIRone 15 mg tab(s) (BUSPAR) 15 mg ORAL BID - cyclobenzaprine 10 mg tab(s) (FLEXERIL) 10 mg ORAL TID PRN - ipratropium-albuterol 3 mL nebulizer solution (DUONEB) 3 mL INHALATION q 4 H PRN - [MAR Hold due to Transfer] risperiDONE 0.25 mg tab(s) (RisperDAL) 0.25 mg ORAL AT BEDTIME - sodium chloride 0.9 % (flush) 10 mL (BD POSIFLUSH) 10 mL INTRAVENOUS q 12 H - sodium chloride 0.9 % (flush) 20 mL (BD POSIFLUSH) 20 mL INTRAVENOUS PRN - oxyCODONE IR 10-15 mg tab(s) (ROXICODONE) 10-15 mg ORAL q 4 H PRN - senna-docusate 8.6-50 mg 1 tablet (SENNA-S) 1 tablet ORAL BID - polyethylene glycol 3350 17 g packet (MIRALAX, GLYCOLAX) 17 g ORAL DAILY - metoprolol succinate ER 50 mg tab(s) (TOPROL XL) 50 mg ORAL DAILY - venlafaxine ER 300 mg cap(s) (EFFEXOR XR) 300 mg ORAL DAILY - sodium chloride 0.9 % (flush) 3-5 mL (BD POSIFLUSH) 3-5 mL INTRAVENOUS q 12 H - NaCl 0.9% iv flush bag 20 mL INTRAVENOUS PRN - ondansetron 4 mg tab(s) (ZOFRAN) 4 mg ORAL q 6 H PRN Or - ondansetron (PF) 4 mg injection (ZOFRAN) 4 mg INTRAVENOUS q 6 H PRN - acetaminophen 975 mg tab(s) (TYLENOL) 975 mg ORAL QID - lidocaine 4 % 1 Patch (SALONPAS) 1 Patch TRANSDERMAL DAILY AT 9 PM And - lidocaine patch - REMOVE OTHER DAILY And - lidocaine - VERIFY PATCH OTHER q 8 H - pregabalin 50 mg cap(s) (LYRICA) 50 mg ORAL BID Labs: Recent Labs 07/28/21 0539 07/27/21 0326 07/26/21 0259 NA 139 137 134* K 3.7 3.5* 4.6 CHLOR 103 106* 100 CO2 27 26 25 BUN 17 19 24 CREAT 0.95 0.90 1.00 GLUC 103* 100* 130* ANION 9 5* 9 CA 8.6 7.6* 8.6 MG 2.3 2.1 2.4* P -- 2.4* 3.8 WBC 6.56 7.59 9.37 HB 10.8* 10.4* 11.0* HCT 32.4* 31.6* 33.8* PLT 256 214 216 PHYSICAL EXAM: Genl: Appears age appropriate. No acute distress. Resting comfortably. Head/Face: Normocephalic. Atraumatic. Eyes: EOMI. Sclera not icteric, not injected Neck: No mid-line masses. C-spine non-tender. Resp: Lung sounds are clear but diminished bilat. No wheezes. No rales. Breathing is non-labored on RA @96%. Left chest tube with serous output, (-) air leak. CVS: RRR as above; 2+ pulses at RA, DP, PT bilat. GI: Abdomen is soft, non-tender, not distended. Bowel sounds normoactive. No peritonitis. MSK: Extremities without clubbing, cyanosis, edema. Normal ROM x 4. Skin: Warm and dry. Not jaundiced. Neuro: AANDOx3. Strength and sensation normal. NG. GCS15. Psych: Normal mood. Normal affect. Appropriate insight into current situation. ASSESSMENT AND PLAN: Active Hospital Problems Diagnosis Date Noted - Multiple rib fractures involving four or more ribs 07/21/2021 - Acute blood loss anemia 07/25/2021 - Ileus (HCC) 07/25/2021 - Fall from ladder 07/22/2021 - Obesity, Class II, BMI 35-39.9 12/13/2020 - PAF (paroxysmal atrial fibrillation) (HCC) - Anticoagulant long-term use - Mixed hyperlipidemia 65 year old male s/p fall from ladder on Eliquis ? Imaging performed: 1. CT [facility] @ [place] (07/21) 2. CXR, XR L femur (07/21) 3. CXR (07/22) 4. CXR (07/23) 5. CXR (07/24) 6. CXR, KUB (07/25) 7. CXR (07/26) 8. CXR (07/27) 9. CXR (07/28) ? Traumatic Injuries: 1. Left lateral 2-9 rib fractures, posterior 3-9 rib fractures 2. Small (<5%) le (more content not included)... [facility] 07-27-2021 Note HNO ID: [id number] Author: Sameera Richter RN Service: Care Management Author Type: Registered Nurse Type: Care Mgt Progress Note Filed: 07/27/2021 7:52 AM Note Text: CARE MANAGEMENT PROGRESS NOTE SERVICE DATE: 07/27/2021 SERVICE TIME: 7:44 AM LOS: 6 days Care Coordination Summary: Situation: Patient transferred from the MICU. S/p fall from ladder. Left 2-9 rib fx in 2 places, pneumothorax. Left chest tube in place. Currently on 2 liters of oxygen. PT/OT recommend home therapy. DC Disposition: Spoke with patient and patient's spouse. Explained care management role. Emotional support provided. Patient independent at home with his spouse prior to admission. Patient and patient's family are hopeful for him to return home once medically stable. Discussed therapy recommendations for home therapy. Patient in agreement. Patient declined need for HHC choice list and is okay with us arranging HHC through a provider that can take his insurance. No preference. [facility] notified and is able to accept patient. HHC order complete. Patient has a good support system in place and patient's family is willing/ able to care for him as needed at discharge. Will continue to follow clinical course for further DC planning needs. Anticipated DC Date: To be determined. DC Transportation: Patient's family will provide transportation at discharge. Patient/Family agreeable with DC plan: Yes. SIGNATURE: Sameera Richter RN PATIENT NAME: Tien Alexandre DATE: July 27, 2021 TIME: 7:44 AM PAGER/CONTACT #: [phone] [facility] 07-27-2021 Note HNO ID: [id number] Author: Asaf Ortega DO Service: General Surgery Author Type: Resident Type: Progress Notes Filed: 07/27/2021 6:39 AM Note Text: Attestation signed by Kg Coley MD at 07/27/2021 5:12 PM Attending Note I personally saw and examined the patient. I reviewed the resident's note. I agree with the resident's assessment and plan unless otherwise noted. Signature: Kg Coley MD Date: 07/27/2021 Time: 5:12 PM Trauma Surgery Progress Note SERVICE DATE: 07/27/2021 Trauma Service Pager: For questions or concerns Mon-Sun 6a-5p please page [phone]. After 5pm and on Weekends and Holidays, please page [phone] if in ICU or [phone] if on RNF. SUBJECTIVE: NAEON. Admits to a cough, pain control is improved. Ambulating independently, tolerating DIET LIQUID and having bowel function. OBJECTIVE: Vitals: Temp (24hrs), Av.7 ?C (98 ?F), Min:36.3 ?C (97.3 ?F), Max:37.5 ?C (99.5 ?F) BP 124/76 Pulse 75 Temp 36.4 ?C (97.5 ?F) (Oral) Resp 20 Ht 177.8 cm (5' 10 ) Wt 125.3 kg (276 lb 3.8 oz) SpO2 98% BMI 39.64 kg/m? O2 Therapy: Nasal Cannula IANDO: Date 07/26/21699 - 07/27/2165807/27/21699 - 07/28/21 0659 Shift 7358-1053 6754-6526 0939-0286 24 Hour Total 6123-8407 1149-8416 6743-4036 24 Hour Total INTAKE PO 250 240 490 PO 250 240 490 Supplements (mL) 0 0 Shift Total 250 240 490 OUTPUT Urine 450 450 Urine Not Saved. 1 x 1 x 2 x Output ([REMOVED] Indwelling Urinary Catheter 07/24/21 Coude 18 Fr 07/26/21808) 450 450 Chest Tube 250 100 66 416 Chest Tube Output (Chest Tube 07/24/21 Left Lateral Pleural 28 Fr Tube #1) 250 100 66 416 # of BMs Number of BMs 2 x 1 x 3 x Shift Total 700 100 66 866 Weight (kg) 123.4 123.4 125.3 125.3 125.3 125.3 125.3 125.3 MEDICATIONS: Current Facility-Administered Medications Medication Dose Route Frequency - hydrOXYzine HCl 25 mg tab(s) (ATARAX) 25 mg ORAL TID PRN - enoxaparin 30 mg injection (LOVENOX) 30 mg SUBCUTANEOUS q 12 HR - metoclopramide HCl 10 mg injection (REGLAN) 10 mg INTRAVENOUS q 8 H - bisacodyl 10 mg suppository (DULCOLAX) 10 mg RECTAL DAILY PRN - busPIRone 15 mg tab(s) (BUSPAR) 15 mg ORAL BID - HYDROmorphone (PF) 0.5 mg injection (DILAUDID) 0.5 mg INTRAVENOUS q 4 H PRN - cyclobenzaprine 10 mg tab(s) (FLEXERIL) 10 mg ORAL TID PRN - ipratropium-albuterol 3 mL nebulizer solution (DUONEB) 3 mL INHALATION q 4 H PRN - [MAR Hold due to Transfer] risperiDONE 0.25 mg tab(s) (RisperDAL) 0.25 mg ORAL AT BEDTIME - sodium chloride 0.9 % (flush) 10 mL (BD POSIFLUSH) 10 mL INTRAVENOUS q 12 H - sodium chloride 0.9 % (flush) 20 mL (BD POSIFLUSH) 20 mL INTRAVENOUS PRN - oxyCODONE IR 10-15 mg tab(s) (ROXICODONE) 10-15 mg ORAL q 4 H PRN - potassium chloride ER 20-40 mEq tab(s) (K-DUR, KLOR-CON) 20-40 mEq ORAL/FEEDING TUBE PRN Or - potassium chloride iv piggyback 20 mEq/100 mL 20 mEq INTRAVENOUS PRN - magnesium sulfate 2 g in sterile water 50 ml 2 g INTRAVENOUS PRN - phosphorus 500 mg tab(s) (K PHOS NEUTRAL) 500 mg ORAL/FEEDING TUBE PRN(NO DISPENSE) - senna-docusate 8.6-50 mg 1 tablet (SENNA-S) 1 tablet ORAL BID - polyethylene glycol 3350 17 g packet (MIRALAX, GLYCOLAX) 17 g ORAL DAILY - metoprolol succinate ER 50 mg tab(s) (TOPROL XL) 50 mg ORAL DAILY - venlafaxine ER 300 mg cap(s) (EFFEXOR XR) 300 mg ORAL DAILY - sodium chloride 0.9 % (flush) 3-5 mL (BD POSIFLUSH) 3-5 mL INTRAVENOUS q 12 H - NaCl 0.9% iv flush bag 20 mL INTRAVENOUS PRN - ondansetron 4 mg tab(s) (ZOFRAN) 4 mg ORAL q 6 H PRN Or - ondansetron (PF) 4 mg injection (ZOFRAN) 4 mg INTRAVENOUS q 6 H PRN - acetaminophen 975 mg tab(s) (TYLENOL) 975 mg ORAL QID - lidocaine 4 % 1 Patch (SALONPAS) 1 Patch TRANSDERMAL DAILY AT 9 PM And - lidocaine patch - REMOVE OTHER DAILY And - lidocaine - VERIFY PATCH OTHER q 8 H - pregabalin 50 mg cap(s) (LYRICA) 50 mg ORAL BID Labs: Recent Labs 07/27/21 0326 07/26/21 0259 NA 137 134* K 3.5* 4.6 CHLOR 106* 100 CO2 26 25 BUN 19 24 CREAT 0.90 1.00 GLUC 100* 130* ANION 5* 9 CA 7.6* 8.6 MG 2.1 2.4* P 2.4* 3.8 WBC 7.59 9.37 HB 10.4* 11.0* HCT 31.6* 33.8* PLT 214 216 PHYSICAL EXAM: General: NAD, pleasant HEENT: Atraumatic, normocephalic Neck: trachea midline, no JVD Chest/Respiratory: Symmetric chest rise, unlabored breathing, CT water sealed in place with serosanguinous fluid, no obvious air leak. Incision clean dry intact with skin glue, partially occluding by chest tube dressing. Cardiovascular: Regular rate as above Abdomen: Some mild distension, soft abdomen, no TTP Extremities: Extremities without obvious bony deformities Neuro: CN II-XII grossly intact, no motor or sensory deficits Psych: normal mood and affect ASSESSMENT AND PLAN: Active Hospital Pr (more content not included)... [facility] 07-26-2021 Note HNO ID: [id number] Author: Jordi Roper MD Service: General Surgery Author Type: Resident Type: Progress Notes Filed: 07/26/2021 6:58 AM Note Text: Attestation signed by Kg Coley MD at 07/26/2021 3:12 PM I personally saw and examined the patient on 07/26/21. I reviewed the resident's note. I agree with the resident's assessment and plan unless otherwise noted. Kg Coley MD Trauma Surgery Progress Note SERVICE DATE: 07/26/2021 Trauma Service Pager: For questions or concerns Mon-Fri 6a-5p please page [phone]. After 5pm and on Weekends and Holidays, please page [phone] if in ICU or [phone] if on RNF. SUBJECTIVE: The patient with episode of anxiety overnight which was relieved with PRN anxiety medication. He states that he had normal bowel movement which made him feel much better. The patient would like to have his muse removed. The patient states that his pain is well controlled. He denies any new symptoms such as chest pain, abdominal pain, nausea, and new numbness/tingling. He has no other complaints at this time. OBJECTIVE: Vitals: Temp (24hrs), Av.3 ?C (99.1 ?F), Min:37 ?C (98.6 ?F), Max:37.7 ?C (99.86 ?F) BP 130/81 Pulse 86 Temp 37 ?C (98.6 ?F) (Oral) Resp 16 Ht 177.8 cm (5' 10 ) Wt 123.4 kg (272 lb 0.8 oz) SpO2 94% BMI 39.03 kg/m? O2 Therapy: Nasal Cannula IANDO: Date 07/25/21 07 - 07/26/21 0659 07/26/21 07 - 07/27/21 0659 Shift 5432-3710 2663-7770 2449-0811 24 Hour Total 0382-4054 0174-9649 2081-2244 24 Hour Total INTAKE PO 470 200 670 PO 470 200 670 IV 222 218 5768 Volume (mL) (potassium phosphate 45 mmol in NaCl 0.9% 500 mL) 260 260 Volume (mL) (calcium gluconate 4 g in NaCl 0.9% 250 mL) 250 250 Volume (mL) (NaCl 0.9% iv infusion) 670 210 880 Shift Total 5100 787 6059 OUTPUT Urine 350 610 960 Output ( Indwelling Urinary Catheter 07/24/21 Coude 18 Fr) 350 610 960 Chest Tube 185 185 Chest Tube Output (Chest Tube 07/24/21 Left Lateral Pleural 28 Fr Tube #1) 185 185 Shift Total 374 435 7923 Weight (kg) 123.4 123.4 123.4 123.4 123.4 123.4 123.4 123.4 MEDICATIONS: Current Facility-Administered Medications Medication Dose Route Frequency - enoxaparin 30 mg injection (LOVENOX) 30 mg SUBCUTANEOUS q 12 HR - metoclopramide HCl 10 mg injection (REGLAN) 10 mg INTRAVENOUS q 8 H - bisacodyl 10 mg suppository (DULCOLAX) 10 mg RECTAL DAILY PRN - sodium phosphate 45 mmol in D5W 250 mL 45 mmol INTRAVENOUS ONCE - busPIRone 15 mg tab(s) (BUSPAR) 15 mg ORAL BID - HYDROmorphone (PF) 0.5 mg injection (DILAUDID) 0.5 mg INTRAVENOUS q 4 H PRN - cyclobenzaprine 10 mg tab(s) (FLEXERIL) 10 mg ORAL TID PRN - ipratropium-albuterol 3 mL nebulizer solution (DUONEB) 3 mL INHALATION q 4 H PRN - [MAR Hold due to Transfer] risperiDONE 0.25 mg tab(s) (RisperDAL) 0.25 mg ORAL AT BEDTIME - sodium chloride 0.9 % (flush) 10 mL (BD POSIFLUSH) 10 mL INTRAVENOUS q 12 H - sodium chloride 0.9 % (flush) 20 mL (BD POSIFLUSH) 20 mL INTRAVENOUS PRN - NaCl 0.9% iv infusion 100 mL/hr INTRAVENOUS CONTINUOUS - oxyCODONE IR 10-15 mg tab(s) (ROXICODONE) 10-15 mg ORAL q 4 H PRN - potassium chloride ER 20-40 mEq tab(s) (K-DUR, KLOR-CON) 20-40 mEq ORAL/FEEDING TUBE PRN Or - potassium chloride iv piggyback 20 mEq/100 mL 20 mEq INTRAVENOUS PRN - magnesium sulfate 2 g in sterile water 50 ml 2 g INTRAVENOUS PRN - phosphorus 500 mg tab(s) (K PHOS NEUTRAL) 500 mg ORAL/FEEDING TUBE PRN(NO DISPENSE) - senna-docusate 8.6-50 mg 1 tablet (SENNA-S) 1 tablet ORAL BID - polyethylene glycol 3350 17 g packet (MIRALAX, GLYCOLAX) 17 g ORAL DAILY - metoprolol succinate ER 50 mg tab(s) (TOPROL XL) 50 mg ORAL DAILY - venlafaxine ER 300 mg cap(s) (EFFEXOR XR) 300 mg ORAL DAILY - sodium chloride 0.9 % (flush) 3-5 mL (BD POSIFLUSH) 3-5 mL INTRAVENOUS q 12 H - NaCl 0.9% iv flush bag 20 mL INTRAVENOUS PRN - ondansetron 4 mg tab(s) (ZOFRAN) 4 mg ORAL q 6 H PRN Or - ondansetron (PF) 4 mg injection (ZOFRAN) 4 mg INTRAVENOUS q 6 H PRN - acetaminophen 975 mg tab(s) (TYLENOL) 975 mg ORAL QID - lidocaine 4 % 1 Patch (SALONPAS) 1 Patch TRANSDERMAL DAILY AT 9 PM And - lidocaine patch - REMOVE OTHER DAILY And - lidocaine - VERIFY PATCH OTHER q 8 H - pregabalin 50 mg cap(s) (LYRICA) 50 mg ORAL BID Labs: Recent Labs 07/26/21 0259 07/25/21 0415 07/24/21 0425 07/24/21 0048 07/23/21201707/23/21180307/23/211802 NA 134* 136 < > -- -- -- 134* K 4.6 4.7 < > -- -- -- 4.6 CHLOR 100 101 < > -- -- -- 99 CO2 25 26 < > -- -- -- 27 BUN 24 25* < > -- -- -- 39* CREAT 1.00 1.09 < > -- -- -- 1.61* GLUC 130* 132* < > -- -- -- 121* ANION 9 9 < > -- -- -- 8* CA 8.6 8.7 < > -- -- -- 9.1 MG 2.4* 2.3 < > -- -- -- -- P 3.8 2.9 < > -- -- -- -- WBC 9.37 11.20* < > -- -- < > -- HB 11.0* 1 (more content not included)... [facility] 07-25-2021 Note HNO ID: [id number] Author: Anitha Quinones [facility] Service: Pharmacy Author Type: Pharmacist Type: Plan of Care Filed: 07/26/2021 8:27 AM Note Text: Patient Name:Niko Alexandre : 1955 Reconciliation: Yes All MEASUREMENT SUPERINTENDENT medications addressed by LIP Additional comments: see below. Buspirone BID, not daily; hydroxyzine 25mg, not 100mg and TID PRN, not QHS prn. Risperidone 0.25mg/qhs added. Allergies: ALLERGIES Allergen Reactions - Codeine Vomiting Preferred Pharmacy: e- [id number] [place] [address] - [address] [facility] - [phone] Current MEASUREMENT SUPERINTENDENT Medications: Prior to Admission medications as of 07/22/21 0408 Medication Sig Last Dose Taking risperiDONE (RISPERDAL) 0.25 mg tablet Take 0.25 mg by mouth daily at bedtime. Yes metoprolol succinate ER (TOPROL XL) 50 mg 24 hr tablet Take 50 mg by mouth once daily. Yes venlafaxine ER (EFFEXOR XR) 150 mg 24 hr capsule Take 300 mg by mouth once daily. Yes busPIRone (BUSPAR) 15 mg tablet Take 15 mg by mouth twice daily. Yes apixaban (ELIQUIS) 5 mg tab(s) Take 5 mg by mouth twice daily. Yes hydrOXYzine pamoate (VISTARIL) 25 mg capsule Take 25 mg by mouth three times daily as needed. Yes rosuvastatin (CRESTOR) 10 mg tablet Take 10 mg by mouth once daily. Yes Anitha Quinones [facility] July 26, 2021 8:26 AM PHARMACY MEDICATION REVIEW Patient Name: Tien Alexandre : 1955 The following medications were updated within the MEASUREMENT SUPERINTENDENT medication list: Medications ADDED to MEASUREMENT SUPERINTENDENT medication list hydrOXYzine pamoate (VISTARIL) 25 mg capsule OTHER Yes Yes Sig: Take 25 mg by mouth three times daily as needed. Pharmacy reports TID PRN Medications CHANGED on MEASUREMENT SUPERINTENDENT medication list busPIRone (BUSPAR) 15 mg tablet OTHER Yes Yes Sig: Take 15 mg by mouth twice daily. Pharmacy reports BID Pharmacy reports TID PRN Medications REMOVED from MEASUREMENT SUPERINTENDENT medication list ? na Additional comments: I did not talk with pt. about his medications. I found seven medications via [employer] e-scripts and [facility] confirmed these seven medications. [facility] reported Buspar dosing schedule as 15mg BID and hydroxyzine dosing schedule as 25mg TID PRN. Hydroxyzine was last filled on 05/03/2021 so the pt. may be out of medication. Buspar was last filled on 04/24/2021 for 90ds. Risperdal was added to the MEASUREMENT SUPERINTENDENT list and filled on 05/03/2021 for 90ds. Required follow up actions for nursing; Please verify MEASUREMENT SUPERINTENDENT medications, when possible, with pt. or family. Also verify pharmacy. The below information represents the best possible medication history: Yes Medication history completed by: Etl Analyst Developer: Aurelio Sierra (Tank Crewmember) Source of history: Pharmacy records: [facility]script [facility] [phone] Medication nonadherence identified: Unable to assess Reconciliation completed: No, pharmacist not yet reviewed Patient interested in Bedside Delivery Services or using OP Pharmacy at discharge? Unable to assess Preferred outpatient pharmacy: e- [facility] [address] - [address] [facility] [phone] Allergies: Codeine Vomiting Prior to Admission Medications Prescriptions Last Dose Informant Patient Reported? Taking? apixaban (ELIQUIS) 5 mg tab(s) OTHER Yes Yes Sig: Take 5 mg by mouth twice daily. busPIRone (BUSPAR) 15 mg tablet OTHER Yes Yes Sig: Take 15 mg by mouth twice daily. hydrOXYzine pamoate (VISTARIL) 25 mg capsule OTHER Yes Yes Sig: Take 25 mg by mouth three times daily as needed. metoprolol succinate ER (TOPROL XL) 50 mg 24 hr tablet OTHER Yes Yes Sig: Take 50 mg by mouth once daily. risperiDONE (RISPERDAL) 0.25 mg tablet OTHER Yes Yes Sig: Take 0.25 mg by mouth daily at bedtime. rosuvastatin (CRESTOR) 10 mg tablet OTHER Yes Yes Sig: Take 10 mg by mouth once daily. venlafaxine ER (EFFEXOR XR) 150 mg 24 hr capsule OTHER Yes Yes Sig: Take 300 mg by mouth once daily. Facility-Administered Medications: None Aurelio Sierra ([email or web address]) phone [phone] 07/25/2021 [facility] 07-25-2021 Note HNO ID: [id number] Author: Edilma Conrad RN Service: Care Management Author Type: Registered Nurse Type: Care Mgt Progress Note Filed: 07/25/2021 12:42 PM Note Text: CARE MANAGEMENT PROGRESS NOTE SERVICE DATE: 07/25/2021 SERVICE TIME: 12:41 PM LOS: 4 days Needs Prior to Discharge: To Be Determined DC plan: Home with [facility] Dc date: TBD Sun/? Barrier: Chest tube. Pain [facility] referral requested today. Anticipate SN, PT/OT. Possible wound care for surgical site and chest tube site- once removed. SIGNATURE: Edilma Conrad RN PATIENT NAME: Tien Alexandre DATE: July 25, 2021 TIME: 12:41 PM PAGER/CONTACT #: [phone] [facility] documented as of this encounter (statuses as of 08/02/2021) [facility]05-23-2022 History of Past illness Narrative* Problem Noted Date Resolved Date Acute blood loss anemia 07/25/2021 07/30/19 22 Ileus 07/25/2021 07/29/2021 Fall from ladder 07/22/2021 07/29/2021 documented as of this encounter (statuses as of 08/11/2021) [facility]05-23-2022 History of Past illness Narrative* Problem Noted Date Resolved Date Acute blood loss anemia 07/25/2021 07/30/19 22 Ileus 07/25/2021 07/29/2021 Fall from ladder 07/22/2021 07/29/2021 documented as of this encounter (statuses as of 08/12/2021) [facility]05-23-2022 History of Past illness Narrative* Problem Noted Date Resolved Date Acute blood loss anemia 07/25/2021 07/30/19 22 Ileus 07/25/2021 07/29/2021 Fall from ladder 07/22/2021 07/29/2021 documented as of this encounter (statuses as of 11/09/2021) [facility]05-23-2022 History of Past illness Narrative* Problem Noted Date Resolved Date Acute blood loss anemia 07/25/2021 07/30/19 22 Ileus 07/25/2021 07/29/2021 Fall from ladder 07/22/2021 07/29/2021 documented as of this encounter (statuses as of 11/10/2021) [facility]05-23-2022 NoteHNO ID: [id number] Author: Alexandro Brantley MD Service: General Surgery Author Type: Physician Type: Progress Notes Filed: 07/25/2021 11:35 AM Note Text: INPATIENT SICU PROGRESS NOTE SICU Service Pager: For questions or concerns Mon-Fri 6a-5p please page [phone]. After 5pm and on Weekends and Holidays, please page [phone]. Subjective Subjective: S/p rib plating yesterday. Sitting up on side of bed this am. Pain well controlled. On 2L NC, does not feel short of breath. Has not had a bowel movement since admission and is not passing flatus. No nausea or vomiting. Current Facility-Administered Medications Medication Dose Route Frequency - busPIRone 15 mg tab(s) (BUSPAR) 15 mg ORAL DAILY - metoprolol succinate ER 50 mg tab(s) (TOPROL XL) 50 mg ORAL DAILY - venlafaxine ER 300 mg cap(s) (EFFEXOR XR) 300 mg ORAL DAILY - sodium chloride 0.9 % (flush) 3-5 mL (BD POSIFLUSH) 3-5 mL INTRAVENOUS q 12 H - NaCl 0.9% iv flush bag 20 mL INTRAVENOUS PRN - ondansetron 4 mg tab(s) (ZOFRAN) 4 mg ORAL q 6 H PRN Or - ondansetron (PF) 4 mg injection (ZOFRAN) 4 mg INTRAVENOUS q 6 H PRN - acetaminophen 975 mg tab(s) (TYLENOL) 975 mg ORAL QID - lidocaine 4 % 1 Patch (SALONPAS) 1 Patch TRANSDERMAL DAILY AT 9 PM And - lidocaine patch - REMOVE OTHER DAILY And - lidocaine - VERIFY PATCH OTHER q 8 H - pregabalin 50 mg cap(s) (LYRICA) 50 mg ORAL BID - cyclobenzaprine 10 mg tab(s) (FLEXERIL) 10 mg ORAL TID - senna-docusate 8.6-50 mg 1 tablet (SENNA-S) 1 tablet ORAL BID - polyethylene glycol 3350 17 g packet (MIRALAX, GLYCOLAX) 17 g ORAL DAILY - HYDROmorphone 1 mg injection (DILAUDID) 1 mg INTRAVENOUS q 2 H PRN - NaCl 0.9% iv infusion 100 mL/hr INTRAVENOUS CONTINUOUS - oxyCODONE IR 10-15 mg tab(s) (ROXICODONE) 10-15 mg ORAL q 4 H PRN - ipratropium-albuterol 3 mL nebulizer solution (DUONEB) 3 mL INHALATION q 4 H while awake - potassium chloride ER 20-40 mEq tab(s) (K-DUR, KLOR-CON) 20-40 mEq ORAL/FEEDING TUBE PRN Or - potassium chloride iv piggyback 20 mEq/100 mL 20 mEq INTRAVENOUS PRN - magnesium sulfate 2 g in sterile water 50 ml 2 g INTRAVENOUS PRN - phosphorus 500 mg tab(s) (K PHOS NEUTRAL) 500 mg ORAL/FEEDING TUBE PRN(NO DISPENSE) - calcium gluconate 4 g in NaCl 0.9% 250 mL 4 g INTRAVENOUS PRN - sodium chloride 0.9 % (flush) 10 mL (BD POSIFLUSH) 10 mL INTRAVENOUS q 12 H - sodium chloride 0.9 % (flush) 20 mL (BD POSIFLUSH) 20 mL INTRAVENOUS PRN Objective VITAL SIGNS BP 130/72 Pulse 78 Temp (Src) 99.5 (Axillary) Resp 17 Ht 5' 10 (1.78m) Wt 272 lb 0.8 oz (123.4kg) SpO2 98% BMI 39.03 kg/(m2). O2 Therapy: Nasal Cannula, Liters: 2 Temp (24hrs), Av.9 ?C (98.5 ?F), Min:35.4 ?C (95.7 ?F), Max:37.6 ?C (99.68 ?F) Date 07/24/21 07 - 07/25/21 0659 07/25/21 0700 - 07/26/21 0659 Shift 5153-6531 8562-8413 1077-8375 24 Hour Total 0236-6998 7351-2378 6743-0010 24 Hour Total INTAKE IV 2403 1112 3515 Volume (mL) (ceFAZolin 3 g in D5W 100 mL (ANCEF)) 200 200 Volume (mL) (NaCl 0.9% iv infusion) 203 1112 1315 Volume (mL) (lactated ringers iv infusion) 1000 1000 Volume (mL) (NaCl 0.9% iv infusion) 1000 1000 Shift Total 2403 1112 3515 OUTPUT Urine 700 434 634 4608 Void (ml) 350 350 OR Urine Output 350 350 Output ( Indwelling Urinary Catheter 07/24/21 Coude 18 Fr) 015 822 1480 Chest Tube 5 73 109 187 Chest Tube Output ([REMOVED] Chest Tube 07/22/21 1600 Left Lateral Pleural 24 Fr Tube #1 07/24/21 1025) 5 5 Chest Tube Output (Chest Tube 07/24/21 Left Lateral Pleural 28 Fr Tube #1) 73 109 182 # of BMs Number of BMs 0 x 0 x Shift Total 589 541 9443 2332 Weight (kg) 123.4 123.4 123.4 123.4 123.4 123.4 123.4 123.4 PHYSICAL EXAM: GENERAL: No distress, alert, cooperative NEURO: AANDOx3, CN II-XII grossly intact HEENT: normocephalic, atraumatic LUNGS: Unlabored breathing on [address] at -20 suction w/ SS output no airleak, tidaling CARDIAC: Regular rate and rhythm as above ABDOMEN: distended, moderately firm, non-tender EXTREMITIES: NG, No deformities SKIN: Skin color, texture, turgor normal, No rashes or lesions DATA: Diagnostic tests reviewed for today's visit: Recent Labs 07/24/21 0048 07/23/212017 PH 7.33* 7.33* PCO2 51* 52* PO2 89 115* BE -- 0 HCO3 26 27* CO2CT 24 24 O2HB 94* 95 COHB 2.0 2.0 MHGB <1.0 <1.0 PHTC 7.33* -- PCO2T 50* -- PO2T 87 -- Recent Labs 07/25/21 0415 07/24/21 0425 07/23/21 1804 07/23/21 1803 07/23/21 0351 CREAT 1.09 1.37* -- 1.61* 1.27* BUN 25* 34* -- 39* 30* NA 136 136 -- 134* 137 K 4.7 4.6 -- 4.6 4.8 CHLOR 101 100 -- 99 99 CO2 26 28 -- 27 29 ANION 9 8* -- 8* 9 GLUC 132* 117* -- 121* 129* CA 8.7 8.7 -- 9.1 9.2 P 2.9 3.6 -- -- -- MG 2.3 2.2 -- -- -- WBC 11.20* 7.84 10.42 -- 10.33 HB 11.5* 12.0* 13.2 -- 13.7 HCT 34.3* 37.5* 39.6 -- 41.6 PLT 210 185 223 -- 230 Assessment/Plan ACTIVE PROBLEM LIST Paf (Paroxysmal Atrial Fibrillation) (Hcc) Rbbb (more content not included)...[facility]05-23-2022 Note HNO ID: [id number] Author: Sepideh Ornelas MD Service: General Surgery Author Type: Physician Type: Progress Notes Filed: 07/25/2021 5:11 PM Note Text: Trauma Surgery Progress Note SERVICE DATE: 07/25/2021 Trauma Service Pager: For questions or concerns Mon-Fri 6a-5p please page [phone]. After 5pm and on Weekends and Holidays, please page [phone] if in ICU or [phone] if on RNF. SUBJECTIVE: No acute events recorded in chart overnight. The patient states that he feels anxious and that he takes medications for anxiety at baseline at home. He also complains of productive cough. He says that IS and coughing makes it easier for him to breath. He denies any other complaints such as abdominal pain, numbness/tingling, fevers, chills, and N/V. He has left sided chest pain near site of CT. He denies any other complaints at this time. OBJECTIVE: Vitals: Temp (24hrs), Av.9 ?C (98.4 ?F), Min:35.4 ?C (95.7 ?F), Max:37.5 ?C (99.5 ?F) BP 135/80 Pulse 79 Temp 37.5 ?C (99.5 ?F) Resp 19 Ht 177.8 cm (5' 10 ) Wt 123.4 kg (272 lb 0.8 oz) SpO2 99% BMI 39.03 kg/m? O2 Therapy: Nasal Cannula IANDO: Date 07/24/21699 - 07/25/21 0659 07/25/21 07 - 07/26/21 0659 Shift 6067-5127 5077-7538 1210-7199 24 Hour Total 3927-3215 5554-8883 6658-5041 24 Hour Total INTAKE IV 2403 1112 3515 Volume (mL) (ceFAZolin 3 g in D5W 100 mL (ANCEF)) 200 200 Volume (mL) (NaCl 0.9% iv infusion) 203 1112 1315 Volume (mL) (lactated ringers iv infusion) 1000 1000 Volume (mL) (NaCl 0.9% iv infusion) 1000 1000 Shift Total 2403 1112 3515 OUTPUT Urine 700 292 546 9154 Void (ml) 350 350 OR Urine Output 350 350 Output ( Indwelling Urinary Catheter 07/24/21 Coude 18 Fr) 142 511 2891 Chest Tube 5 73 109 187 Chest Tube Output ([REMOVED] Chest Tube 07/22/21 1600 Left Lateral Pleural 24 Fr Tube #1 07/24/21 1025) 5 5 Chest Tube Output (Chest Tube 07/24/21 Left Lateral Pleural 28 Fr Tube #1) 73 109 182 # of BMs Number of BMs 0 x 0 x Shift Total 045 186 6745 2332 Weight (kg) 123.4 123.4 123.4 123.4 123.4 123.4 123.4 123.4 MEDICATIONS: Current Facility-Administered Medications Medication Dose Route Frequency - sodium chloride 0.9 % (flush) 10 mL (BD POSIFLUSH) 10 mL INTRAVENOUS q 12 H - sodium chloride 0.9 % (flush) 20 mL (BD POSIFLUSH) 20 mL INTRAVENOUS PRN - NaCl 0.9% iv infusion 100 mL/hr INTRAVENOUS CONTINUOUS - oxyCODONE IR 10-15 mg tab(s) (ROXICODONE) 10-15 mg ORAL q 4 H PRN - ipratropium-albuterol 3 mL nebulizer solution (DUONEB) 3 mL INHALATION q 4 H while awake - potassium chloride ER 20-40 mEq tab(s) (K-DUR, KLOR-CON) 20-40 mEq ORAL/FEEDING TUBE PRN Or - potassium chloride iv piggyback 20 mEq/100 mL 20 mEq INTRAVENOUS PRN - magnesium sulfate 2 g in sterile water 50 ml 2 g INTRAVENOUS PRN - phosphorus 500 mg tab(s) (K PHOS NEUTRAL) 500 mg ORAL/FEEDING TUBE PRN(NO DISPENSE) - calcium gluconate 4 g in NaCl 0.9% 250 mL 4 g INTRAVENOUS PRN - cyclobenzaprine 10 mg tab(s) (FLEXERIL) 10 mg ORAL TID - senna-docusate 8.6-50 mg 1 tablet (SENNA-S) 1 tablet ORAL BID - polyethylene glycol 3350 17 g packet (MIRALAX, GLYCOLAX) 17 g ORAL DAILY - HYDROmorphone 1 mg injection (DILAUDID) 1 mg INTRAVENOUS q 2 H PRN - busPIRone 15 mg tab(s) (BUSPAR) 15 mg ORAL DAILY - metoprolol succinate ER 50 mg tab(s) (TOPROL XL) 50 mg ORAL DAILY - venlafaxine ER 300 mg cap(s) (EFFEXOR XR) 300 mg ORAL DAILY - sodium chloride 0.9 % (flush) 3-5 mL (BD POSIFLUSH) 3-5 mL INTRAVENOUS q 12 H - NaCl 0.9% iv flush bag 20 mL INTRAVENOUS PRN - ondansetron 4 mg tab(s) (ZOFRAN) 4 mg ORAL q 6 H PRN Or - ondansetron (PF) 4 mg injection (ZOFRAN) 4 mg INTRAVENOUS q 6 H PRN - acetaminophen 975 mg tab(s) (TYLENOL) 975 mg ORAL QID - lidocaine 4 % 1 Patch (SALONPAS) 1 Patch TRANSDERMAL DAILY AT 9 PM And - lidocaine patch - REMOVE OTHER DAILY And - lidocaine - VERIFY PATCH OTHER q 8 H - pregabalin 50 mg cap(s) (LYRICA) 50 mg ORAL BID Labs: Recent Labs 07/25/21 0415 07/24/21 0425 07/24/21 0048 07/23/21201707/23/21 18007/23/21 180 NA 136 136 -- -- -- 134* K 4.7 4.6 -- -- -- 4.6 CHLOR 101 100 -- -- -- 99 CO2 26 28 -- -- -- 27 BUN 25* 34* -- -- -- 39* CREAT 1.09 1.37* -- -- -- 1.61* GLUC 132* 117* -- -- -- 121* ANION 9 8* -- -- -- 8* CA 8.7 8.7 -- -- -- 9.1 MG 2.3 2.2 -- -- -- -- P 2.9 3.6 -- -- -- -- WBC 11.20* 7.84 -- -- < > -- HB 11.5* 12.0* -- -- < > -- HCT 34.3* 37.5* -- -- < > -- PLT 210 185 -- -- < > -- INR -- -- -- -- -- 1.0 PH -- -- 7.33* 7.33* -- -- PCO2 -- -- 51* 52* -- -- PO2 -- -- 89 115* -- -- BE -- -- -- 0 -- -- HCO3 -- -- 26 27* -- -- < > = values in this interval not displayed. PHYSICAL EXAM: General: Pt is alert, answers questions approprietly, cooperative throughout exam/interview, no acute distress HEENT: Atraumatic, normocephalic Chest/Respiratory: Symmetric chest rise, unlabored breathing. Left chest tube in place without obvious air (more content not included)...[facility]05-22-2022 NoteHNO ID: [id number] Author: Howard Hunt APRN.CRNA Service: Nursing Author Type: Nurse Chicken Fancier Type: Anesthesia Procedure Notes Filed: 07/24/2021 2:29 PM Note Text: ANESTHESIOLOGY PROCEDURE NOTE CVL General Information Procedure Start Time/Medication Administration: 07/24/2021 9:45 AM Procedure End Time: 07/24/2021 9:55 AM Patient location during procedure: OR Timeout Performed Pre-procedure: timeout performed Consent Obtained: Yes Patient identity confirmed: arm band Indication: central venous access Staffing Performed by: resident Preparation Sterility Preparation: hand hygiene performed prior to procedure, sterile gloves, drapes, and procedure tray, gown used during line insertion, surgical cap used, mask used, sterile drape used during line insertion, skin prep agent completely dried prior to procedure Site Prep: Chloraprep Procedure Details Patient Position: Trendelenburg Laterality: Left Site: Internal jugular Catheter Type: Standard CVL Catheter Length (cm): 20 Number of Lumens: Quad lumen Ultrasound Guided: Yes Image in Chart: No Sites: potential access sites evaluated, selected vessel patent, concurrent real time ultrasound visualization of vascular needle entry Vessel: target vessel identified and guidewire advanced into vessel Needle advanced into vein and blood aspirated: Yes Transduced prior to dilation: Yes Number of Attempts: 1 Number of Guidewires Used: 1 Number of Guidewires Removed Intact: 1 Chest X-ray Ordered: no Post Insertion Ports and Catheter: all ports aspirate easily, all ports flush easily and ports flushed with saline Catheter Secured: suture(s), central line dressing applied and antimicrobial dressing applied Events Events: patient tolerated procedure well with no complications SIGNATURE: Howard Hunt APRN.QUALITY CONTROL INSPECTOR PATIENT NAME: Tien Alexandre DATE: July 24, 2021 TIME: 2:28 PM CSN: [id number]05-22-2022 NoteHNO ID: [id number] Author: Sepideh Ornelas MD Service: General Surgery Author Type: Physician Type: Progress Notes Filed: 07/24/2021 7:48 PM Note Text: Trauma Surgery Progress Note SERVICE DATE: 07/24/2021 Trauma Service Pager: For questions or concerns Mon-Sun 6a-5p please page [phone]. After 5pm and on Weekends and Holidays, please page [phone] if in ICU or [phone] if on RNF. SUBJECTIVE: Transferred to ICU overnight for resp distress. Feels subjectively better today. Remains on nasal cannula. Planning OR today for rib fixation. OBJECTIVE: Vitals: Temp (24hrs), Av.5 ?C (97.7 ?F), Min:36.2 ?C (97.16 ?F), Max:36.9 ?C (98.4 ?F) BP 141/99 Pulse 95 Temp 36.6 ?C (97.88 ?F) Resp 20 Ht 177.8 cm (5' 10 ) Wt 123.4 kg (272 lb 0.8 oz) SpO2 96% BMI 39.03 kg/m? O2 Therapy: Nasal Cannula IANDO: Date 07/23/21699 - 07/24/21 0659 07/24/21699 - 07/25/21 0659 Shift 5877-1859 4137-9342 2668-9391 24 Hour Total 8489-5725 2374-4261 8446-4582 24 Hour Total INTAKE IV 1990 1990 303 303 Volume (mL) (lactated ringers 1,000 mL iv bolus) 1000 1000 Volume (mL) (ceFAZolin 3 g in D5W 100 mL (ANCEF)) 100 100 Volume (mL) (NaCl 0.9% iv infusion) 991 991 203 203 Shift Total 1990 1990 303 303 OUTPUT Urine 375 550 925 550 550 Void (ml) 375 550 925 350 350 OR Urine Output 200 200 Output ([REMOVED] External Collection Device 07/22/21 0340 Assessment 07/24/21 0819) 0 0 Chest Tube 110 110 5 5 Chest Tube Output ([REMOVED] Chest Tube 07/22/21 1600 Left Lateral Pleural 24 Fr Tube #1 07/24/21 1025) 110 110 5 5 Shift Total 049 707 6351 555 555 Weight (kg) 119.1 119.1 123.4 123.4 123.4 123.4 123.4 123.4 MEDICATIONS: Current Facility-Administered Medications Medication Dose Route Frequency - NaCl 0.9% irrigation solution X (OR/PROCEDURE) PRN - water for irrigation irrigation X (OR/PROCEDURE) PRN - [MAR Hold due to Transfer] NaCl 0.9% iv infusion 100 mL/hr INTRAVENOUS CONTINUOUS - [MAR Hold due to Transfer] oxyCODONE IR 10-15 mg tab(s) (ROXICODONE) 10-15 mg ORAL q 4 H PRN - [MAR Hold due to Transfer] ipratropium-albuterol 3 mL nebulizer solution (DUONEB) 3 mL INHALATION q 4 H while awake - [MAR Hold due to Transfer] potassium chloride ER 20-40 mEq tab(s) (K-DUR, KLOR-CON) 20-40 mEq ORAL/FEEDING TUBE PRN Or - [MAR Hold due to Transfer] potassium chloride iv piggyback 20 mEq/100 mL 20 mEq INTRAVENOUS PRN - [MAR Hold due to Transfer] magnesium sulfate 2 g in sterile water 50 ml 2 g INTRAVENOUS PRN - [MAR Hold due to Transfer] phosphorus 500 mg tab(s) (K PHOS NEUTRAL) 500 mg ORAL/FEEDING TUBE PRN(NO DISPENSE) - [MAR Hold due to Transfer] calcium gluconate 4 g in NaCl 0.9% 250 mL 4 g INTRAVENOUS PRN - [MAR Hold due to Transfer] cyclobenzaprine 10 mg tab(s) (FLEXERIL) 10 mg ORAL TID - [MAR Hold due to Transfer] senna-docusate 8.6-50 mg 1 tablet (SENNA-S) 1 tablet ORAL BID - [MAR Hold due to Transfer] polyethylene glycol 3350 17 g packet (MIRALAX, GLYCOLAX) 17 g ORAL DAILY - [MAR Hold due to Transfer] HYDROmorphone 1 mg injection (DILAUDID) 1 mg INTRAVENOUS q 2 H PRN - [MAR Hold due to Transfer] busPIRone 15 mg tab(s) (BUSPAR) 15 mg ORAL DAILY - [MAR Hold due to Transfer] metoprolol succinate ER 50 mg tab(s) (TOPROL XL) 50 mg ORAL DAILY - [MAR Hold due to Transfer] venlafaxine ER 300 mg cap(s) (EFFEXOR XR) 300 mg ORAL DAILY - [MAR Hold due to Transfer] sodium chloride 0.9 % (flush) 3-5 mL (BD POSIFLUSH) 3-5 mL INTRAVENOUS q 12 H - [MAR Hold due to Transfer] NaCl 0.9% iv flush bag 20 mL INTRAVENOUS PRN - [MAR Hold due to Transfer] ondansetron 4 mg tab(s) (ZOFRAN) 4 mg ORAL q 6 H PRN Or - [MAR Hold due to Transfer] ondansetron (PF) 4 mg injection (ZOFRAN) 4 mg INTRAVENOUS q 6 H PRN - [MAR Hold due to Transfer] acetaminophen 975 mg tab(s) (TYLENOL) 975 mg ORAL QID - [MAR Hold due to Transfer] lidocaine 4 % 1 Patch (SALONPAS) 1 Patch TRANSDERMAL DAILY AT 9 PM And - [MAR Hold due to Transfer] lidocaine patch - REMOVE OTHER DAILY And - [MAR Hold due to Transfer] lidocaine - VERIFY PATCH OTHER q 8 H - [MAR Hold due to Transfer] pregabalin 50 mg cap(s) (LYRICA) 50 mg ORAL BID Labs: Recent Labs 07/24/21 0425 07/24/21 0048 07/23/21201707/23/21 18007/23/21 1803 07/22/21 0518 07/21/21 2341 NA 136 -- -- -- 134* < > -- K 4.6 -- -- -- 4.6 < > -- CHLOR 100 -- -- -- 99 < > -- CO2 28 -- -- -- 27 < > -- BUN 34* -- -- -- 39* < > -- CREAT 1.37* -- -- -- 1.61* < > -- GLUC 117* -- -- -- 121* < > -- ANION 8* -- -- -- 8* < > -- CA 8.7 -- -- -- 9.1 < > -- MG 2.2 -- -- -- -- -- -- P 3.6 -- -- -- -- -- -- WBC 7.84 -- -- 10.42 -- < > -- HB 12.0* -- -- 13.2 -- < > -- HCT 37.5* -- -- 39.6 -- < > -- PLT 185 -- -- 223 -- < > -- INR -- -- -- -- 1.0 -- 1.0 PH -- 7.33* 7.33* -- -- -- -- PCO2 -- 51* 52* -- -- -- -- PO2 -- 89 115* -- -- -- -- BE -- -- 0 -- -- -- -- HCO3 -- 26 27* -- -- -- -- < > = values in this interval not disp (more content not included)...[facility]05-21-2022 NoteHNO ID: [id number] Author: Janett Griffith RN Service: Nursing Author Type: Registered Nurse Type: Nursing Progress Note Filed: 07/23/2021 10:17 AM Note Text: Patient was able to urinate out 375ml. No straight cath needed. [facility]05-21-2022 NoteHNO ID: [id number] Author: Denia Bragg APRN.CNP Service: General Surgery Author Type: Nurse Practitioner Type: Progress Notes Filed: 07/23/2021 11:15 AM Note Text: Attestation signed by Sepideh Ornelas MD at 07/23/2021 9:22 PM (Updated) Trauma Staff Addendum: I have seen and examined this patient with the Trauma Surgery [facility]/resident team, and I agree with the assessment and plan of care documented in the electronic medical record with the following comments. I have reviewed the necessary labs and imaging. Progressive hypoxia over the past 24hrs, now on 2L NC Pain control poor, limited movement but actively participating with PT and OT. L thoracostomy tube with minimal drainage AM CXR with resolution of his moderate PTX 3D recon imaging available in [facility] Discussed ORIF of rib fractures with patient and surgical team. Both agreeable to plate fixation, tentatively scheduled for tomorrow. TANIA with urinary retention, started IVF NS at 100mL/hr today. Stop toradol. Straight catheterization PRN Repeat RFP at 2PM NPO past MN IVF Informed consent Type/screen Category of injuries include: Patient Active Hospital Problem List: Multiple rib fractures involving four or more ribs (07/21/2021) PAF (paroxysmal atrial fibrillation) ([facility]) () Anticoagulant long-term use () Obesity, Class II, BMI 35-39.9 (12/13/2020) Fall from ladder (07/22/2021) Sepideh Ornelas MD Department of General Surgery Division of Trauma, Critical Care, and Acute Care Surgery July 23, 2021 12:30 PM Trauma Surgery Progress Note SERVICE DATE: 07/23/2021 Trauma Service Pager: For questions or concerns Mon-Fri 6a-5p please page [phone]. After 5pm and on Weekends and Holidays, please page [phone] if in ICU or [phone] if on RNF. SUBJECTIVE: NAEON. Patient reporting significant pain though denies SOB. Pain isolated to ribs. Denies headache, dizziness, n/v. OBJECTIVE: Vitals: Temp (24hrs), Av.6 ?C (97.9 ?F), Min:36.5 ?C (97.7 ?F), Max:36.7 ?C (98.1 ?F) BP 157/97 Pulse 85 Temp 36.6 ?C (97.9 ?F) (Oral) Resp 18 Ht 177.8 cm (5' 10 ) Wt 119.1 kg (262 lb 9.1 oz) SpO2 91% BMI 37.67 kg/m? O2 Therapy: Room Air IANDO: Date 07/22/21 07 - 07/23/21 0659 07/23/21 0700 - 07/24/21 0659 Shift 9778-8392 1640-4388 7016-3081 24 Hour Total 7284-0436 6516-4316 2765-8327 24 Hour Total INTAKE PO 120 120 PO 120 120 IV 1000 1000 Volume (mL) (lactated ringers iv infusion) 1000 1000 Shift Total 1120 1120 OUTPUT Urine 900 900 0 0 Void (ml) 750 750 Output ( External Collection Device 07/22/21 0340 Assessment) 150 150 0 0 Chest Tube 105 105 80 80 Chest Tube Output (Chest Tube 07/22/21 1600 Left Lateral Pleural 24 Fr Tube #1) 105 105 80 80 # of BMs Number of BMs 0 x 0 x Shift Total 004 122 9371 80 80 Weight (kg) 119.1 119.1 119.1 119.1 119.1 119.1 119.1 119.1 MEDICATIONS: Current Facility-Administered Medications Medication Dose Route Frequency - NaCl 0.9% iv infusion 100 mL/hr INTRAVENOUS CONTINUOUS - cyclobenzaprine 10 mg tab(s) (FLEXERIL) 10 mg ORAL TID - senna-docusate 8.6-50 mg 1 tablet (SENNA-S) 1 tablet ORAL BID - enoxaparin 30 mg injection (LOVENOX) 30 mg SUBCUTANEOUS q 12 HR - polyethylene glycol 3350 17 g packet (MIRALAX, GLYCOLAX) 17 g ORAL DAILY - HYDROmorphone 1 mg injection (DILAUDID) 1 mg INTRAVENOUS q 2 H PRN - busPIRone 15 mg tab(s) (BUSPAR) 15 mg ORAL DAILY - metoprolol succinate ER 50 mg tab(s) (TOPROL XL) 50 mg ORAL DAILY - venlafaxine ER 300 mg cap(s) (EFFEXOR XR) 300 mg ORAL DAILY - sodium chloride 0.9 % (flush) 3-5 mL (BD POSIFLUSH) 3-5 mL INTRAVENOUS q 12 H - NaCl 0.9% iv flush bag 20 mL INTRAVENOUS PRN - ondansetron 4 mg tab(s) (ZOFRAN) 4 mg ORAL q 6 H PRN Or - ondansetron (PF) 4 mg injection (ZOFRAN) 4 mg INTRAVENOUS q 6 H PRN - acetaminophen 975 mg tab(s) (TYLENOL) 975 mg ORAL QID - oxyCODONE IR 5-10 mg tab(s) (ROXICODONE) 5-10 mg ORAL q 4 H PRN - lidocaine 4 % 1 Patch (SALONPAS) 1 Patch TRANSDERMAL DAILY AT 9 PM And - lidocaine patch - REMOVE OTHER DAILY And - lidocaine - VERIFY PATCH OTHER q 8 H - pregabalin 50 mg cap(s) (LYRICA) 50 mg ORAL BID Labs: Recent Labs 07/23/21 0351 07/22/21 0518 07/21/21 2341 NA 137 139 -- K 4.8 4.7 -- CHLOR 99 101 -- CO2 29 27 -- BUN 30* 24 -- CREAT 1.27* 1.11 -- GLUC 129* 137* -- ANION 9 11 -- CA 9.2 9.3 -- WBC 10.33 10.98 -- HB 13.7 14.1 -- HCT 41.6 42.3 -- PLT 230 243 -- INR -- -- 1.0 PHYSICAL EXAM: Genl: Appears age appropriate. No acute distress. Resting comfortably. Head/Face: Normocephalic. Atraumatic. Eyes: EOMI. Sclera not icteric, not injected Neck: No mid-line masses. C-spine non-tender. Resp: Lung sounds are clear but diminished bilat. No wheezes. No rales. Breathing is no (more content not included)...[facility] 07-23-2021 NoteHNO ID: [id number] Author: Janett Griffith RN Service: Nursing Author Type: Registered Nurse Type: Nursing Progress Note Filed: 07/22/2021 11:43 PM Note Text: Bladder scan show 311 [facility]05-20-2022 NoteHNO ID: [id number] Author: Sepideh Ornelas MD Service: General Surgery Author Type: Physician Type: Procedures Filed: 07/22/2021 4:23 PM Note Text: BEDSIDE PROCEDURE NOTE CHEST TUBE Date/Start Time: 07/22/2021 4:00 PM Performed by: Parish Parikh MD Authorized by: Sepideh Ornelas MD This procedure has been performed in part by a resident/fellow under attending's direction Informed Consent Consent Obtained: Written [place] Protocol SIGN IN Sign in communication not applicable due to emergent procedure. Personnel directly involved with the procedure wore the appropriate PPE. Patient/Surrogate Stated/Verified: Patient name and Intended procedure TIME OUT Intended patient and procedure match the source document(s). Consent documented and matches the intended procedure. Relevant labs, photos, and/or imaging studies have been reviewed. Pre-Procedure Details: The area was prepped with chlorhexidine (Chloroprep) and allowed to dry. A sterile full body drape was applied following the usual aseptic technique. Medications: Analgesia (see MAR): Fentanyl Local Anesthesia (see MAR): Lidocaine 1% with 1 to 100,000 epinephrine Anxiolysis (see MAR): Lorazapem Procedure Details: Indication: Pneumothorax Chest Tube Type: Chest Tube Location: left Intercostal Space: 4th Position: lateral Insertion site: pleural space Chest Tube Number: 1 A 24 Fr chest tube was inserted into the cavity to 22 cm depth. Placement in the pleural space was confirmed by chest x-ray. The tube was secured with tape and securement device A Vaseline gauze dressing was placed around the tube. The tube was connected to suction Drainage: serosanguineous fluid and bloody fluid Drainage amount (mL): 85 Post-insertion x-ray findings: Reviewed tube in good position Number of attempts: 1 Successful Placement: Yes Post-Procedure Details: Patient tolerated the procedure well with no immediate complications Specimens Sent: none SIGN OUT All specimen containers correctly labeled. All instruments, equipment, possible retained foreign bodies accounted for. SIGNATURE: Parish Parikh MD PATIENT NAME: Tien Alexandre DATE: July 22, 2021 TIME: 4:20 PM ACS/Trauma Staff Addendum I was present for the critical and victoria portions of this procedure. I was immediately available to provide assistance. 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 Last discharge within 30 days: No Advance Directive: Current Advance Directive: None Accounting Policy Consultant Attempted to Assist with AD Completion: Yes Action: Education Provided Health LiteracyHow often do you need to have someone help you when you read instructions, pamphlets, or other written material from your doctor or pharmacy? : 1 - Never How confident are you filling out medical forms by yourself?: 1 - Extremely If Patient scores > 3 on either question, the following interventions were put into place:: Patient did not score > 3 on either question. Baseline Mental Status Prior to this Illness what was the patient's Baseline Mental Status?: Alert AND Oriented Prior to this illness, has anyone described the patient having any of the following behaviors?: Not Applicable Relationship of the informant to the patient:: Self Functional Status: Independent Does Patient Currently Receive Any Community Services or Home Care?: None Equipment Prior to Admission: None Has the Patient Been in a Longterm Facility in the Past 30 days?: No SOCIAL: Living Arrangements: Home Lives With: Spouse Financial Resources: Employed Primary Contact: Extended Emergency Contact Information Primary Emergency Contact: Jasmina Alexandre Mobile Relation: Spouse Supportive Patient Contact:: Yes Contact Resources: Family Family Name/Phone: Jasmina Alexandre [phone] Caregiver AssessmentCaregiver is ready, willing and able to meet the patient's needs as recommended by the inter-professional team:: Yes Does the patient have an acute stroke diagnosis, or has the patient had a stroke during this admission?: No Patient's transition needs and plan for meeting these needs: Home HHC vs SNF Patient's perception of need for this admission: Fall Medication Adherance I am convinced of the importance of my prescription medication: 0 - Agree Completely I worry that my prescription medication will do more harm than good to me : 0 - Disagree Mostly I feel financially burdened by my [id number]-smucsu expenses for my prescription medication:: 0 - Disagree Mostly Risk Score: 0 Patient is categorized as: Low risk < 2 Are you interested in bedside delivery of your medications? No Is Patient Psychosocially Complex?: No ASSESSMENT AND PLAN: Medical Needs: Medical Needs: Two or more chronic diseases Psychosocial Needs: Psychosocial Needs: None FREEDOM OF CHOICE EXPLAINED: [place] of Choice Given: No Reason Not Given: Unable to complete with this assessment - revisit (need PT/OT recs) POTENTIAL TRANSITION PLANS To Be Determined Spoke with patient. 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 No DME, O2. Family to transport at discharge at this time. Lives in ranch home with 6 step into home. Has 3 family members close by that are RN's as well. At this time, patient is agreeable to SNF/HHC/Otpt therapy depending on PT/OT recs. Waiting for therapy to evaluate. Will follow for transitional care planning. SIGNATURE: Amy Bernal RN PATIENT NAME: Tien Alexandre DATE: July 22, 2021 TIME: 10:14 AM PAGER/CONTACT #: [phone] NoteHNO ID: [id number] Author: Denia Bragg APRN.EXTRUDER Service: General Surgery Author Type: Nurse Practitioner Type: Progress Notes Filed: 07/22/2021 8:58 AM Note Text: Trauma Surgery Progress Note SERVICE DATE: 07/22/2021 Trauma Service Pager: For questions or concerns Mon-Fri 6a-5p please page [phone]. After 5pm and on Weekends and Holidays, please page [phone] if in ICU or [phone] if on RNF. SUBJECTIVE: NAEON. Patient reporting significant pain though denies SOB. Pain isolated to ribs. Denies headache, dizziness, n/v. OBJECTIVE: Vitals: Temp (24hrs), Av.8 ?C (98.2 ?F), Min:36.6 ?C (97.9 ?F), Max:37.1 ?C (98.7 ?F) BP 132/84 Pulse 64 Temp 36.6 ?C (97.9 ?F) (Oral) Resp 18 Ht 177.8 cm (5' 10 ) Wt 119.1 kg (262 lb 9.1 oz) SpO2 98% BMI 37.67 kg/m? O2 Therapy: Room Air IANDO: Date 07/21/21 0700 - 07/22/21 0659 07/22/21 0700 - 07/23/21 0659 Shift 8022-8785 8311-7788 9791-8421 24 Hour Total 0100-3934 8025-4755 9085-6814 24 Hour Total INTAKE PO 120 120 PO 120 120 IV 1000 1000 Volume (mL) (lactated ringers iv infusion) 1000 1000 Shift Total 1120 1120 OUTPUT Urine 350 350 Void (ml) 350 350 # of BMs Number of BMs 0 x 0 x Shift Total 350 350 Weight (kg) 117.9 119.1 119.1 119.1 119.1 119.1 119.1 MEDICATIONS: Current Facility-Administered Medications Medication Dose Route Frequency - keTORolac 10 mg tab(s) (TORADOL) 10 mg ORAL q 6 H - cyclobenzaprine 10 mg tab(s) (FLEXERIL) 10 mg ORAL TID - busPIRone 15 mg tab(s) (BUSPAR) 15 mg ORAL DAILY - metoprolol succinate ER 50 mg tab(s) (TOPROL XL) 50 mg ORAL DAILY - venlafaxine ER 300 mg cap(s) (EFFEXOR XR) 300 mg ORAL DAILY - sodium chloride 0.9 % (flush) 3-5 mL (BD POSIFLUSH) 3-5 mL INTRAVENOUS q 12 H - NaCl 0.9% iv flush bag 20 mL INTRAVENOUS PRN - lactated ringers iv infusion 125 mL/hr INTRAVENOUS CONTINUOUS - ondansetron 4 mg tab(s) (ZOFRAN) 4 mg ORAL q 6 H PRN Or - ondansetron (PF) 4 mg injection (ZOFRAN) 4 mg INTRAVENOUS q 6 H PRN - acetaminophen 975 mg tab(s) (TYLENOL) 975 mg ORAL QID - morphine 4 mg injection 4 mg INTRAVENOUS q 4 H PRN - oxyCODONE IR 5-10 mg tab(s) (ROXICODONE) 5-10 mg ORAL q 4 H PRN - lidocaine 4 % 1 Patch (SALONPAS) 1 Patch TRANSDERMAL DAILY AT 9 PM And - lidocaine patch - REMOVE OTHER DAILY And - lidocaine - VERIFY PATCH OTHER q 8 H - pregabalin 50 mg cap(s) (LYRICA) 50 mg ORAL BID Labs: Recent Labs 07/22/2151707/21/21 2341 NA 139 -- K 4.7 -- CHLOR 101 -- CO2 27 -- BUN 24 -- CREAT 1.11 -- GLUC 137* -- ANION 11 -- CA 9.3 -- WBC 10.98 -- HB 14.1 -- HCT 42.3 -- PLT 243 -- INR -- 1.0 PHYSICAL EXAM: Genl: Appears age appropriate. No acute distress. Resting comfortably. Head/Face: Normocephalic. Atraumatic. Eyes: EOMI. Sclera not icteric, not injected Neck: No mid-line masses. C-spine non-tender. Resp: Lung sounds are clear but diminished bilat. No wheezes. No rales. Breathing is non-labored on RA @96%. Significant TTP left lateral and posterior chest. CVS: RRR as above; 2+ pulses at RA, DP, PT bilat. GI: Abdomen is soft, non-tender, not distended. Bowel sounds normoactive. No peritonitis. MSK: Extremities without clubbing, cyanosis, edema. Normal ROM x 4. Skin: Warm and dry. Not jaundiced. Neuro: AANDOx3. Strength and sensation normal. NG. GCS15. Psych: Normal mood. Normal affect. Appropriate insight into current situation. ASSESSMENT AND PLAN: Active Hospital Problems Diagnosis Date Noted - Multiple rib fractures involving four or more ribs 07/21/2021 - Fall from ladder 07/22/2021 - Obesity, Class II, BMI 35-39.9 12/13/2020 - PAF (paroxysmal atrial fibrillation) (HCC) - Anticoagulant long-term use 65 year old male s/p fall from ladder on Eliquis Imaging performed: 1. CT [facility]AP @ [facility] (07/21) 2. CXR, XR L femur (07/21) 3. CXR (07/22) Traumatic Injuries: 1. Left lateral 2-9 rib fractures, posterior 3-9 rib fractures 2. Small (<5%) left pneumothorax Operations/Procedures: 1. None Care Plan: 1. Left 2-9 rib fx in 2 places, pneumothorax 1. Pulmonary hygiene 2. Pain control 3. 2V CXR 07/22 pending 4. Imaging from [facility] to be uploaded 1. Will discuss possible rib plating when images are available 5. Hold Eliquis 2. Current diet order: DIET LIQUID 3. Pain regimen: Scheduled tylenol, flexeril, toradol, lyrica, lido patch; prn oxycodone, morphine 4. Bowel regimen: Senna-s 5. Labs: As above PPX: 1. DVT: SCDs, mobilize 2. Ulcer: n/a 3. Vit D level if > 65 yo: n/a Consulted Services: 1. PT/OT Dispo Plannin. PT/OT recs pending. Case management following. Incidentals: 1. TBD - will follow up on [facility] imaging Follow Up Needs: 1. TBD Staff Trauma Surgeon: Dr. Ornelas SIGNATURE: Denia Bragg APRN.EXTRUDER PATIENT NAME: Tien Alexandre DATE: 07/22/2021 TIME: 8:50 AM Pager: see below Trauma Service Pager: For questions or concerns Sun-Sun 6a-5p please page [phone]. (more content not included)...[facility]10-11-2021 NoteHNO ID: [id number] Author: Gualberto Redding MD Service: ? Author Type: Physician Type: Progress Notes Filed: 12/13/2020 7:33 PM Note Text: PRIMARY CARE PHYSICIAN: Ravinder Ernandez MD ([facility]) [address] [place] [address] REFERRING PHYSICIAN: Cleveland Perez MD ([facility]) [address] [place] [id number] Patient Care Team: Ravinder Ernandez as PCP - General (Family Practice) Cleveland Perez as Specialty Refrigerating Technician (Cardiology) CHIEF COMPLAINT: Evaluation of arrhythmia, atrial fibrillation HISTORY OF PRESENT ILLNESS: Mr. Alexandre is a 65 year old male who presents today for evaluation of atrial fibrillation. He states that he was diagnosed with the atrial fibrillation in about September 2020. I believe he said he had some cold symptoms such as cough. He was evaluated by a nurse at work and at some point found to have atrial fibrillation. He was asymptomatic from this arrhythmia. He was treated with metoprolol for ventricular rate control as well as oral anticoagulation therapy for stroke prevention with Eliquis. He was already following with a mobile phlebotomist, Dr. Perez, as he had been evaluated by him previously for chest pain and underwent testing including a stress test that Mr. Alexandre states was normal. After the recent diagnosis of atrial fibrillation, he underwent additional cardiac testing including an echocardiogram and a 48-hour ambulatory Holter monitor. The echocardiogram was fairly unremarkable, with normal left ventricular systolic function, mild to moderate mitral regurgitation. The Holter monitoring revealed paroxysmal atrial fibrillation, approximately 28% of the time. He was unaware of the arrhythmia, experiencing no substantial symptoms from it. He is not aware of any potential triggers for the atrial fibrillation, does not drink caffeinated or alcoholic beverages in excess. He states that he might have been told in the past by his that he snores, but he is not known to have sleep apnea, admits that he has never been tested. 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 However this was unusual and he thinks he might have been overdoing it physically, and overall has not been experiencing symptoms particularly that limit his activities. He denies chest pain, orthopnea, palpitations, PND, syncope. I have confirmed and edited as necessary, the PFSH and ROS obtained by others. PAST MEDICAL HISTORY Diagnosis Date - Anticoagulant long-term use indication: stroke prevention atrial fibrillation - Anxiety state - At risk for stroke low risk, [id number] = 0 - Chest pain - Mixed hyperlipidemia - PAF (paroxysmal atrial fibrillation) (HCC) - RBBB - SOB (shortness of breath) PAST SURGICAL HISTORY Procedure Laterality Date - BACK SURGERY HX 1980 spinal fusion - HIATAL HERNIA REPAIR HX 1979 SOCIAL HISTORY Social History Tobacco Use - Smoking status: Never Smoker - Smokeless tobacco: Never Used Substance Use Topics - Alcohol use: Yes Comment: occassional - Drug use: Never FAMILY HISTORY Problem Relation Age of Onset - COPD Mother - Sudden Cardiac Father - DVT Father had IVC filter - Arrythmias Brother - No Known Problems Brother - Ischemic Heart Disease Maternal Grandfather - Heart Attack Maternal Grandfather ALLERGIES: ALLERGIES Allergen Reactions - Codeine Vomiting MEDICATIONS: metoprolol succinate ER (TOPROL XL) 50 mg 24 hr tablet Take 50 mg by mouth once daily. venlafaxine ER (EFFEXOR XR) 150 mg 24 hr capsule Take 300 mg by mouth once daily. busPIRone (BUSPAR) 15 mg tablet Take 15 mg by mouth once daily. apixaban (ELIQUIS) 5 mg tab(s) Take 5 mg by mouth twice daily. hydrOXYzine Pamoate 100 mg capsule Take 100 mg by mouth at bedtime as needed. rosuvastatin (CRESTOR) 10 mg tablet Take 10 mg by mouth once daily. REVIEW OF SYSTEMS: Review of Systems Constitutional: Negative for chills, fever, malaise/fatigue and weight loss. Respiratory: Negative for cough, hemoptysis, sputum production and shortness of breath. Cardiovascular: Negative for chest pain, palpitations, orthopnea and PND. Gastrointestinal: Negative for abdominal pain, blood in stool, nausea and vomiting. Genitourinary: Negative for hematuria. Skin: Negative for rash. Neurological: Negative for dizziness and loss of consciousness. All other systems reviewed and are negative. PHYSICAL EXAMINATION: BP 132/88 Pulse 73 Ht 5' 10 (1.78m) Wt 260 lb (117.9kg) SpO2 98% BMI 37.31 kg/(m2). Physical Exam Vitals reviewed. Constitutional: General: He is not in acute distress. Appearance: He is obese. HENT: Head: Normocephalic and atraumatic. Cardiovascular: Rate and Rhythm: Normal rate and regular rhythm. Heart sounds: Normal he (more content not included)...[facility] Future Appointments Appointment Date:01/25/2022 03:00:00 PM Scheduled Provider:DANA RICARDO DO Location:[facility] Appointment Type:[facility] Future Scheduled Tests Laboratory* Prostate Specific Antigen 09/09/21 * Thyroid Stimulating Hormone 09/09/21 * Complete Blood Count 09/09/21 * Lipid Profile 09/09/21 * Hepatitis C Antibody IgG 09/09/21 * Vitamin D Level 09/09/21 * Complete Metabolic Panel 09/09/21 [facility] Evaluation + Plan note Future Appointments Appointment Date:01/25/2022 03:00:00 PM Scheduled Provider:DANA RICARDO DO Location:[facility] Appointment Type: OV [facility] Evaluation + Plan note Future Appointments Appointment Date:05/30/2022 10:00:00 AM Scheduled Provider:DANA RICARDO DO Location:[facility] Appointment Type:PC OV [facility] Evaluation + Plan note Future Appointments Appointment Date:12/12/2022 08:30:00 AM Scheduled Provider:DANA RICARDO DO Location:[facility] Appointment Type:PC OV Future Scheduled Tests Laboratory* Basic Metabolic Panel 08/29/22 * Thyroid Stimulating Hormone 08/29/22 * Free T4 08/29/22 * Uric Acid 08/29/22 * A1C Hemoglobin 08/29/22 * Complete Blood Count 08/29/22 * Lipid Profile 08/29/22 * Albumin/Creatinine Ratio, Random Urine 08/29/22 [facility] Evaluation + Plan note Future Appointments Appointment Date:12/12/2022 08:30:00 AM Scheduled Provider:DANA RICARDO DO Location:[facility] Appointment Type: OV Future Scheduled Tests Laboratory* Albumin/Creatinine Ratio, Random Urine 08/29/22 [facility] Evaluation note* Diagnosis Multiple rib fractures involving four or more ribs- Primary documented in this encounter [facility] note* Diagnosis Closed fracture of multiple ribs of left side, initial encounter Traumatic pneumothorax, subsequent encounter documented in this encounter [facility] note* Diagnosis Multiple rib fractures involving four or more ribs [facility] Narrative No data available for this section [facility] Hospital Discharge instructions No data available for this section [facility] Progress note No data available for this section [facility] Summary Purpose Family History No Family History Records FoundNo Family History Records FoundNo Family History Records FoundNo Family History Records Found No data available for this section No data available for this section No Family History Records Found Advance Directives No Advanced Directives Records FoundDocuments on File Type Date Recorded Patient Maintenance Director Expl anation Advance Directive(s) 07/21/2021 10:00 PM Additional Source Comments (unrecognized sect ion and content) No Status Records FoundNo Status Records FoundNo Status Records FoundNo Status Records FoundNo Status Records Found INFORMATION SOURCE (unrecogn ized section and content) DATE CREATED AUTHOR AUTHOR'S ORGANIZ ATION 09/22/2019 [facility] DATE CREATED AUTHOR AUTHOR'S ORGANIZ ATION 08/03/2021 [facility] DATE CREATED AUTHOR AUTHOR'S ORGANIZ ATION 11/11/2021 [facility] DATE CREATED AUTHOR AUTHOR'S ORGANIZ ATION 12/10/2022 [facility] ([place]) Source Comments (unrecognize d section and content) In the event this informatio n is protected by the Federal Confidentiality of Alcohol and Drug Abuse Patient Records regulations: The Federal rules restrict any use of the information to criminally investigate or prosecute any alcohol or drug abuse patient.[facility] the event this information is protected by the Federal Confidentiality of Alcohol and Drug Abuse Patient Records regulations: The Federal rules restrict any use of the information to criminally investigate or prosecute any alcohol or drug abuse patient.[facility] the event this information is protected by the Federal Confidentiality of Alcohol and Drug Abuse Patient Records regulations: The Federal rules restrict any use of the information to criminally investigate or prosecute any alcohol or drug abuse patient.[facility] the event this information is protected by the Federal Confidentiality of Alcohol and Drug Abuse Patient Records regulations: The Federal rules restrict any use of the information to criminally investigate or prosecute any alcohol or drug abuse patient.[facility] the event this information is protected by the Federal Confidentiality of Alcohol and Drug Abuse Patient Records regulations: The Federal rules restrict any use of the information to criminally investigate or prosecute any alcohol or drug abuse patient.[facility] [facility] Reason for Visit (unrecogniz ed section and content) Reason Comments Post Op rib plating Reason Comments Rib Injury Care Teams (unrecognized sec tion and content) 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 Specialty Start Date End Date NguyendianeRavinder nesbitt PCP - General Family Practice 01/09/16 [place] Perez [address] [place] [phone] Specialty Refrigerating Technician Cardiology 12/10/20 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 Specialty Start Date End Date Ravinder Ernandez PCP - General Family Practice 01/09/16 [place] Perez [address] [place] [phone] Specialty Refrigerating Technician Cardiology 12/10/20 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 Specialty Start Date End Date Ravinder Ernandez PCP - General Family Practice 01/09/16 [place] Perez [address] JASMYN [address] [place] [phone] Specialty Refrigerating Technician Cardiology 12/10/20 Care Team (unrecognized sect ion and content) Care Team Personnel Name: DANA RICARDO DO Position: P4 Physician - Primary Care Member Role: Primary Care Physician Address: Address: [address] [place] [address] Care Team Related Persons Name: JASMINA ALEXANDRE Care Team Personnel Name: DANA RICARDO DO Position: P4 Physician - Primary Care Member Role: Primary Care Physician Address: Address: [address] [place] [address] Care Team Related Persons Name: JASMINA ALEXANDRE FOR RECORDS PERTAINING TO PATIENTS WHO ARE OR HAVE BEEN ENROLLED IN A CHEMICAL DEPENDENCY/SUBSTANCEABUSE PROGRAM, SOME INFORMATION MAY BE OMITTED. This clinical summary was aggregated from multiple sources. Caution should be exercised in using it in the provision of clinical care. This summary normalizes information from multiple sources, and as a consequence, information in this document may materially change the coding, format and clinical context of patient data. In addition, data may be omitted in some cases. CLINICAL DECISIONS SHOULD BE BASED ON THE PRIMARY CLINICAL RECORDS. [facility] [employer] [facility]. provides no warranty or guarantee of the accuracy or completeness of information in this document.
[2023-03-02] MEDS: 0.9% Normal Saline (1000mL) 1,000 ML 250 ML IV (14:20)
[2023-03-02] MEDS: LORazepam 1 MG Tablet PO (14:41)
[2023-03-02 15:03] VITALS: BP 124/88; PULSE 95; RESP 9; O2SAT 94
[2023-03-02 16:05] VITALS: PULSE 82; RESP 16; O2SAT 94
== END 2023-03-02 16:10 | disposition home or self-care (01) ==
PROVIDERS: Emergency Provider Emergency Medicine; Referring Provider Emergency Medicine; Visit Provider Emergency Medicine
DX: S06.0X0A Concussion without loss of consciousness, initial encounter (principal); S12.300A Unspecified displaced fracture of fourth cervical vertebra, initial encounter for closed fracture; I48.0 Paroxysmal atrial fibrillation; K52.9 Noninfective gastroenteritis and colitis, unspecified; R55 Syncope and collapse; E66.9 Obesity, unspecified; Z86.16 Personal history of COVID-19; Z79.01 Long term (current) use of anticoagulants; X58.XXXA Exposure to other specified factors, initial encounter
CPT/HCPCS: 70450; 72125; 80048; 80076; 83690; 84484; 85025; 87631; 93005; 96361; 96374; 96375; 99285; J7030; A4216; J2405

== ENCOUNTER → 2023-03-14 | Outpatient (CLI) | payer OTHER, SELFPAY ==
--- OUTSIDE RECORDS SUMMARY | 2023-03-14 09:40 | XMS RPT_ITS | CCD ---
Author Name Unknown Address [address] [place] [address] Organization [facility] Care Team Providers Care Cyber Security Name Role Phone JUNE BENTLEY Unavailable Unavailable JAMES LORA Unavailable Unavailable JAMES LORA Unavailable Unavailable JUNE BENTLEY Unavailable Unavailable Ravinder Ernandez Primary Care Provider [phone] Cleveland Perez Unavailable Ravinder Ernandez Primary Care Provider [phone] Cleveland Perez Unavailable DANA RICARDO DO Primary [...] sources) Codeine; Translations: [codeine] Drug Allergy 01-09-2016 [facility] Medications Current Medications Medication Drug Class(es) Dates Sig (Normalized) Sig (Original) allopurinol 100 mg oral tablet (3 sources) Xanthine Oxidase Inhibitor Start: 08-29-2022 allopurinol 100 mg oral tablet Dose : 100 mg = 1 tab(s), Oral, qDayPC, # 90 tab(s), 0 Refill(s), Pharmacy: [facility]/pharmacy #[id number], Gout, 180, cm, 08/29/22 9:32:00 EDT, Height, [...] sources) Long-term current use of anticoagulant; Translations: [long-term (current) use of anticoagulants] 07-22-2021 Episodic Other [...] height 177.8 cm Acute 359 Work Phone: [facility] 08-11-2021 13:08-0400 Body weight 113.4 kg Acute 359 Work Phone: [facility] 08-11-2021 13:08-0400 Diastolic blood pressure 86 mm[Hg] Acute 359 Work Phone: [facility] 08-11-2021 13:08-0400 Heart rate 86 /min Acute 359 Work Phone: [facility] 08-11-2021 13:08-0400 Respiratory rate 20 /min Acute 359 Work Phone: [facility] 08-11-2021 13:08-0400 SaO2% (BldA) [Mass fraction] 98 % Acute 359 Work Phone: [facility] 08-11-2021 13:08-0400 Systolic blood pressure 129 mm[Hg] Acute 359 Work Phone: [facility] Encounters Encounter Date Encounter Type Care Provider Facility Start: 12-06-2022 End: 12-07-2022 ambulatory DANA RICARDO DO Facility:B Start: 12-06-2022 End: 12-06-2022 Patient encounter procedure DANA RICARDO DO [facility] Start: 10-17-2022 End: 10-18-2022 ambulatory DANA HIGGINSINS DO Facility:B Start: 10-17-2022 End: 10-17-2022 Patient encounter procedure DANA RICARDO DO [facility] Start: 08-23-2022 End: 08-24-2022 ambulatory DANA RICARDO DO Facility:B Start: 07-26-2022 End: 07-27-2022 ambulatory DANA HIGGINSINS DO Facility:B Start: 05-25-2022 End: 05-26-2022 ambulatory DANA E RICARDO DO Facility:B Start: 05-25-2022 End: 05-25-2022 Patient encounter procedure DANA RICARDO DO [facility] Start: 05-25-2022 End: 05-25-2022 Well adult monitoring check done DANA RICARDO DO [facility] Start: 01-02-2022 End: 01-03-2022 ambulatory KAITLIN GAMBOA APRN-CHILD PSYCHOLOGIST Facility:B Start: 01-02-2022 End: 01-02-2022 Patient encounter procedure KAITLIN GAMBOA APRN-CHILD PSYCHOLOGIST [facility] Start: 11-23-2021 End: 11-23-2021 Patient encounter procedure DANA RICARDO DO [facility] Start: 11-10-2021 End: 11-10-2021 ambulatory Acute 359 Work Phone: [facility] Procedures Date Procedure Procedure Detail Performing Clinician Start: 08-11-2021 Radiologic exam ches t 2 views Denia Drain MACHINE BOSS.CHILD PSYCHOLOGIST Work Phone: Start: 07-24-2021 Antibody screen Plan of Treatment Date Care Activity Detail Author Start: 07-29-2024 DIABETES SCREEN DIABETES SCREEN [facility] Start: 10-30-2022 LIPID SCREEN LIPID SCREEN [facility] Start: 02-09-2022 End: 12-10-2022 Radiologic exam chest 2 views XR CHEST 2V FRONTAL/LAT Radiology Routine Multiple rib fractures involving four or more ribs Expected: 02/09/2022 (Approximate), Expires: 12/10/2022 [facility] Work Phone: Immunizations Immunization Date Immunization Notes Care Provider Fa cili 08-29-2022 tetanus toxoid, redu rian diphtheria toxoid, and acellular pertussis vaccine, adsorbed; Translations: [Boostrix (Tdap)] DANA RICARDO DO [facility] 08-29-2022 zoster vaccine recombinant; Translations: [Shingrix] DANA RICARDO DO [facility] 03-21-2022 influenza virus vaccine, unspecified formulation DANA RICARDO DO [facility] 10-05-2021 SARS-CoV-2 mRNA (tozinameran) vaccine DANA RICARDO DO [facility] Payers Date Payer Category Payer Unknown [id number] 2021 Unknown [employer] [id number] 2021-Present [phone] [address] [place] [address] PPO [id number] 2021 Unknown [employer] [place] [employer] [id number] 2021-Present [phone] [address] [place] [address] PPO [id number] 2015 Unknown [id number] 1955 Unknown [id number] 1955 Unknown [id number] 1955 Unknown [id number] 1955 Unknown [id number] 1955 Unknown [id number] 1955 Unknown [id number] Social History Date Type Detail Facility Start: 01-09-2016 End: 12-03-2019 Tobacco smoking status NHIS Never smoked tobacco [facility] Start: 01-09-2016 End: 2020 Tobacco use and exposure Smokeless tobacco non-user [facility] Start: 12-13-2020 End: 08-11-2021 Alcohol intake Current drinker of alcohol (finding) [facility] Start: 2020 History SDOH Alcohol Comment occassional [facility] Start: 1955 Sex Assigned At Not on file [facility] Start: 07-19-2021 End: 07-29-2021 Exposure to SARS-CoV-2 (event) Unable to assess [facility] Start: 08-01-2021 End: 11-08-2021 Exposure to SARS-CoV-2 (event) Not sure [facility] Sex Assigned At Male [facility] [...] Clinical Notes 12-13-2020 to 01-02-2022 Denia Drain, MACHINE BOSS.CHILD PSYCHOLOGIST - 11/10/2021 12:42 PM EDTAurelio Kelsey PA-C [...] 01/02/2022 4:14:48 PM Ordering Provider: KAITLIN COOPER [facility] 01-02-2022 Note ORIGINAL HISTORY: Elevated liver [...] Simeon Vasquez MD Preliminary Report By: Simeon Vasuqez MD Electronically signed By Simeon Vasquez MD Dictated Date: 01/02/2022 4:13:42 PM Prelim Date: 01/02/2022 4:14:48 PM Sign Date: 01/02/2022 4:14:48 PM Ordering Provider: [facility] 11-10-2021 Note HNO ID: [id number] Author: Denia Bragg APRN.CHILD PSYCHOLOGIST Service: ? Author Type: Nurse Practitioner Type: [...] old male s/p fall from ladder on [employer] on 07/21/2021, underwent rib plating on 07/24/2021 [...] time spent on medical discussion: 5 minutes [id number] SIGNATURE: Denia Bragg APRN.CNP PATIENT NAME: Tien Alexandre DATE: November 10, 2021 TIME: 12:42 PM Pager: [facility] 11-10-2021 History of Presen t illness Narrative [...] old male s/p fall from ladder on [facility] on 07/21/2021, underwent rib plating on [...] time spent on medical discussion: 5 minutes [id number] SIGNATURE: Denia Bragg APRN.CNP PATIENT NAME: Tien Alexandre DATE: November 10, 2021 TIME: 12:42 PM Pager: documented in this encounter [facility] 08-11-2021 Note HNO ID: [id number] Author: Aurelio Kelsey PA-C Service: ? Author Type: Physician Video Game Script Writer Type: Progress Notes Filed: 08/11/2021 3:13 PM Note Text: Trauma Clinic Note SERVICE DATE: 08/11/2021 Trauma Service Pager: For questions or concerns Mon-Fri 6a-5p please page [phone]. After 5pm and on Weekends and Holidays, [...] August 11, 2021 TIME: 3:02 PM Pager: [phone] (text page) [facility] 08-11-2021 History of Presen t illness Narrative Images from the original note were not included. Trauma Clinic Note SERVICE DATE: 08/11/2021 Trauma Service Pager: For questions or concerns Mon-Fri 6a-5p please page [phone]. After 5pm and on Weekends and Holidays, please page [phone] if in ICU or [phone] if on RNF. SUBJECTIVE: Patient presents to [...] August 11, 2021 TIME: 3:02 PM Pager: [phone] (text page) documented in this encounter [facility] 08-11-2021 Note HNO ID: [id number] Author: LATASHA Elizabeth) Service: Radiology Author Type: [...] LATASHA Elizabeth) August 11, 2021 12:35 PM [facility] 08-11-2021 History of Presen t illness Narrative [...] 2021 12:35 PM documented in this encounter [facility] 08-02-2021 Miscellaneous Notes PATIENT INFORMATION Record ID: [id number] Patient Name: Tien Alexandre Hospital: [facility] [place]: [facility] Attending: Alexandro Brantley Center: General Surgery [facility] INSTRUCTIONS All Clear SN to remind patient of next upcoming appointment date, time, location All Clear All Clear All Clear SURVEY INFORMATION Medical/Nurse Video Game Script Writer: Garo Sargent 1. Your discharge instructions are [...] (Standard Question) No documented in this encounter [facility] 07-29-2021 Note HNO ID: [id number] Author: Sameera Richter RN Service: Care Management Author Type: Registered Nurse Type: Care Mgt Progress Note Filed: 07/29/2021 11:07 AM Note Text: CARE MANAGEMENT DISCHARGE NOTE SERVICE DATE: 07/29/2021 SERVICE TIME: 11:04 AM LOS: 8 days Admission Date: 07/21/2021 DISCHARGE ARRANGEMENT (list agency and phone number) Discharge Arrangement: Home with Home Health Provider Name: [facility] CAREGIVER ASSESSMENT: Caregiver is ready, willing and [...] Handoff to: Other Caregiver Other Caregiver Name/Phone: [facility] Services/ Bedside RN to give patient discharge instructions TRANSPORTATION ARRANGEMENTS: Transportation Arrangements: Car Needs Prior to Discharge: Ready for Discharge Discharge today. Discharge orders complete. Plan is home with skilled home health care and home therapy services. [facility] Care is able to accept patient. [facility] aware of discharge home today. Physician order placed for home care services: Yes. Start of care date: [facility] Care will reach out to patient to confirm start of care date. Patient/Family agreeable to discharge plan: Yes. Will continue to follow for further DC planning needs. SIGNATURE: Sameera Richter RN PATIENT NAME: Tien Alexandre DATE: July 29, 2021 TIME: 11:04 AM PAGER/CONTACT #: [phone] [facility] 07-29-2021 Note HNO ID: [id number] Author: Denia Bragg APRN.CNP Service: General Surgery Author Type: Nurse Practitioner Type: Progress Notes Filed: 07/29/2021 8:01 AM Note Text: Trauma Surgery Progress Note SERVICE DATE: 07/29/2021 Trauma Service Pager: For questions or concerns Mon-Fri 6a-5p please page [phone]. After 5pm and on Weekends and Holidays, please page [phone] if in ICU or [phone] if on RNF. SUBJECTIVE: NAEON. Patient reporting [...] 0659 07/29/21 0700 - 07/30/21 0659 Shift 9655-4450 5435-4832 9045-9755 24 Hour Total 3233-4666 2233-7317 9604-5813 24 Hour Total INTAKE Shift Total OUTPUT [...] 35-39.9 12/13/2020 - PAF (paroxysmal atrial fibrillation) ([facility]) - Anticoagulant long-term use - Mixed hyperlipidemia 65 year old male s/p fall from ladder on Eliquis ? Imaging performed: 1. CT HNCAP @ [place] (07/21) 2. 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 [facility] 07-28-2021 Note HNO ID: [id number] Author: Denia Bragg APRN.CHILD PSYCHOLOGIST Service: General Surgery Author Type: Nurse Practitioner Type: Plan of Care Filed: 07/28/2021 9:12 AM Note Text: Left chest tube removed on maximal inspiration. Site covered with occlusive dressing. Patient tolerated well. ? 2V CXR ordered for 1pm today. Will obtain sooner if patient develops worsening chest pain or SOB. ? Denia Bragg APRN.CNP 07/28/2021 9:00 AM [facility] 07-28-2021 Note HNO ID: [id number] Author: Denia Bragg APRN.CNP Service: General Surgery Author Type: Nurse Practitioner Type: Progress Notes Filed: 07/28/2021 8:09 AM Note Text: Trauma Surgery Progress Note SERVICE DATE: 07/28/2021 Trauma Service Pager: For questions or concerns Mon-Fri 6a-5p please page [phone]. After 5pm and on Weekends and Holidays, please page [phone] if in ICU or [phone] if on RNF. SUBJECTIVE: NAEON. Patient reports [...] 0659 07/28/21 07 - 07/29/21 0659 Shift 9738-6605 1140-2958 6628-1412 24 Hour Total 3186-3786 3274-0386 6488-5948 24 Hour Total INTAKE PO 600 600 [...] ? Imaging performed: 1. CT HNCAP @ [place] (07/21) 2. CXR, XR L femur (07/21) 3. CXR (07/22) 4. CXR (07/23) 5. CXR (07/24) 6. CXR, KUB (07/25) 7. CXR (07/26) 8. CXR (07/27) 9. CXR (07/28) ? Traumatic Injuries: 1. Left lateral 2-9 rib fractures, posterior 3-9 rib fractures 2. Small (<5%) le (more content not included)... [facility] 07-27-2021 Note HNO ID: [id number] Author: Sameera Richter RN Service: Care Management [...] that can take his insurance. No preference. [facility] notified and is able to [...] 27, 2021 TIME: 7:44 AM PAGER/CONTACT #: [phone] [facility] 07-27-2021 Note HNO ID: [id number] Author: Asaf Ortega DO Service: General Surgery [...] questions or concerns Mon-Sun 6a-5p please page [phone]. After 5pm and on Weekends and Holidays, please page [phone] if in ICU or [phone] if on RNF. SUBJECTIVE: NAEON. Admits to [...] 07/26/21699 - 07/27/2165807/27/21699 - 07/28/21 0659 Shift 8718-1894 4324-9710 0100-0028 24 Hour Total 5275-3482 1806-9111 9008-0353 24 Hour Total INTAKE PO 250 240 [...] Active Hospital Pr (more content not included)... [facility] 07-26-2021 Note HNO ID: [id number] Author: Jordi Roper MD Service: General Surgery [...] questions or concerns Mon-Fri 6a-5p please page [phone]. After 5pm and on Weekends and Holidays, please page [phone] if in ICU or [phone] if on RNF. SUBJECTIVE: The patient with [...] 0659 07/26/21 07 - 07/27/21 0659 Shift 6683-8576 5861-0521 1361-1090 24 Hour Total 3466-4850 9029-7530 5311-3304 24 Hour Total INTAKE PO 470 200 670 PO 470 200 670 IV 786 780 0166 Volume (mL) (potassium phosphate 45 mmol in NaCl 0.9% 500 mL) 260 260 Volume (mL) (calcium gluconate 4 g in NaCl 0.9% 250 mL) 250 250 Volume (mL) (NaCl 0.9% iv infusion) 670 210 880 Shift Total 4516 447 2767 OUTPUT Urine 350 610 960 Output ( Indwelling Urinary Catheter 07/24/21 Coude 18 Fr) 350 610 960 Chest Tube 185 185 Chest Tube Output (Chest Tube 07/24/21 Left Lateral Pleural 28 Fr Tube #1) 185 185 Shift Total 517 961 6936 Weight (kg) 123.4 123.4 123.4 123.4 123.4 [...] HB 11.0* 1 (more content not included)... [facility] 07-25-2021 Note HNO ID: [id number] Author: Anitha Quinones [facility] Service: Pharmacy Author Type: Pharmacist Type: Plan of Care Filed: 07/26/2021 8:27 AM Note Text: Patient Name:Niko Alexandre : 1955 Reconciliation: Yes All TIPPLE TENDER medications addressed by LIP Additional comments: see below. Buspirone BID, not daily; hydroxyzine 25mg, not 100mg and TID PRN, not QHS prn. Risperidone 0.25mg/qhs added. Allergies: ALLERGIES Allergen Reactions - Codeine Vomiting Preferred Pharmacy: e- [id number] [place] [address] - [address] [facility] - [phone] Current TIPPLE TENDER Medications: Prior to Admission medications as of [...] by mouth once daily. Yes Anitha Quinones [facility] July 26, 2021 8:26 AM PHARMACY MEDICATION REVIEW Patient Name: Tien Alexandre : 1955 The following medications were updated within the TIPPLE TENDER medication list: Medications ADDED to TIPPLE TENDER medication list hydrOXYzine pamoate (VISTARIL) 25 mg capsule OTHER Yes Yes Sig: Take 25 mg by mouth three times daily as needed. Pharmacy reports TID PRN Medications CHANGED on TIPPLE TENDER medication list busPIRone (BUSPAR) 15 mg tablet OTHER Yes Yes Sig: Take 15 mg by mouth twice daily. Pharmacy reports BID Pharmacy reports TID PRN Medications REMOVED from TIPPLE TENDER medication list ? na Additional comments: I did not talk with pt. about his medications. I found seven medications via [facility] e-scripts and [facility] confirmed these seven medications. [facility] reported Buspar dosing schedule as 15mg BID and hydroxyzine dosing schedule as 25mg TID PRN. Hydroxyzine was last filled on 05/03/2021 so the pt. may be out of medication. Buspar was last filled on 04/24/2021 for 90ds. Risperdal was added to the TIPPLE TENDER list and filled on 05/03/2021 for 90ds. Required follow up actions for nursing; Please verify TIPPLE TENDER medications, when possible, with pt. or family. Also verify pharmacy. The below information represents the best possible medication history: Yes Medication history completed by: Health Associate: Aurelio Sierra (Live Study Manager) Source of history: Pharmacy records: [facility]script [facility] [phone] Medication nonadherence identified: Unable to assess Reconciliation completed: No, pharmacist not yet reviewed Patient interested in Bedside Delivery Services or using OP Pharmacy at discharge? Unable to assess Preferred outpatient pharmacy: [facility]- [facility] [address] - [address] [facility] [phone] Allergies: Codeine Vomiting Prior to Admission Medications [...] once daily. Facility-Administered Medications: None Aurelio Sierra ([employer]) phone [phone] 07/25/2021 [facility] 07-25-2021 Note HNO ID: [id number] Author: Edilma Conrad RN Service: Care Management Author Type: Registered Nurse Type: Care Mgt Progress Note Filed: 07/25/2021 12:42 PM Note Text: CARE MANAGEMENT PROGRESS NOTE SERVICE DATE: 07/25/2021 SERVICE TIME: 12:41 PM LOS: 4 days Needs Prior to Discharge: To Be Determined DC plan: Home with [facility] Dc date: TBD Sun/? Barrier: Chest tube. Pain [facility] referral requested today. Anticipate SN, PT/OT. Possible wound care for surgical site and chest tube site- once removed. SIGNATURE: Edilma Conrad RN PATIENT NAME: Tien Alexandre DATE: July 25, 2021 TIME: 12:41 PM PAGER/CONTACT #: [phone] [facility] documented as of this encounter (statuses as of 08/02/2021) [facility]05-23-2022 History of Past illness Narrative* Problem Noted Date Resolved Date Acute blood loss anemia 07/25/2021 07/30/19 22 Ileus 07/25/2021 07/29/2021 Fall from ladder 07/22/2021 07/29/2021 documented as of this encounter (statuses as of 08/11/2021) [facility]05-23-20[facility] History of Past illness Narrative* Problem Noted Date Resolved Date Acute blood loss anemia 07/25/2021 07/30/19 22 Ileus 07/25/2021 07/29/2021 Fall from ladder 07/22/2021 07/29/2021 documented as of this encounter (statuses as of 08/12/2021) [facility] History of Past illness Narrative* Problem Noted Date Resolved Date Acute blood loss anemia 07/25/2021 07/30/19 22 Ileus 07/25/2021 07/29/2021 Fall from ladder 07/22/2021 07/29/2021 documented as of this encounter (statuses as of 11/09/2021) [facility] History of Past illness Narrative* Problem Noted Date Resolved Date Acute blood loss anemia 07/25/2021 07/30/19 22 Ileus 07/25/2021 07/29/2021 Fall from ladder 07/22/2021 07/29/2021 documented as of this encounter (statuses as of 11/10/2021) [facility]05-23-2022 NoteHNO ID: [id number] Author: Alexandro Brantley MD Service: General Surgery [...] 0659 07/25/21 0700 - 07/26/21 0659 Shift 3561-8539 8890-1948 2779-6210 24 Hour Total 9210-2762 9848-1801 5541-8413 24 Hour Total INTAKE IV 2403 1112 3515 Volume (mL) (ceFAZolin 3 g in D5W 100 mL (ANCEF)) 200 200 Volume (mL) (NaCl 0.9% iv infusion) 203 1112 1315 Volume (mL) (lactated ringers iv infusion) 1000 1000 Volume (mL) (NaCl 0.9% iv infusion) 1000 1000 Shift Total 2403 1112 3515 OUTPUT Urine 700 763 940 4229 Void (ml) 350 350 OR Urine Output 350 350 Output ( Indwelling Urinary Catheter 07/24/21 Coude 18 Fr) 177 221 2178 Chest Tube 5 73 109 187 Chest Tube Output ([REMOVED] Chest Tube 07/22/21 1600 Left Lateral Pleural 24 Fr Tube #1 07/24/21 1025) 5 5 Chest Tube Output (Chest Tube 07/24/21 Left Lateral Pleural 28 Fr Tube #1) 73 109 182 # of BMs Number of BMs 0 x 0 x Shift Total 823 714 7809 2332 Weight (kg) 123.4 123.4 123.4 123.4 [...] Atrial Fibrillation) (Hcc) Rbbb (more content not included)...[facility]05-23-2022 Note HNO ID: [id number] Author: Sepideh Ornelas MD Service: General Surgery Author Type: Physician Type: Progress Notes Filed: 07/25/2021 5:11 PM Note Text: Trauma Surgery Progress Note SERVICE DATE: 07/25/2021 Trauma Service Pager: For questions or concerns Mon-Fri 6a-5p please page [phone]. After 5pm and on Weekends and Holidays, please page [phone] if in ICU or [phone] if on RNF. SUBJECTIVE: No acute events [...] 0659 07/25/21 07 - 07/26/21 0659 Shift 3965-8333 4451-4890 3192-1677 24 Hour Total 1078-1703 5001-3835 9097-6806 24 Hour Total INTAKE IV 2403 1112 3515 Volume (mL) (ceFAZolin 3 g in D5W 100 mL (ANCEF)) 200 200 Volume (mL) (NaCl 0.9% iv infusion) 203 1112 1315 Volume (mL) (lactated ringers iv infusion) 1000 1000 Volume (mL) (NaCl 0.9% iv infusion) 1000 1000 Shift Total 2403 1112 3515 OUTPUT Urine 700 124 415 2669 Void (ml) 350 350 OR Urine Output 350 350 Output ( Indwelling Urinary Catheter 07/24/21 Coude 18 Fr) 447 961 1703 Chest Tube 5 73 109 187 Chest Tube Output ([REMOVED] Chest Tube 07/22/21 1600 Left Lateral Pleural 24 Fr Tube #1 07/24/21 1025) 5 5 Chest Tube Output (Chest Tube 07/24/21 Left Lateral Pleural 28 Fr Tube #1) 73 109 182 # of BMs Number of BMs 0 x 0 x Shift Total 281 009 6780 2332 Weight (kg) 123.4 123.4 123.4 123.4 [...] place without obvious air (more content not included)...[facility]05-22-2022 NoteHNO ID: [id number] Author: Howard Hunt APRN.CRNA Service: Nursing Author Type: Nurse Dowel Sticker Operator Type: Anesthesia Procedure Notes Filed: 07/24/2021 2:29 [...] well with no complications SIGNATURE: Howard Hunt APRN.OUTPATIENT SCHEDULER PATIENT NAME: Tien Alexandre DATE: July 24, 2021 TIME: 2:28 PM CSN: [id number] [facility]05-22-2022 NoteHNO ID: [id number] Author: Sepideh Ornelas MD Service: General Surgery [...] 07/24/21 0659 07/24/21699 - 07/25/21 0659 Shift 3573-9545 7660-0586 7942-5266 24 Hour Total 2389-1914 0935-7168 9039-4814 24 Hour Total INTAKE IV 1990 1990 [...] 1025) 110 110 5 5 Shift Total 865 017 2001 555 555 Weight (kg) 119.1 119.1 123.4 [...] this interval not disp (more content not included)...[facility]05-21-2022 NoteHNO ID: [id number] Author: Janett Griffith RN Service: Nursing Author Type: Registered Nurse Type: Nursing Progress Note Filed: 07/23/2021 10:17 AM Note Text: Patient was able to urinate out 375ml. No straight cath needed. [facility]05-21-2022 NoteHNO ID: [id number] Author: Denia Bragg APRN.CNP Service: General Surgery [...] moderate PTX 3D recon imaging available in [facility] Discussed ORIF of rib fractures with [...] more ribs (07/21/2021) PAF (paroxysmal atrial fibrillation) ([facility]) () Anticoagulant long-term use () Obesity, Class II, BMI 35-39.9 (12/13/2020) Fall from ladder (07/22/2021) Sepideh Ornelas MD Department of General Surgery Division of Trauma, Critical Care, and Acute Care Surgery July 23, 2021 12:30 PM Trauma Surgery Progress Note SERVICE DATE: 07/23/2021 Trauma Service Pager: For questions or concerns Mon-Fri 6a-5p please page [phone]. After 5pm and on Weekends and Holidays, please page [phone] if in ICU or [phone] if on RNF. SUBJECTIVE: NAEON. Patient reporting [...] 0659 07/23/21 0700 - 07/24/21 0659 Shift 9591-5934 5103-8949 9321-1744 24 Hour Total 6744-8499 8925-1385 0581-1750 24 Hour Total INTAKE PO 120 120 [...] BMs 0 x 0 x Shift Total 854 821 8343 80 80 Weight (kg) 119.1 119.1 119.1 [...] rales. Breathing is no (more content not included)...[facility] 07-23-2021 NoteHNO ID: [id number] Author: Janett Griffith RN Service: Nursing Author Type: Registered Nurse Type: Nursing Progress Note Filed: 07/22/2021 11:43 PM Note Text: Bladder scan show 311 [facility]05-20-2022 NoteHNO ID: [id number] Author: Sepideh Ornelas MD Service: General Surgery Author Type: Physician Type: Procedures Filed: 07/22/2021 4:23 PM Note Text: BEDSIDE PROCEDURE NOTE CHEST TUBE Date/Start Time: 07/22/2021 4:00 PM Performed by: Parish Parikh MD Authorized by: Sepideh Ornelas MD This procedure has been performed in part by a resident/fellow under attending's direction Informed Consent Consent Obtained: Written [place] Protocol SIGN IN Sign in communication not [...] provide assistance. Sepideh Ornelas MD 07/22/21 4:23 [facility]05-20-2022 NoteHNO ID: [id number] Author: Amy Bernal RN Service: Care Management Author Type: Registered Nurse Type: Care Mgt Initial Assessment Filed: 07/22/2021 10:17 AM Note Text: CARE MANAGEMENT: ASSESSMENT AND DISCHARGE PLAN SERVICE DATE: July 22, 2021 SERVICE TIME: 10:14 AM PRIMARY CARE PHYSICIAN: Ravinder Ernandez MD ADMISSION STATUS: Inpatient Needs Prior to Discharge: To Be Determined;OT/PT Evaluation MEDICAL: [employer] Patient/[employer] Stated Goals: To have reduction in symptoms;To have reduction in pain;To return home to life as it was Health [facility] Issues Impacting Discharge Plan: Chronic Chronic: Afib, RBBB, SOB Last Discharge Date: N/A Is this Within the Past 30 days? Last discharge within 30 days: No Advance Directive: Current Advance Directive: None Tariff Compiling Clerk Attempted to Assist with AD Completion: Yes [...] None Has the Patient Been in a [facility] Facility in the Past 30 days?: No SOCIAL: Living Arrangements: Home Lives With: Spouse Financial Resources: Employed Primary Contact: Extended Emergency Contact Information Primary Emergency Contact: Jasmina Alexandre Mobile Relation: Spouse Supportive Patient Contact:: Yes Contact Resources: Family Family Name/Phone: Jasmina Alexandre [phone] Caregiver AssessmentCaregiver is ready, willing and able [...] Mostly I feel financially burdened by my [id number] expenses for my prescription medication:: 0 - Disagree Mostly Risk Score: 0 Patient is categorized as: Low risk < 2 Are you interested in bedside delivery of your medications? No Is Patient Psychosocially Complex?: No ASSESSMENT AND PLAN: Medical Needs: Medical Needs: Two or more chronic diseases Psychosocial Needs: Psychosocial Needs: None FREEDOM OF CHOICE EXPLAINED: [place] of Choice Given: No Reason Not Given: Unable to complete with this assessment - revisit (need PT/OT recs) POTENTIAL TRANSITION PLANS To Be Determined Spoke with patient. 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 No DME, O2. Family [...] 22, 2021 TIME: 10:14 AM PAGER/CONTACT #: [phone] NoteHNO ID: [id number] Author: Denia Bragg APRN.CHILD PSYCHOLOGIST Service: General Surgery Author Type: Nurse Practitioner Type: Progress Notes Filed: 07/22/2021 8:58 AM Note Text: Trauma Surgery Progress Note SERVICE DATE: 07/22/2021 Trauma Service Pager: For questions or concerns Mon-Fri 6a-5p please page [phone]. After 5pm and on Weekends and Holidays, please page [phone] if in ICU or [phone] if on RNF. SUBJECTIVE: NAEON. Patient reporting [...] 0659 07/22/21 0700 - 07/23/21 0659 Shift [id number] 24 Hour Total [id number] [id number] 24 Hour Total INTAKE PO 120 120 [...] Eliquis Imaging performed: 1. CT [facility] @ [place] (07/21) 2. CXR, XR L femur (07/21) 3. CXR (07/22) Traumatic Injuries: 1. Left lateral 2-9 rib fractures, posterior 3-9 rib fractures 2. Small (<5%) left pneumothorax Operations/Procedures: 1. None Care Plan: 1. Left 2-9 rib fx in 2 places, pneumothorax 1. Pulmonary hygiene 2. Pain control 3. 2V CXR 07/22 pending 4. Imaging from [place] to be uploaded 1. Will discuss possible [...] 1. TBD - will follow up on [place] imaging Follow Up Needs: 1. TBD Staff Trauma Surgeon: Dr. Ornelas SIGNATURE: Denia Bragg APRN.CHILD PSYCHOLOGIST PATIENT NAME: Tien Alexandre DATE: 07/22/2021 TIME: 8:50 AM Pager: see below Trauma Service Pager: For questions or concerns Sun-Sun 6a-5p please page [phone]. (more content not included)...[facility]10[facility] NoteHNO ID: [id number] Author: Gualberto Redding MD Service: ? Author Type: Physician Type: Progress Notes Filed: 12/13/2020 7:33 PM Note Text: PRIMARY CARE PHYSICIAN: Ravinder Ernandez MD ([facility]) [address] [place] [address] REFERRING PHYSICIAN: Cleveland Perez MD ([facility]) [address] [place] [phone] Patient Care Team: Ravinder Ernandez as PCP - General (Family Practice) Cleveland Perez as Specialty Fish Smoker (Cardiology) CHIEF COMPLAINT: Evaluation of arrhythmia, atrial [...] Eliquis. He was already following with a workforce development specialist, Dr. Perez, as he had been evaluated [...] - At risk for stroke low risk, [id number] = 0 - Chest pain - Mixed [...] Heart sounds: Normal he (more content not included)...[facility]ments Appointment Date:01/25/2022 03:00:00 PM Scheduled Provider:DANA RICARDO DO Location:[facility] Appointment Type:[facility] Future Scheduled Tests Laboratory* Prostate Specific Antigen 09/09/21 * Thyroid Stimulating Hormone 09/09/21 * Complete Blood Count 09/09/21 * Lipid Profile 09/09/21 * Hepatitis C Antibody IgG 09/09/21 * Vitamin D Level 09/09/21 * Complete Metabolic Panel 09/09/21 [facility] Evaluation + Plan note Future Appointments Appointment Date:01/25/2022 03:00:00 PM Scheduled Provider:DANA RICARDO DO Location:[facility] Appointment Type: OV [facility] Evaluation + Plan note Future Appointments Appointment Date:05/30/2022 10:00:00 AM Scheduled Provider:DANA RICARDO DO Location:[facility] Appointment Type:PC OV [facility] Evaluation + Plan note Future Appointments Appointment Date:12/12/2022 08:30:00 AM Scheduled Provider:DANA RICARDO DO Location:[facility] Appointment Type:PC OV Future Scheduled Tests Laboratory* Basic Metabolic Panel 08/29/22 * Thyroid Stimulating Hormone 08/29/22 * Free T4 08/29/22 * Uric Acid 08/29/22 * A1C Hemoglobin 08/29/22 * Complete Blood Count 08/29/22 * Lipid Profile 08/29/22 * Albumin/Creatinine Ratio, Random Urine 08/29/22 [facility] Evaluation + Plan note Future Appointments Appointment Date:12/12/2022 08:30:00 AM Scheduled Provider:DANA RICARDO DO Location:[facility] Appointment Type: OV Future Scheduled Tests Laboratory* Albumin/Creatinine Ratio, Random Urine 08/29/22 [facility] Evaluation note* Diagnosis Multiple rib fractures involving four or more ribs- Primary documented in this encounter [facility] note* Diagnosis Closed fracture of multiple ribs of left side, initial encounter Traumatic pneumothorax, subsequent encounter documented in this encounter [facility] note* Diagnosis Multiple rib fractures involving four or more ribs documented in this encounter [facility] course Narrative No data available for this section [facility] Hospital Discharge instructions No data available for this section [facility] Progress note No data available for this section [facility] Summary Purpose Family History No Family History Records FoundNo Family History Records FoundNo Family History Records FoundNo Family History Records Found No data available for this section No data available for this section No Family History Records Found Advance Directives No Advanced Directives Records FoundDocuments on File Type Date Recorded Patient [employer] Expl anation Advance Directive(s) 07/21/2021 10:00 PM Additional Source Comments (unrecognized sect ion and content) No Status Records FoundNo Status Records FoundNo Status Records FoundNo Status Records FoundNo Status Records Found INFORMATION SOURCE (unrecogn ized section and content) DATE CREATED AUTHOR AUTHOR'S ORGANIZ ATION 09/22/2019 [facility] DATE CREATED AUTHOR AUTHOR'S ORGANIZ ATION 08/03/2021 [facility] DATE CREATED AUTHOR AUTHOR'S ORGANIZ ATION 11/11/2021 [facility] DATE CREATED AUTHOR AUTHOR'S ORGANIZ ATION 12/10/2022 [facility] ([place]) Source Comments (unrecognize d section and content) In the event this informatio n is protected by the Federal Confidentiality of Alcohol and Drug Abuse Patient Records regulations: The Federal rules restrict any use of the information to criminally investigate or prosecute any alcohol or drug abuse patient.[facility] the event this information is protected by the Federal Confidentiality of Alcohol and Drug Abuse Patient Records regulations: The Federal rules restrict any use of the information to criminally investigate or prosecute any alcohol or drug abuse patient.[facility] the event this information is protected by the Federal Confidentiality of Alcohol and Drug Abuse Patient Records regulations: The Federal rules restrict any use of the information to criminally investigate or prosecute any alcohol or drug abuse patient.[facility] the event this information is protected by the Federal Confidentiality of Alcohol and Drug Abuse Patient Records regulations: The Federal rules restrict any use of the information to criminally investigate or prosecute any alcohol or drug abuse patient.[facility] the event this information is protected by the Federal Confidentiality of Alcohol and Drug Abuse Patient Records regulations: The Federal rules restrict any use of the information to criminally investigate or prosecute any alcohol or drug abuse patient.[facility] Reason for Visit (unrecogniz ed section and content) Reason Comments Post Op rib plating Reason Comments Rib Injury Care Teams (unrecognized sec tion and content) Cyber Security Relationship Specialty Start Date End Date NguyendianeRavinder nesbitt PCP - General Family Practice 01/09/16 Cleveland Perez [address] [place] [phone] Specialty Fish Smoker Cardiology 12/10/20 Cyber Security Relationship Specialty Start Date End Date Ravinder Ernandez PCP - General Family Practice 01/09/16 Cleveland Perez [address] [place] [phone] Specialty Fish Smoker Cardiology 12/10/20 Cyber Security Relationship Specialty Start Date End Date Ravinder Ernandez PCP - General Family Practice 01/09/16 Cleveland Perez [address]N [address] [place] [phone] Specialty Fish Smoker Cardiology 12/10/20 Care Team (unrecognized sect ion and content) Care Team Personnel Name: DANA RICARDO DO Position: P4 Physician - Primary Care Member Role: Primary Care Physician Address: Address: [address] [place] [address] Care Team Related Persons Name: JASMINA ALEXANDRE Care Team Personnel Name: DANA RICARDO DO Position: P4 Physician - Primary Care Member Role: Primary Care Physician Address: Address: [address] [place] [address] Care Team Related Persons Name: JASMINA ALEXANDRE [...] BE BASED ON THE PRIMARY CLINICAL RECORDS. [facility] [employer] [facility]. provides no warranty or guarantee of the accuracy or completeness of information in this document.
== END | disposition home or self-care (01) ==
LOC: PSN 08:58
PROVIDERS: Referring Provider Physician Assistant Medical; Visit Provider Physician Assistant Medical
DX: I48.19 Other persistent atrial fibrillation (principal); R06.02 Shortness of breath
CPT/HCPCS: 93225; 93226

== ENCOUNTER → 2023-03-29 | Outpatient (CLI) | payer OTHER, SELFPAY ==
--- NOTE | 2023-03-29 06:31 | ECHOCS_ITS ---
Version 2 Reason For Study: SOB Procedure This was a 2D Doppler, Color Flow transthoracic echocardiogram. The study was technically difficult. Contrast injection was performed. Exam performed in department. Left Ventricle Normal LV size. Left ventricular systolic function is normal. The estimated ejection fraction is 65 %. No regional wall motion abnormalities noted. Right Ventricle Normal RV size. Normal systolic function. Atria Normal left atrium. Normal right atrium. Mitral Valve There is mild mitral annular calcification. Tricuspid Valve Normal tricuspid valve. Mild tricuspid valve insufficiency. Pulmonary artery systolic pressure is 24 mmHg. Aortic Valve Trisinus/trileaflet aortic valve. Pulmonic Valve Normal pulmonic valve. Great Vessels Normal aortic root. The pulmonary artery is normal size. Inferior vena cava collapse with respiration. Pericardium/Pleural No pericardial effusion. Medication 20 gauge I.V. with prn adaptor inserted into right arm. Diluted definity 2ml given slow IV push to enhance endocardial definition. MMode/2D Measurements & Calculations LVIDd: 5.0 cm IVSd: 1.1 cm Ao root diam: 3.7 cm LVIDs: 3.9 cm LVPWd: 1.5 cm LA dimension: 5.0 cm RVDd: 3.8 cm FS: 22.2 % LAV(MOD-bp): 80.3 ml LVAd ap4: 32.5 cm2 SV(MOD-sp4): 51.7 ml LAV(MOD-bp) Indexed: 34.2 ml/m2 LVLd ap4: 8.3 cm LAV(MOD-sp2): 67.6 ml EDV(MOD-sp4): 99.4 ml LAV(MOD-sp4): 79.8 ml EDV(sp4-el): 107.3 ml LVAs ap4: 20.8 cm2 LVLs ap4: 7.4 cm ESV(MOD-sp4): 47.7 ml ESV(sp4-el): 49.5 ml EF(MOD-sp4): 52.0 % EF(sp4-el): 53.8 % SV(sp4-el): 57.8 ml LA A4 area: 26.0 cm2 RA A4 area: 23.1 cm2 TAPSE: 1.9 cm Doppler Measurements & Calculations MV E max braydon: 95.7 cm/sec MV V2 max: 98.0 cm/sec Ao V2 max: 129.4 cm/sec MV max P.9 mmHg Ao max P.8 mmHg MV V2 mean: 40.6 cm/sec Ao V2 mean: 93.2 cm/sec MV mean P.94 mmHg Ao mean P.0 mmHg MV V2 VTI: 18.6 cm Ao V2 VTI: 25.2 cm LV V1 max: 83.4 cm/sec PA V2 max: 71.3 cm/sec TR max braydon: 233.6 cm/sec LV V1 max P.8 mmHg TR max P.8 mmHg ECHO/Echo Complete W/ Contrast Interpretation Summary Normal LV size. Left ventricular systolic function is normal. The estimated ejection fraction is 65 %. No regional wall motion abnormalities noted. Contrast injection was performed. Ordering Physician: Renu Dean Referring Physician: Renu Dean Performed By: Sohan Dhillon RCS
--- OUTSIDE RECORDS SUMMARY | 2023-03-29 06:35 | XMS RPT_ITS | CCD ---
Author Name Unknown Address [address] [place] [address] Organization [facility] Care Team Providers Care Master Control Engineer Name Role Phone JUNE BENTLEY Unavailable Unavailable JAMES LORA Unavailable Unavailable JAMES LORA Unavailable Unavailable JUNE BENTLEY Unavailable Unavailable Ravinder Ernandez Primary Care Provider [phone] [place] Perez Unavailable Ravinder Ernandez Primary Care Provider [phone] [place] Perez Unavailable DANA RICARDO DO Primary Care Physician DANA RICARDO DO Attending Unavailable DANA RICARDO DO Primary Care Unavailable DANA RICARDO DO Attending Unavailable DANA RICARDO DO Primary Care Unavailable DANA RICARDO DO Attending Unavailable DANA RICARDO DO Primary Care Unavailable DANA RICARDO DO Primary Care Unavailable DANA RICARDO DO Attending Unavailable DANA RICARDO DO Primary Care Unavailable DANA RICARDO DO Attending Unavailable DANA RICARDO DO Primary Care Unavailable DANA RICARDO DO Attending Unavailable Allergies Allergy Classification Reported Allergen(s) Allergy Type Date of Onset Reaction(s) Facility (10 sources) Codeine; Translations: [codeine] Drug Allergy 01-09-2016 [facility] Medications Current Medications Medication Drug Class(es) Dates Sig (Normalized) Sig (Original) allopurinol 100 mg oral tablet (3 sources) Xanthine Oxidase Inhibitor Start: 08-29-2022 allopurinol 100 mg oral tablet Dose : 100 mg = 1 tab(s), Oral, qDayPC, # 90 tab(s), 0 Refill(s), Pharmacy: [facility]/pharmacy #[id number], Gout, 180, cm, 08/29/22 9:32:00 EDT, Height, [...] sources) Long-term current use of anticoagulant; 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] 07-22-2021 Episodic Other [...] Date Time Vital Sign Value Performing Clinician Gustavo pattony 08-11-2021 13:08-0400 Body height 177.8 cm Acute 359 Work Phone: [facility] 08-11-2021 13:08-0400 Body weight 113.4 kg Acute 359 Work Phone: [facility] 08-11-2021 13:08-0400 Diastolic blood pressure 86 mm[Hg] Acute 359 Work Phone: [facility] 08-11-2021 13:08-0400 Heart rate 86 /min Acute 359 Work Phone: [facility] 08-11-2021 13:08-0400 Respiratory rate 20 /min Acute 359 Work Phone: [facility] 08-11-2021 13:08-0400 SaO2% (BldA) [Mass fraction] 98 % Acute 359 Work Phone: [facility] 08-11-2021 13:08-0400 Systolic blood pressure 129 mm[Hg] Acute 359 Work Phone: [facility] Encounters Encounter Date Encounter Type Care Provider Facility Start: 03-14-2023 ambulatory DANA Cecil RICARDO DO Faci lity:A Start: 12-06-2022 End: 12-07-2022 ambulatory DANA E RICARDO DO Facility:B Start: 12-06-2022 End: 12-06-2022 Patient encounter procedure DANA Cecil RICARDO DO [facility] Start: 10-17-2022 End: 10-18-2022 ambulatory DANA E RICARDO DO Facility:B Start: 10-17-2022 End: 10-17-2022 Patient encounter procedure DANA Jacob RICARDO DO [facility] Start: 08-23-2022 End: 08-24-2022 ambulatory DANA E RICARDO DO Facility:B Start: 07-26-2022 End: 07-27-2022 ambulatory DANA E RICARDO DO Facility:B Start: 05-25-2022 End: 05-26-2022 ambulatory DANA E RICARDO DO Facility:B Start: 05-25-2022 End: 05-25-2022 Patient encounter procedure DANA Jacob RICARDO DO [facility] Start: 05-25-2022 End: 05-25-2022 Well adult monitoring check done DANA RICARDO DO [facility] Start: 01-02-2022 End: 01-02-2022 Patient encounter procedure KAITLIN GAMBOA RN [facility] MEDICAL AND LAB DIRECTOR [facility] Start: 11-23-2021 End: 11-23-2021 Patient encounter procedure DANA RICARDO DO [facility] Start: 11-10-2021 End: 11-10-2021 ambulatory Acute 359 Work Phone: [facility] Procedures Date Procedure Procedure Detail Performing Clinician Start: 08-11-2021 Radiologic exam ches t 2 views Denia Drain RN D[facility]EST[facility] MEDICAL AND LAB DIRECTOR Work Phone: Start: 07-24-2021 Antibody screen Plan of Treatment Date Care Activity Detail Author Start: 07-29-2024 DIABETES SCREEN DIABETES SCREEN [facility] Start: 10-30-2022 LIPID SCREEN LIPID SCREEN [facility] Start: 02-09-2022 End: 12-10-2022 Radiologic exam chest 2 views XR CHEST 2V FRONTAL/LAT Radiology Routine Multiple rib fractures involving four or more ribs Expected: 02/09/2022 (Approximate), Expires: 12/10/2022 [facility] Work Phone: Immunizations Immunization Date Immunization Notes Care Provider Fa thomas 08-29-2022 tetanus toxoid, redu rian diphtheria toxoid, and acellular pertussis vaccine, adsorbed; Translations: [Boostrix (Tdap)] DANA RICARDO DO [facility] 08-29-2022 zoster vaccine recombinant; Translations: [Shingrix] DANA RICARDO DO [facility] 03-21-2022 influenza virus vaccine, unspecified formulation DANA RICARDO DO [facility] 10-05-2021 SARS-CoV-2 mRNA (tozinameran) vaccine DANA RICARDO DO [facility] Payers Date Payer Category Payer Unknown [id number] 2021 Unknown [employer] [id number] 2021-Present [phone] [address] [place] [address] PPO [id number] 2021 Unknown [employer] [id number] 2021-Present [phone] [address] [place] [address] PPO [id number] 2015 Unknown [id number] 1955 Unknown [id number] 1955 Unknown [id number] 1955 Unknown [id number] 1955 Unknown [id number] 1955 Unknown [id number] 1955 Unknown [id number] Social History Date Type Detail Facility Start: 01-09-2016 End: 12-03-2019 Tobacco smoking status NHIS Never smoked tobacco [facility] Start: 01-09-2016 End: 2020 Tobacco use and exposure Smokeless tobacco non-user [facility] Start: 12-13-2020 End: 08-11-2021 Alcohol intake Current drinker of alcohol (finding) [facility] Start: 2020 History SDOH Alcohol Comment occassional [facility] Start: 1955 Sex Assigned At Not on file [facility] Start: 07-19-2021 End: 07-29-2021 Exposure to SARS-CoV-2 (event) Unable to assess [facility] Start: 08-01-2021 End: 11-08-2021 Exposure to SARS-CoV-2 (event) Not sure [facility] Sex Assigned At Male [facility] Procedure Code Equipment Code Equipment [...] Clinical Notes 12-13-2020 to 01-02-2022 Denia Drain, RN DIGEST[facility]CENTER MEDICAL AND LAB DIRECTOR - 11/10/2021 12:42 PM EDTAurelio Kelsey PA-C - 08/11/2021 3:02 PM RT Santi(Jameson) - 08/11/2021 12:15 PM EDT Note Date [...] Date: 01/02/2022 4:14:48 PM Ordering Provider: KAITLIN [facility] 01-02-2022 Note ORIGINAL HISTORY: Elevated liver [...] Sign Date: 01/02/2022 4:14:48 PM Ordering Provider: [facility] 11-10-2021 Note HNO ID: [id number] Author: Denia Bragg APRN.JILLIAN Service: ? Author Type: Nurse Practitioner Type: [...] old male s/p fall from ladder on [employer] on 07/21/2021, underwent rib plating on 07/24/2021 [...] time spent on medical discussion: 5 minutes [id number] SIGNATURE: Denia Bragg APRN.CNP PATIENT NAME: Tien Alexandre DATE: November 10, 2021 TIME: 12:42 PM Pager: [facility] 11-10-2021 History of Presen t illness Narrative [...] male s/p fall from ladder on Eliquis on 07/21/2021, underwent rib plating on 07/24/2021 [...] time spent on medical discussion: 5 minutes [id number] SIGNATURE: Denia Bragg APRN.CNP PATIENT NAME: Tien Alexandre DATE: November 10, 2021 TIME: 12:42 PM Pager: documented in this encounter [facility] 08-11-2021 Note HNO ID: [id number] Author: Aurelio Kelsey PA-C Service: ? Author Type: Physician Coil Cleaner Type: Progress Notes Filed: 08/11/2021 3:13 PM Note Text: Trauma Clinic Note SERVICE DATE: 08/11/2021 Trauma Service Pager: For questions or concerns Mon-Fri 6a-5p please page [phone]. After 5pm and [...] August 11, 2021 TIME: 3:02 PM Pager: [phone] (text page) [facility] 08-11-2021 History of Presen t illness Narrative Images from the original note were not included. Trauma Clinic Note SERVICE DATE: 08/11/2021 Trauma Service Pager: For questions or concerns Mon-Fri 6a-5p please page [phone]. After 5pm and on Weekends and Holidays, please page [phone] if in ICU or [phone] if on RNF. SUBJECTIVE: Patient presents to [...] August 11, 2021 TIME: 3:02 PM Pager: [phone] (text page) documented in this encounter [facility] 08-11-2021 Note HNO ID: [id number] Author: LATASHA Elizabeth) Service: Radiology Author Type: [...] IV DATA: Not applicable SIGNED BY: RT Glenn(R) August 11, 2021 12:35 PM [facility] 08-11-2021 History of Presen t illness Narrative [...] 2021 12:35 PM documented in this encounter [facility] 08-02-2021 Miscellaneous Notes PATIENT INFORMATION Record ID: [id number] Patient Name: Tien Alexandre Hospital: [facility] [place]: [facility] Attending: Alexandro Brantley Center: General Surgery [facility] INSTRUCTIONS All Clear SN to remind patient of next upcoming appointment date, time, location All Clear All Clear All Clear SURVEY INFORMATION Medical/Nurse Coil Cleaner: Garo Sargent 1. Your discharge instructions are [...] (Standard Question) No documented in this encounter [facility] 07-29-2021 Note HNO ID: [id number] Author: Sameera Richter RN Service: Care Management Author Type: Registered Nurse Type: Care Mgt Progress Note Filed: 07/29/2021 11:07 AM Note Text: CARE MANAGEMENT DISCHARGE NOTE SERVICE DATE: 07/29/2021 SERVICE TIME: 11:04 AM LOS: 8 days Admission Date: 07/21/2021 DISCHARGE ARRANGEMENT (list agency and phone number) Discharge Arrangement: Home with Home Health Provider Name: [facility] CAREGIVER ASSESSMENT: Caregiver is ready, willing [...] Handoff to: Other Caregiver Other Caregiver Name/Phone: [facility]/ Bedside RN to give patient discharge instructions TRANSPORTATION ARRANGEMENTS: Transportation Arrangements: Car Needs Prior to Discharge: Ready for Discharge Discharge today. Discharge orders complete. Plan is home with skilled home health care and home therapy services. [facility] is able to accept patient. C aware of discharge home today. Physician order placed for home care services: Yes. Start of care date: [facility] will reach out to patient to confirm start of care date. Patient/Family agreeable to discharge plan: Yes. Will continue to follow for further DC planning needs. SIGNATURE: Sameera Richter RN PATIENT NAME: Tien Alexandre DATE: July 29, 2021 TIME: 11:04 AM PAGER/CONTACT #: [phone] [facility] 07-29-2021 Note HNO ID: [id number] Author: Denia Bragg APRN.CNP Service: General Surgery Author Type: Nurse Practitioner Type: Progress Notes Filed: 07/29/2021 8:01 AM Note Text: Trauma Surgery Progress Note SERVICE DATE: 07/29/2021 Trauma Service Pager: For questions or concerns Mon-Fri 6a-5p please page [phone]. After 5pm and on Weekends and Holidays, please page [phone] if in ICU or [phone] if on [...] O2 Therapy: Room Air IANDO: Date 07/28/21 07 - 07/29/21 0659 07/29/21 07 - 07/30/21 0659 Shift 6095-0239 3548-4817 9099-1839 24 Hour Total 4835-5765 1732-7605 6298-2962 24 Hour Total INTAKE Shift Total OUTPUT [...] 35-39.9 12/13/2020 - PAF (paroxysmal atrial fibrillation) ([facility]) - Anticoagulant long-term use - Mixed hyperlipidemia 65 year old male s/p fall from ladder on Eliquis ? Imaging performed: 1. CT [facility] @ [place] (07/21) 2. 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 [facility] 07-28-2021 Note HNO ID: [id number] Author: Denia Bragg APRN.CENTER MEDICAL AND LAB DIRECTOR Service: General Surgery Author Type: Nurse Practitioner Type: Plan of Care Filed: 07/28/2021 9:12 AM Note Text: Left chest tube removed on maximal inspiration. Site covered with occlusive dressing. Patient tolerated well. ? 2V CXR ordered for 1pm today. Will obtain sooner if patient develops worsening chest pain or SOB. ? Denia Bragg APRN.CNP 07/28/2021 9:00 AM [facility] 07-28-2021 Note HNO ID: [id number] Author: Denia Bragg APRN.CNP Service: General Surgery Author Type: Nurse Practitioner Type: Progress Notes Filed: 07/28/2021 8:09 AM Note Text: Trauma Surgery Progress Note SERVICE DATE: 07/28/2021 Trauma Service Pager: For questions or concerns Mon-Fri 6a-5p please page [phone]. After 5pm and on Weekends and Holidays, please page [phone] if in ICU or [phone] if on RNF. SUBJECTIVE: NAEON. Patient reports [...] Therapy: Room Air IANDO: Date 07/27/21699 - 07/28/2165807/28/21699 - 07/29/21 0659 Shift 7414-6664 3377-3381 9858-0580 24 Hour Total 2750-7339 2912-8773 2037-6249 24 Hour Total INTAKE PO 600 600 [...] ? Imaging performed: 1. CT [facility] @ [place] (07/21) 2. CXR, XR L femur (07/21) 3. CXR (07/22) 4. CXR (07/23) 5. CXR (07/24) 6. CXR, KUB (07/25) 7. CXR (07/26) 8. CXR (07/27) 9. CXR (07/28) ? Traumatic Injuries: 1. Left lateral 2-9 rib fractures, posterior 3-9 rib fractures 2. Small (<5%) le (more content not included)... [facility] 07-27-2021 Note HNO ID: [id number] Author: Sameera Richter RN Service: Care Management [...] that can take his insurance. No preference. [facility] notified and is able to accept [...] 27, 2021 TIME: 7:44 AM PAGER/CONTACT #: [phone] [facility] 07-27-2021 Note HNO ID: [id number] Author: Asaf Ortega DO Service: General Surgery [...] questions or concerns Mon-Fri 6a-5p please page [phone]. After 5pm and on Weekends and Holidays, please page [phone] if in ICU or [phone] if on RNF. SUBJECTIVE: NAEON. Admits to [...] kg/m? O2 Therapy: Nasal Cannula IANDO: Date 07/26/21 07 - 07/27/21 0659 07/27/21 07 - 07/28/21 0659 Shift 0639-6932 6478-0206 9268-5816 24 Hour Total 8551-3932 0265-1497 8734-3962 24 Hour Total INTAKE PO 250 240 490 PO 250 240 490 Supplements (mL) 0 0 Shift Total 250 240 490 OUTPUT Urine 450 450 Urine Not Saved. 1 x 1 x 2 x Output ([REMOVED] Indwelling Urinary Catheter 07/24/21 Coude 18 Fr 07/26/21 0809) 450 450 Chest Tube 250 100 66 [...] Active Hospital Pr (more content not included)... [facility] 07-26-2021 Note HNO ID: [id number] Author: Jordi Roper MD Service: General Surgery [...] questions or concerns Mon-Fri 6a-5p please page [phone]. After 5pm and on Weekends and Holidays, please page [phone] if in ICU or [phone] if on RNF. SUBJECTIVE: The patient with [...] kg/m? O2 Therapy: Nasal Cannula IANDO: Date 07/25/21699 - 07/26/21 0659 07/26/21 07 - 07/27/21 0659 Shift 0795-4788 4981-5196 6464-4938 24 Hour Total 3052-2265 1352-7576 3335-7189 24 Hour Total INTAKE PO 470 200 670 PO 470 200 670 IV 207 917 1801 Volume (mL) (potassium phosphate 45 mmol in NaCl 0.9% 500 mL) 260 260 Volume (mL) (calcium gluconate 4 g in NaCl 0.9% 250 mL) 250 250 Volume (mL) (NaCl 0.9% iv infusion) 670 210 880 Shift Total 7027 288 7081 OUTPUT Urine 350 610 960 Output ( Indwelling Urinary Catheter 07/24/21 Coude 18 Fr) 350 610 960 Chest Tube 185 185 Chest Tube Output (Chest Tube 07/24/21 Left Lateral Pleural 28 Fr Tube #1) 185 185 Shift Total 181 767 6170 Weight (kg) 123.4 123.4 123.4 123.4 123.4 [...] 0259 07/25/21 0415 07/24/21 0425 07/24/21 0048 07/23/21201707/23/21 18007/23/211802 NA 134* 136 < > -- -- [...] HB 11.0* 1 (more content not included)... [facility] 07-25-2021 Note HNO ID: [id number] Author: Anitha Quinones [facility] Service: Pharmacy Author Type: Pharmacist Type: Plan of Care Filed: 07/26/2021 8:27 AM Note Text: Patient Name:Niko Alexandre : 1955 Reconciliation: Yes All GRAPHIC EDITOR medications addressed by LIP Additional comments: see below. Buspirone BID, not daily; hydroxyzine 25mg, not 100mg and TID PRN, not QHS prn. Risperidone 0.25mg/qhs added. Allergies: ALLERGIES Allergen Reactions - Codeine Vomiting Preferred Pharmacy: e- [facility]/pharmacy #[id number] [place] [address] - [address] [facility] [phone] Current GRAPHIC EDITOR Medications: Prior to Admission medications as of [...] by mouth once daily. Yes Anitha Quinones [facility] July 26, 2021 8:26 AM PHARMACY MEDICATION REVIEW Patient Name: Tien Alexandre : 1955 The following medications were updated within the GRAPHIC EDITOR medication list: Medications ADDED to GRAPHIC EDITOR medication list hydrOXYzine pamoate (VISTARIL) 25 mg capsule OTHER Yes Yes Sig: Take 25 mg by mouth three times daily as needed. Pharmacy reports TID PRN Medications CHANGED on GRAPHIC EDITOR medication list busPIRone (BUSPAR) 15 mg tablet OTHER Yes Yes Sig: Take 15 mg by mouth twice daily. Pharmacy reports BID Pharmacy reports TID PRN Medications REMOVED from GRAPHIC EDITOR medication list ? na Additional comments: I did not talk with pt. about his medications. I found seven medications via [employer] e-scripts and [facility] confirmed these seven medications. [facility] reported Buspar dosing schedule as 15mg BID and hydroxyzine dosing schedule as 25mg TID PRN. Hydroxyzine was last filled on 05/03/2021 so the pt. may be out of medication. Buspar was last filled on 04/24/2021 for 90ds. Risperdal was added to the GRAPHIC EDITOR list and filled on 05/03/2021 for 90ds. Required follow up actions for nursing; Please verify GRAPHIC EDITOR medications, when possible, with pt. or family. Also verify pharmacy. The below information represents the best possible medication history: Yes Medication history completed by: Rotating Equipment Specialist: Aurelio Sierra ([employer]) Source of history: Pharmacy records: Epic e-script and [facility] [phone] Medication nonadherence identified: Unable to assess Reconciliation completed: No, pharmacist not yet reviewed Patient interested in Bedside Delivery Services or using OP Pharmacy at discharge? Unable to assess Preferred outpatient pharmacy: [facility] [address] - [address] [facility] [phone] [id number] Allergies: Codeine Vomiting Prior to Admission Medications [...] once daily. Facility-Administered Medications: None Aurelio Sierra ([employer]) phone [phone] 07/25/2021 [facility] 07-25-2021 Note HNO ID: [id number] Author: Edilma Conrad RN Service: Care Management Author Type: Registered Nurse Type: Care Mgt Progress Note Filed: 07/25/2021 12:42 PM Note Text: CARE MANAGEMENT PROGRESS NOTE SERVICE DATE: 07/25/2021 SERVICE TIME: 12:41 PM LOS: 4 days Needs Prior to Discharge: To Be Determined DC plan: Home with HHC Dc date: Sun/? Barrier: Chest tube. Pain [facility] referral requested today. Anticipate SN, PT/OT. Possible wound care for surgical site and chest tube site- once removed. SIGNATURE: Edilma Conrad RN PATIENT NAME: Tien Alexandre DATE: July 25, 2021 TIME: 12:41 PM PAGER/CONTACT #: [phone] [facility] documented as of this encounter (statuses as of 08/02/2021) [facility]05-23-2022 History of Past illness Narrative* Problem Noted Date Resolved Date Acute blood loss anemia 07/25/2021 07/30/19 22 Ileus 07/25/2021 07/29/2021 Fall from ladder 07/22/2021 07/29/2021 documented as of this encounter (statuses as of 08/11/2021) [facility] History of Past illness Narrative* Problem Noted Date Resolved Date Acute blood loss anemia 07/25/2021 07/30/19 22 Ileus 07/25/2021 07/29/2021 Fall from ladder 07/22/2021 07/29/2021 documented as of this encounter (statuses as of 08/12/2021) [facility] History of Past illness Narrative* Problem Noted Date Resolved Date Acute blood loss anemia 07/25/2021 07/30/19 22 Ileus 07/25/2021 07/29/2021 Fall from ladder 07/22/2021 07/29/2021 documented as of this encounter (statuses as of 11/09/2021) [facility] History of Past illness Narrative* Problem Noted Date Resolved Date Acute blood loss anemia 07/25/2021 07/30/19 22 Ileus 07/25/2021 07/29/2021 Fall from ladder 07/22/2021 07/29/2021 documented as of this encounter (statuses as of 11/10/2021) [facility]05-23-2022 NoteHNO ID: [id number] Author: Alexandro Brantley MD Service: General Surgery Author Type: Physician Type: Progress Notes Filed: 07/25/2021 11:35 AM Note Text: INPATIENT SICU PROGRESS NOTE SICU Service Pager: For questions or concerns Mon-Fri 6a-5p please page [phone]. After 5pm and on Weekends and Holidays, please page [phone]. Subjective Subjective: S/p rib plating yesterday. Sitting [...] 0659 07/25/21 0700 - 07/26/21 0659 Shift 6856-6083 5195-6614 5787-9879 24 Hour Total 5190-1104 7159-2740 5614-7060 24 Hour Total INTAKE IV 2403 1112 3515 Volume (mL) (ceFAZolin 3 g in D5W 100 mL (ANCEF)) 200 200 Volume (mL) (NaCl 0.9% iv infusion) 203 1112 1315 Volume (mL) (lactated ringers iv infusion) 1000 1000 Volume (mL) (NaCl 0.9% iv infusion) 1000 1000 Shift Total 2403 1112 3515 OUTPUT Urine 700 993 301 4701 Void (ml) 350 350 OR Urine Output 350 350 Output ( Indwelling Urinary Catheter 07/24/21 Coude 18 Fr) 623 349 1457 Chest Tube 5 73 109 187 Chest Tube Output ([REMOVED] Chest Tube 07/22/21 1600 Left Lateral Pleural 24 Fr Tube #1 07/24/21 1025) 5 5 Chest Tube Output (Chest Tube 07/24/21 Left Lateral Pleural 28 Fr Tube #1) 73 109 182 # of BMs Number of BMs 0 x 0 x Shift Total 754 175 5165 2332 Weight (kg) 123.4 123.4 123.4 123.4 [...] Atrial Fibrillation) (Hcc) Rbbb (more content not included)...[facility]05-23-2022 Note HNO ID: [id number] Author: Sepideh Ornelas MD Service: General Surgery Author Type: Physician Type: Progress Notes Filed: 07/25/2021 5:11 PM Note Text: Trauma Surgery Progress Note SERVICE DATE: 07/25/2021 Trauma Service Pager: For questions or concerns Mon-Fri 6a-5p please page [phone]. After 5pm and on Weekends and Holidays, please page [phone] if in ICU or [phone] if on RNF. SUBJECTIVE: No acute events [...] kg/m? O2 Therapy: Nasal Cannula IANDO: Date 07/24/21 07 - 07/25/21 0659 07/25/21 0700 - 07/26/21 0659 Shift 1203-4310 5397-4113 0754-3032 24 Hour Total 8894-6984 4218-5873 9405-2374 24 Hour Total INTAKE IV 2403 1112 3515 Volume (mL) (ceFAZolin 3 g in D5W 100 mL (ANCEF)) 200 200 Volume (mL) (NaCl 0.9% iv infusion) 203 1112 1315 Volume (mL) (lactated ringers iv infusion) 1000 1000 Volume (mL) (NaCl 0.9% iv infusion) 1000 1000 Shift Total 2403 1112 3515 OUTPUT Urine 700 286 061 6402 Void (ml) 350 350 OR Urine Output 350 350 Output ( Indwelling Urinary Catheter 07/24/21 Coude 18 Fr) 751 534 9146 Chest Tube 5 73 109 187 Chest Tube Output ([REMOVED] Chest Tube 07/22/21 1600 Left Lateral Pleural 24 Fr Tube #1 07/24/21 1025) 5 5 Chest Tube Output (Chest Tube 07/24/21 Left Lateral Pleural 28 Fr Tube #1) 73 109 182 # of BMs Number of BMs 0 x 0 x Shift Total 416 460 5265 2332 Weight (kg) 123.4 123.4 123.4 123.4 [...] Labs 07/25/21 0415 07/24/21 0425 07/24/21 0048 07/23/21 2018 07/23/21 18007/23/21 180 NA 136 136 -- -- [...] place without obvious air (more content not included)...[facility]05-22-2022 NoteHNO ID: [id number] Author: Howard Hunt APRN.CRNA Service: Nursing Author Type: Nurse Customer Sales Specialist Type: Anesthesia Procedure Notes Filed: 07/24/2021 2:29 [...] well with no complications SIGNATURE: Howard Hunt APRN.TELESALES CONSULTANT PATIENT NAME: Tien Alexandre DATE: July 24, 2021 TIME: 2:28 PM CSN: [id number] [facility]05-22-2022 NoteHNO ID: [id number] Author: Sepideh Ornelas MD Service: General Surgery Author Type: Physician Type: Progress Notes Filed: 07/24/2021 7:48 PM Note Text: Trauma Surgery Progress Note SERVICE DATE: 07/24/2021 Trauma Service Pager: For questions or concerns Mon-Fri 6a-5p please page [phone]. After 5pm and [...] Therapy: Nasal Cannula IANDO: Date 07/23/21699 - 07/24/2165807/24/21 07 - 07/25/21 0659 Shift 6502-6299 5326-4211 3861-3555 24 Hour Total 1323-6990 5908-3400 0402-8087 24 Hour Total INTAKE IV 1990 1990 [...] 1025) 110 110 5 5 Shift Total 423 413 0767 555 555 Weight (kg) 119.1 119.1 123.4 [...] Recent Labs 07/24/21 0425 07/24/21 0048 07/23/21201707/23/21 1804 07/23/21 18007/22/21 0518 07/21/21 2341 NA 136 -- -- [...] this interval not disp (more content not included)...[facility]05-21-2022 NoteHNO ID: [id number] Author: Janett Griffith RN Service: Nursing Author Type: Registered Nurse Type: Nursing Progress Note Filed: 07/23/2021 10:17 AM Note Text: Patient was able to urinate out 375ml. No straight cath needed. [facility]05-21-2022 NoteHNO ID: [id number] Author: Denia Bragg APRN.CNP Service: General Surgery [...] moderate PTX 3D recon imaging available in [facility] Discussed ORIF of rib fractures with [...] more ribs (07/21/2021) PAF (paroxysmal atrial fibrillation) (HCC) () Anticoagulant long-term use () Obesity, Class II, BMI 35-39.9 (12/13/2020) Fall from ladder (07/22/2021) Sepideh Ornelas MD Department of General Surgery Division of Trauma, Critical Care, and Acute Care Surgery July 23, 2021 12:30 PM Trauma Surgery Progress Note SERVICE DATE: 07/23/2021 Trauma Service Pager: For questions or concerns Mon-Fri 6a-5p please page [phone]. After 5pm and on Weekends and Holidays, please page [phone] if in ICU or [phone] if on RNF. SUBJECTIVE: NAEON. Patient reporting [...] kg/m? O2 Therapy: Room Air IANDO: Date 07/22/21699 - 07/23/2165807/23/21699 - 07/24/21 0659 Shift 0815-4485 5149-5150 4885-6726 24 Hour Total 2815-0633 4814-4642 6120-3661 24 Hour Total INTAKE PO 120 120 [...] BMs 0 x 0 x Shift Total 024 794 7602 80 80 Weight (kg) 119.1 119.1 119.1 [...] rales. Breathing is no (more content not included)...[facility] 07-23-2021 NoteHNO ID: [id number] Author: Janett Griffith RN Service: Nursing Author Type: Registered Nurse Type: Nursing Progress Note Filed: 07/22/2021 11:43 PM Note Text: Bladder scan show 311 [facility]05-20-2022 NoteHNO ID: [id number] Author: Sepideh Ornelas MD Service: General Surgery Author Type: Physician Type: Procedures Filed: 07/22/2021 4:23 PM Note Text: BEDSIDE PROCEDURE NOTE CHEST TUBE Date/Start Time: 07/22/2021 4:00 PM Performed by: Parish Parikh MD Authorized by: Sepideh Ornelas MD This procedure has been performed in part by a resident/fellow under attending's direction Informed Consent Consent Obtained: Written [place] Protocol SIGN IN Sign in communication not [...] provide assistance. Sepideh Ornelas MD 07/22/21 4:23 [facility]05-20-2022 NoteHNO ID: [id number] Author: Amy Bernal RN Service: Care Management Author Type: Registered Nurse Type: Care Mgt Initial Assessment Filed: 07/22/2021 10:17 AM Note Text: CARE MANAGEMENT: ASSESSMENT AND DISCHARGE PLAN SERVICE DATE: July 22, 2021 SERVICE TIME: 10:14 AM PRIMARY CARE PHYSICIAN: Ravinder Ernandez MD ADMISSION STATUS: Inpatient Needs Prior to Discharge: To Be Determined;OT/PT Evaluation MEDICAL: [place] [employer] Patient/Supervisor Blueprinting And Photocopy Stated Goals: To have reduction in symptoms;To have reduction in pain;To return home to life as it was Health Insurance: [facility] Health Issues Impacting Discharge Plan: Chronic Chronic: Afib, RBBB, SOB Last Discharge Date: N/A Is this Within the Past 30 days? 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 Planner Attempted to Assist with AD Completion: Yes [...] None Has the Patient Been in a Fci Facility in the Past 30 days?: No SOCIAL: Living Arrangements: Home Lives With: Spouse Financial Resources: Employed Primary Contact: Extended Emergency Contact Information Primary Emergency Contact: Jasmina Alexandre Mobile Relation: Spouse Supportive Patient Contact:: Yes Contact Resources: Family Family Name/Phone: Jasmina Alexandre [phone] Caregiver AssessmentCaregiver is ready, willing and able [...] Mostly I feel financially burdened by my [id number] expenses for my prescription medication:: 0 - Disagree Mostly Risk Score: 0 Patient is categorized as: Low risk < 2 Are you interested in bedside delivery of your medications? No Is Patient Psychosocially Complex?: No ASSESSMENT AND PLAN: Medical Needs: Medical Needs: Two or more chronic diseases Psychosocial Needs: Psychosocial Needs: None FREEDOM OF CHOICE EXPLAINED: [place] of Choice Given: No Reason Not Given: Unable to complete with this assessment - revisit (need PT/OT recs) POTENTIAL TRANSITION PLANS To Be Determined Spoke with patient. 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 No DME, O2. Family [...] 22, 2021 TIME: 10:14 AM PAGER/CONTACT #: [phone] NoteHNO ID: [id number] Author: Denia Bragg APRN.CENTER MEDICAL AND LAB DIRECTOR Service: General Surgery Author Type: Nurse Practitioner Type: Progress Notes Filed: 07/22/2021 8:58 AM Note Text: Trauma Surgery Progress Note SERVICE DATE: 07/22/2021 Trauma Service Pager: For questions or concerns Mon-Fri 6a-5p please page [phone]. After 5pm and on Weekends and Holidays, please page [phone] if in ICU or [phone] if on [...] kg/m? O2 Therapy: Room Air IANDO: Date 07/21/21699 - 07/22/2165807/22/21699 - 07/23/21 0659 Shift 8887-0774 9042-8632 7591-3138 24 Hour Total 1022-1251 1860-8312 0764-7223 24 Hour Total INTAKE PO 120 120 [...] 50 mg ORAL BID Labs: Recent Labs 07/22/21 0518 07/21/21 2341 NA 139 -- K 4.7 -- [...] Eliquis Imaging performed: 1. CT [facility] @ [place] (07/21) 2. CXR, XR L femur (07/21) 3. CXR (07/22) Traumatic Injuries: 1. Left lateral 2-9 rib fractures, posterior 3-9 rib fractures 2. Small (<5%) left pneumothorax Operations/Procedures: 1. None Care Plan: 1. Left 2-9 rib fx in 2 places, pneumothorax 1. Pulmonary hygiene 2. Pain control 3. 2V CXR 07/22 pending 4. Imaging from [place] to be uploaded 1. Will discuss possible [...] 1. TBD - will follow up on [place] imaging Follow Up Needs: 1. TBD Staff Trauma Surgeon: Dr. Ornelas SIGNATURE: Denia Bragg APRN.CNP PATIENT NAME: Tien Alexandre DATE: 07/22/2021 TIME: 8:50 AM Pager: see below Trauma Service Pager: For questions or concerns Sun-Sun 6a-5p please page [phone]. (more content not included)...[facility]10-11-2021 NoteHNO ID: [id number] Author: Gualberto Redding MD Service: ? Author Type: Physician Type: Progress Notes Filed: 12/13/2020 7:33 PM Note Text: PRIMARY CARE PHYSICIAN: Ravinder Ernandez MD ([facility]) [address] [place] [address] REFERRING PHYSICIAN: Cleveland Perez MD ([facility]) [address] [place] [phone] Patient Care Team: Ravinder Ernandez as PCP - General (Family Practice) Cleveland Perez as Specialty Drawbridge Tender (Cardiology) CHIEF COMPLAINT: Evaluation of arrhythmia, atrial [...] Eliquis. 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 Perez, as he had been evaluated [...] - At risk for stroke low risk, [id number] = 0 - Chest pain - Mixed [...] Heart sounds: Normal he (more content not included)...[facility] Future App[facility]ments Appointment Date:01/25/2022 03:00:00 PM Scheduled Provider:DANA RICARDO DO Location:[facility] Appointment Type:[facility] Future Scheduled Tests Laboratory* Prostate Specific Antigen 09/09/21 * Thyroid Stimulating Hormone 09/09/21 * Complete Blood Count 09/09/21 * Lipid Profile 09/09/21 * Hepatitis C Antibody IgG 09/09/21 * Vitamin D Level 09/09/21 * Complete Metabolic Panel 09/09/21 [facility] Evaluation + Plan note Future Appointments Appointment Date:01/25/2022 03:00:00 PM Scheduled Provider:DANA RICARDO DO Location:[facility] Appointment Type:[facility] Evaluation + Plan note Future Appointments Appointment Date:05/30/2022 10:00:00 AM Scheduled Provider:DANA RICARDO DO Location:[facility] Appointment Type:PC OV [facility] Evaluation + Plan note Future Appointments Appointment Date:12/12/2022 08:30:00 AM Scheduled Provider:DANA RICARDO DO Location:[facility] Appointment Type: OV Future Scheduled Tests Laboratory* Basic Metabolic Panel 08/29/22 * Thyroid Stimulating Hormone 08/29/22 * Free T4 08/29/22 * Uric Acid 08/29/22 * A1C Hemoglobin 08/29/22 * Complete Blood Count 08/29/22 * Lipid Profile 08/29/22 * Albumin/Creatinine Ratio, Random Urine 08/29/22 [facility] Evaluation + Plan note Future Appointments Appointment Date:12/12/2022 08:30:00 AM Scheduled Provider:DANA RICARDO DO Location:[facility] Appointment Type: OV Future Scheduled Tests Laboratory* Albumin/Creatinine Ratio, Random Urine 08/29/22 [facility] Evaluation note* Diagnosis Multiple rib fractures involving four or more ribs- Primary documented in this encounter [facility] note* Diagnosis Closed fracture of multiple ribs of left side, initial encounter Traumatic pneumothorax, subsequent encounter documented in this encounter [facility] note* Diagnosis Multiple rib fractures involving four or more ribs [facility] Narrative No data available for this section [facility] Hospital Discharge instructions No data available for this section [facility] Progress note No data available for this section [facility] Summary Purpose Family History No Family History Records FoundNo Family History Records FoundNo Family History Records FoundNo Family History Records Found No data available for this section No data available for this section No Family History Records Found Advance Directives No Advanced Directives Records FoundDocuments on File Type Date Recorded Patient Supervisor Blueprinting And Photocopy Expl anation Advance Directive(s) 07/21/2021 10:00 PM Additional Source Comments (unrecognized sect ion and content) No Status Records FoundNo Status Records FoundNo Status Records FoundNo Status Records FoundNo Status Records Found INFORMATION SOURCE (unrecogn ized section and content) DATE CREATED AUTHOR AUTHOR'S ORGANIZ ATION 09/22/2019 [facility] DATE CREATED AUTHOR AUTHOR'S ORGANIZ ATION 08/03/2021 [facility] DATE CREATED AUTHOR AUTHOR'S ORGANIZ ATION 11/11/2021 [facility] DATE CREATED AUTHOR AUTHOR'S ORGANIZ ATION 03/16/2023 [facility] ([place]) Source Comments (unrecognize d section and content) In the event this informatio n is protected by the Federal Confidentiality of Alcohol and Drug Abuse Patient Records regulations: The Federal rules restrict any use of the information to criminally investigate or prosecute any alcohol or drug abuse patient.[facility] the event this information is protected by the Federal Confidentiality of Alcohol and Drug Abuse Patient Records regulations: The Federal rules restrict any use of the information to criminally investigate or prosecute any alcohol or drug abuse patient.[facility] Center[facility] the event this information is protected by the Federal Confidentiality of Alcohol and Drug Abuse Patient Records regulations: The Federal rules restrict any use of the information to criminally investigate or prosecute any alcohol or drug abuse patient.[facility] Center[facility] the event this information is protected by the Federal Confidentiality of Alcohol and Drug Abuse Patient Records regulations: The Federal rules restrict any use of the information to criminally investigate or prosecute any alcohol or drug abuse patient.[facility] Center[facility] the event this information is protected by the Federal Confidentiality of Alcohol and Drug Abuse Patient Records regulations: The Federal rules restrict any use of the information to criminally investigate or prosecute any alcohol or drug abuse patient.[facility] Reason for Visit (unrecogniz ed section and content) Reason Comments Post Op rib plating Reason Comments Rib Injury Care Teams (unrecognized sec tion and content) Master Control Engineer Relationship Specialty Start Date End Date Ravinder Ernandez PCP - General Family Practice 01/09/16 Cleveland Perez1 NATHALY VINES [address] [place] [phone] Specialty Drawbridge Tender Cardiology 12/10/20 Master Control Engineer Relationship Specialty Start Date End Date Ravinder Ernandez PCP - General Family Practice 01/09/16 Cleveland Perez1 NATHALY V[address]ES [address] [place] [phone] Specialty Drawbridge Tender Cardiology 12/10/20 Master Control Engineer Relationship Specialty Start Date End Date Ravinder Ernandez PCP - General Family Practice 01/09/16 Cleveland Perez [address] [phone] Specialty Drawbridge Tender Cardiology 12/10/20 Care Team (unrecognized sect ion and content) Care Team Personnel Name: DANA RICARDO DO Position: P4 Physician - Primary Care Member Role: Primary Care Physician Address: Address: [address] [place] [address] Care Team Related Persons Name: JASMINA ALEXANDRE Care Team Personnel Name: DANA RICARDO DO Position: P4 Physician - Primary Care Member Role: Primary Care Physician Address: Address: [address] [place] [address] Care Team Related Persons Name: JASMINA ALEXANDRE [...] BE BASED ON THE PRIMARY CLINICAL RECORDS. [facility] [employer] provides no warranty or guarantee of the accuracy or completeness of information in this document.
--- NOTE | 2023-03-29 11:24 | STRESSREP_ITS ---
Stress Test Report Exercise myocardial perfusion stress test. 67-year-old man with a history of dyspnea Stress protocol: Resting EKG demonstrates atrial fibrillation with a rate of 71 bpm resting blood pressure is 118/82 mmHg. The patient exercised according to the regular Rob protocol for a total duration of 5 minutes and 10 seconds attaining a maximum he art rate of 193 bpm which was 124% of maximum predicted heart rate; the maximum workload was 7 METS metabolic equivalents. At rest there were no ST or T wave changes noted to suggest ischemia and at peak exercise upsloping ST changes only were noted which did not meet the criteria for ischemia. No clinical angina was noted the test was terminated due to the target heart rate being achieved/fatig ue. The peak blood pressure was 160/72 mmHg. Rate-pressure product was 26,000. Myocardial perfusion protocol. 14.9 mCi of technetium 99m sestamibi was injected at rest. The patient exercised according to regular Rob protocol for total duration of 5 minutes and 10 seconds and at peak exercise 44.8 mCi of technetium 99m sestamibi was injected stress images were obtained stress and rest images were reconstructed in comparing the short axis vertical long and horizontal long axis. Gated images were also obtained. Perfusion SPECT analysis: Review of the stress images demonstrate normal uptake of tracer noted in all areas of the myocardium. The resting images similarly demonstrate normal uptake of tracer noted in all areas of the myocardium. No areas of reversibility are noted to suggest ischemia no previous infarct was noted. Gated SPECT analysis: The gated ejection fraction is normal. Conclusion: Normal exercise myocardial perfusion stress test at a moderate workload Preserved ejection fraction. Atrial fibrillation with uncontrolled exercise heart rate.
== END | disposition home or self-care (01) ==
LOC: CVS 06:28
PROVIDERS: Referring Provider Physician Assistant Medical; Visit Provider Physician Assistant Medical
DX: I48.19 Other persistent atrial fibrillation (principal); R06.02 Shortness of breath
CPT/HCPCS: 78452; 93017; 93306; A9500; Q9957; A4216; C8929

== ENCOUNTER → 2023-04-26 | Outpatient (CLI) | payer OTHER, SELFPAY ==
[2023-04-26 14:33] LABS: Anion Gap 3 (5-15); BUN 22 mg/dL (7-18); BUN/Creat Ratio 16.9 RATIO (10-20); Calcium,Total 9.3 mg/dL (8.5-10.1); Chloride 110 mmol/L (98-107); EST Glomerular Filtration Rate 59 mL/min (>60); Est Glom Filt Rate - Afr Amer 71 mL/min (>60); Glucose 108 mg/dL (74-106); Potassium 4.3 mmol/L (3.5-5.1); Sodium Level 140 mmol/L (136-145)
== END | disposition home or self-care (01) ==
LOC: LAB 13:41
PROVIDERS: Referring Provider Physician Assistant Medical; Visit Provider Physician Assistant Medical
DX: I48.19 Other persistent atrial fibrillation (principal)
CPT/HCPCS: 36415; 80048

== ENCOUNTER → 2023-04-30 | Outpatient (CLI) | payer OTHER, SELFPAY | END | disposition home or self-care (01) | LOC: SL 20:11 | PROVIDERS: Referring Provider Physician Assistant Medical; Visit Provider Physician Assistant Medical | DX: G47.33 Obstructive sleep apnea (adult) (pediatric) (principal) | CPT/HCPCS: 95811 ==

== ENCOUNTER 2023-05-07 10:15 | Day surgery (SDC) | payer OTHER, SELFPAY ==
--- NOTE | 2023-04-27 07:57 | PCM.HP.BLA ---
History and Physical Date of Admission: 05/02/23 Tien Reaves is a 67 year old white male who presents today for a DCCV. He has a history of paroxysmal atrial fibrillation, hyperlipidemia and right bundle branch block. It does appear that his paroxysmal atrial fibrillation is now more persistent. He underwent an echocardiogram 03/2023 demonstrated an EF of 65%. Stress test demonstrated Normal exercise myocardial perfusion stress test at a moderate workload, Preserved ejection fraction, Atrial fibrillation with uncontrolled exercise heart rate. He states that he is having more episodes of palpitations. He does find that he is still short of breath with any exertional activity where he needs to lift things. He is not short of breath at rest. He did not get short of breath walking up to our office. He did not have any chest pain. He does not have any lightheadedness, dizziness. He does not have any bleeding issues. He does go to the gym and is fairly active. Allergies: No Known Allergies Allergy (Verified 03/09/23 08:31) Medications: see EMR [facility] Medical History (Updated 03/09/23 @ 08:53 by Renu WOLF PA) Anxiety Chest pain Mixed hyperlipidemia Paroxysmal atrial fibrillation Persistent atrial fibrillation RBBB SOB (shortness of breath) Surgical History History of repair of hiatal hernia History of spinal fusion Family History Father CAD (coronary artery disease) Myocardial infarction Grandfather CAD (coronary artery disease) Myocardial infarction Social History Smoking Status: Never smoker alcohol intake: current details: occasional substance use type: does not use caffeine: Yes Type: coffee Number of servings: 1 ROS Const Const: Negative for fatigue, weakness, fever(s) or headache(s) Eyes Eyes: Negative for blind spots, loss of peripheral vision or transient loss of vision ENT ENT: Negative for headache(s), dizziness, tinnitus, Nosebleed/epistaxis or balance problems Cardio Chest Pain: No Palpitations: No Edema: None Muscle aches with walking: None Resp Respiratory: Positive for SOB with activity; Negative for SOB at rest, SOB orthopnea\SOB lying down or Cough GI GI: Negative nausea, vomiting, heartburn or vomiting blood/hematemesis : Negative for hematuria Musc Musc: Negative for muscle aches/ myalgia, muscle weakness, joint pain or balance problems Neuro Neuro: Negative for dizziness, lightheadedness, near syncope, syncope, orthostatic symptoms, headache(s) or weakness Raphael Hematologic/Lymphatic: Negative for easy bleeding Endo Endo: Negative for fatigue Cardiology Exam Const Appearance: cooperative, healthy appearing, comfortable, no acute distress, well developed and well groomed Nutritional Appearance: overweight Orientation: alert, awake and oriented x3 Head Head: normal to inspection, normocephalic and atraumatic Ears: hearing grossly normal bilaterally Nose: external nose normal Face and Sinus: face symmetric Eyes Eyelids: eyelids normal Conjunctivae: conjunctivae normal Pupils: PERRL EOM: EOM intact bilaterally Neck Neck: normal visual inspection and full ROM Carotids: normal carotid upstroke Chest Chest inspection: normal inspection of the chest, symmetric chest movement and normal respiratory effort Auscultation: Bilateral: Clear to Auscultation Cardio Palpation: normal PMI Rate: regular rate Rhythm: irregularly irregular Heart sounds: S1 normal, S2 normal and murmur Murmur: Grade 2/6, soft, mid systolic and LLSB GI GI: normal to inspection, soft and bowel sounds present Neuro General: patient alert, patient awake, patient oriented x3, gait normal and moves all extremities Skin Skin: no rashes or lesions noted Extremities Pulses: Normal: Right Radial Pulse and Left Radial Pulse Lower Extremity Edema: None: Bilateral Psych Psychological: normal affect Supplemental Info Echocardiogram 03/2023: Normal LV size. Left ventricular systolic function is normal. The estimated ejection fraction is 65 %. No regional wall motion abnormalities noted. Contrast injection was performed. Exercise myocardial perfusion stress test 04/2023: 67-year-old man with a history of dyspnea Stress protocol: Resting EKG demonstrates atrial fibrillation with a rate of 71 bpm resting blood pressure is 118/82 mmHg. The patient exercised according to the regular Rob protocol for a total duration of 5 minutes and 10 seconds attaining a maximum heart rate of 193 bpm which was 124% of maximum predicted heart rate; the maximum workload was 7 METS metabolic equivalents. At rest there were no ST or T wave changes noted to suggest ischemia and at peak exercise upsloping ST changes only were noted which did not meet the criteria for ischemia. No clinical angina was noted the test was terminated due to the target heart rate being achieved/fatigue. The peak blood pressure was 160/72 mmHg. Rate-pressure product was 26,000. Myocardial perfusion protocol. 14.9 mCi of technetium 99m sestamibi was injected at rest. The patient exercised according to regular Rob protocol for total duration of 5 minutes and 10 seconds and at peak exercise 44.8 mCi of technetium 99m sestamibi was injected stress images were obtained stress and rest images were reconstructed in comparing the short axis vertical long and horizontal long axis. Gated images were also obtained. Perfusion SPECT analysis: Review of the stress images demonstrate normal uptake of tracer noted in all areas of the myocardium. The resting images similarly demonstrate normal uptake of tracer noted in all areas of the myocardium. No areas of reversibility are noted to suggest ischemia no previous infarct was noted. Gated SPECT analysis: The gated ejection fraction is normal. Conclusion: Normal exercise myocardial perfusion stress test at a moderate workload Preserved ejection fraction. Atrial fibrillation with uncontrolled exercise heart rate. Assessment and Plan (1) Persistent atrial fibrillation: Will undergo DCCV. If he does not maintain SR would consider antiarrhythmic or referral to EP. Will follow up accoringly.
[2023-05-07 10:34] VITALS: BMI 38.0
--- NOTE | 2023-05-07 12:20 | PCM.OP.PRO ---
Procedure Report Date of Procedure: 05/07/23 DC cardioversion. 67-year-old male with a history of persistent atrial fibrillation who presents for DC cardioversion for symptomatic improvement. The patient has been on anticoagulation for at least 3 to 4 weeks. Patient was seen by Dr. Powers of the critical care division. Informed consent was obtained. Anterior-posterior pads were applied. 70 mg of intravenous propofol was administered and 300 J of synchronized biphasic DC cardioversion energy were applied with prompt reversal to sinus rhythm. Patient tolerated the procedure well. Conclusion: Successful DC cardioversion from atrial fibrillation to sinus rhythm. Follow-up as per office protocol.
--- NOTE | 2023-05-07 12:27 | PRO.PCM_ITS ---
Procedure Report Date of Procedure: 05/07/23 CONSCIOUS SEDATION REPORT DATE OF SERVICE: May 07, 2023 BRIEF HISTORY OF PRESENT ILLNESS: The patient is a 67-year-old male who presented to [facility] for elective outpatient cardioversion due to underlying atrial fibrillation. The patient has never undergone a prior cardioversion. He denied any prior anesthetic complications. The patient was recently diagnosed with obstructive sleep apnea, but is yet to be started on nocturnal PAP therapy. He has no known history of asthma or COPD. His last surface echocardiogram demonstrated an ejection fraction of 55%. The patient is systemically anticoagulated on Eliquis. PHYSICAL EXAMINATION: VITAL SIGNS: Reviewed and were acceptable. GENERAL: The patient is a male, in no apparent distress, speaking in full sentences. HEENT: Normocephalic, atraumatic. Mucous membranes are moist and pink. Good mouth opening noted. Trachea is midline. Good neck mobility. CHEST: S1, S2 irregularly irregular. No murmurs, rubs or gallops were noted. LUNGS: Clear to auscultation bilaterally without appreciable wheezes, rales or rhonchi. ABDOMEN: Soft, nontender, nondistended. Positive bowel sounds. EXTREMITIES: There is no clubbing, cyanosis or edema. ASA Class: II DESCRIPTION OF PROCEDURE: After confirmation of informed consent, the patient's anesthesia plan was reviewed in detail. Propofol was chosen. Risks and benefits were reviewed and the patient agreed to proceed. At 1209, the patient was given his first bolus of propofol. In total, the patient required 70 mg of propofol to achieve an appropriate level of sedation, after which time, he was given a 300 joule synchronized cardio[address] by Dr. Olson at the bedside. This was successful in achieving normal sinus rhythm. The patient was monitored until 1223, at which time he reached his baseline mental status and function. The patient tolerated the procedure well. COMPLICATIONS: None ESTIMATED BLOOD LOSS: None RECOMMENDATIONS: Okay to recover in usual fashion. Procedures Pulmonary [id number]: [id number] Con Sedation
== END 2023-05-07 13:28 | disposition home or self-care (01) ==
LOC: CLSP 10:16
PROVIDERS: Referring Provider Internal Medicine Cardiovascular Disease; Visit Provider Internal Medicine Cardiovascular Disease
DX: I48.19 Other persistent atrial fibrillation (principal); E78.2 Mixed hyperlipidemia; F41.9 Anxiety disorder, unspecified; Z79.01 Long term (current) use of anticoagulants; Z79.899 Other long term (current) drug therapy
CPT/HCPCS: 92960; 93005; J7040